=== PATIENT | female | born 1960 | race Caucasian/White ===

== ENCOUNTER 2017-04-14 10:31 | Inpatient (IN) ==
[2017-04-14] MEDS ORDERED: 0.9 % Sodium Chloride 1,000 ML IVC ONE (10:33)
[2017-04-14] MEDS ORDERED: Ipratropium/Albuterol Neb 3 ML IH ONE (10:33)
[2017-04-14] MEDS ORDERED: methylPREDNISolone 125 MG/2 ML VIAL IVP ONE (10:33)
--- NOTE | 2017-04-14 10:41 | Emergency Department Note ---
Disposition Clinical Impression: COPD (chronic obstructive pulmonary disease) Qualifiers: COPD type: unspecified COPD Qualified Code(s): J44.9 - Chronic obstructive pulmonary disease, unspecified Disposition: Home, Self-Care Condition: Fair General Adult HPI - General Chief complaint: ED Upper Respiratory Infection Stated complaint: cough, fever Time Seen by Provider: 04/14/17 10:33 Source: patient, EMS Mode of arrival: EMS Limitations: no limitations Nursing Notes Reviewed: Yes Vital Signs Reviewed: Yes - History of Present Illness HPI Narrative: 57 year old female history of COPD, hypertension presents for evaluation of dyspnea. Patient notes progressive dyspnea over the past month. Patient is a resident at [facility]. Patients also noted a productive white cough. Patient reports fevers. Patients also been using her albuterol nebs at home. Patient's oxygen dependent on for a half liters. Patient also reports chest pain. Denies nausea vomiting or abdominal pain. Pain Scale: 10 - Related Data Home Medications Medication Instructions Recorded Confirmed Buspirone HCl [Buspar] 15 - 30 mg PO BID 01/06/15 01/30/16 Montelukast [Singulair] 10 mg PO DAILY 01/06/15 01/30/16 Omeprazole [PriLOSEC] 40 mg PO DAILY 01/06/15 01/30/16 Alendronate Sodium 70 mg PO WE 01/08/15 01/30/16 Albuterol Sulfate [Proair Hfa] 2 puff IH Q4-6H PRN 09/02/15 01/30/16 Fluticasone/Salmeterol [Advair 1 each IH BID 09/02/15 01/30/16 250-50 Diskus] Polyethylene Glycol 3350 [MiraLAX] 17 gm PO DAILY PRN 10/01/15 01/30/16 predniSONE [PredniSONE] 10 mg PO DAILY 10/01/15 01/30/16 Cholecalciferol (Vitamin D3) 10,000 unit PO 2XW 01/30/16 01/30/16 [Vitamin D3] Guaifenesin [Mucinex] 1,200 mg PO BID PRN 01/30/16 01/30/16 Metoprolol XL (24 HR) Succ [Toprol 25 mg PO DAILY 01/30/16 01/30/16 Xl] Roflumilast [Daliresp] 500 mcg PO DAILY 01/30/16 01/30/16 Tiotropium [Spiriva] 18 mcg IH 0700 01/30/16 01/30/16 ALPRAZolam [Xanax 1 MG Tablet] 1 mg PO TID PRN 04/14/17 04/14/17 Albuterol Sulfate [Ventolin Hfa] 2 puff PO Q6HR PRN 04/14/17 04/14/17 Guaifenesin [Mucinex] 1,200 mg PO BID 04/14/17 04/14/17 Guaifenesin/Pseudoephedrne HCl 1 each PO 04/14/17 04/14/17 [Mucinex D ER 1,200-120 mg Tab] Ipratropium/Albuterol Neb [Duoneb] 3 ml IH Q6HR 04/14/17 04/14/17 Montelukast [Singulair] 10 mg PO DAILY 04/14/17 04/14/17 Oxycodone HCl 15 mg PO Q4HR PRN 04/14/17 04/14/17 Oxycodone HCl [Oxaydo] 5 mg PO Q4HR PRN 04/14/17 04/14/17 Tiotropium [Spiriva] 18 mcg IH 04/14/17 Previous Rx's Medication Instructions Recorded Azithromycin [Zithromax] 500 mg PO DAILY #10 tablet 02/04/16 Docusate [Colace] 100 mg PO BID #30 capsule 02/04/16 Ipratropium/Albuterol Neb [Duoneb] 3 ml IH Q4HR PRN #30 vial.neb 02/04/16 predniSONE [PredniSONE] 60 mg PO DAILY 10 Days tablet 02/04/16 ALPRAZolam [Xanax 0.5 MG Tablet] 0.75 mg PO HS #14 tablet 02/05/16 Ondansetron HCl [Zofran] 4 mg PO 2-3XD PRN #20 tablet 03/17/16 Allergies Allergy/AdvReac Type Severity Reaction Status Date / Time acetaminophen [From Tylenol] Allergy Rash Verified 09/23/15 06:03 chlordiazepoxide Allergy Rash Verified 09/23/15 06:03 [From Librium] All systems ED: reviewed and negative except as stated. Constitutional: Reports: as per HPI, fever Eyes: Reports: as per HPI ENT ED: Reports: as per HPI Cardiovascular: Reports: as per HPI, chest pain Respiratory: Reports: as per HPI, cough, dyspnea, sputum production Gastrointestinal: Reports: as per HPI. Denies: abdominal pain, nausea, vomiting Genitourinary: Reports: as per HPI Musculoskeletal: Reports: as per HPI Integumentary: Reports: as per HPI Neurological: Reports: as per HPI Psychiatric: Reports: as per HPI Endocrine: Reports: as per HPI Hematological/Lymphatic: Reports: as per HPI Past Medical History - Past Medical History Medical history: Reports: COPD, hypertension, RA Surgical history: Reports: non-contributory Psychiatric history: Reports: anxiety DIETIST history: Reports: no DIETIST history - Social History Smoking Status: Former smoker Smokeless Tobacco Status: No Alcohol use: Reports: none Drug use: Reports: none Physical Exam - General Limitations: no limitations General appearance: alert, in no apparent distress - Head Head exam: atraumatic, normocephalic, normal inspection - Eye Eye exam: Present: normal appearance, EOMI - ENT ENT exam: normal exam, mucous membranes moist - Neck Neck exam: Present: normal inspection - Chest Chest inspection: Present: normal inspection, symmetric chest wall rise - Respiratory Respiratory exam: Present: other (Diffusely diminished with scattered rhonchi). Absent: respiratory distress - Cardiovascular Cardiovascular exam: Present: regular rate - Abdominal Exam Abdominal exam: Present: soft, Non-Tender - Extremities Exam Extremities exam: Present: normal inspection. Absent: pedal edema - Back Exam Back exam: Present: normal inspection - Neurological Exam Neurological exam: Present: alert, oriented X3 - Skin Skin exam: Present: warm, dry, intact, normal color Course Course Narrative: She presents via EMS. Patient appeared to have increased work of breathing. Patient will get a chest x-ray, troponin and steroids. Basic labs EKG. Disposition likely admission. - Reevaluation(s) Reevaluation #1: Patient airways appeared to improve with aerosols and steroids. Patient's chest x-ray shows no focal findings. However the patient remains tachycardic requiring oxygen supplementation. Given the patient's chest x-ray findings and her structural kyphosis a CT scan of the chest will be ordered to further identify any potential etiology of the patient's symptoms. Time: 11:50 Vital Signs Temperature 98.4 F 04/14/17 10:33 Pulse Rate 102 04/14/17 10:33 Respiratory Rate 21 12/28/17 10:33 Blood Pressure 116/74 04/14/17 10:33 O2 Sat by Pulse Oximetry 99 04/14/17 10:33 Temperature 98.2 F 04/14/17 18:43 Pulse Rate 105 04/14/17 18:43 Respiratory Rate 18 04/14/17 18:43 Blood Pressure 95/64 04/14/17 18:43 O2 Sat by Pulse Oximetry 94 04/14/17 18:43 Oxygen Delivery Oxygen Delivery Room Air Medical Decision Making - [facility] Narrative Medical decision making narrative: 57-year-old female presents for evaluation of a cough and fever. Had subjective fevers. Presents from a nursing facility. Patient appeared to be in moderate distress with increased work of breathing. Patient was not requiring increased oxygen supplementation. Baseline 4.5 L. Patient was treated with triple nebs as well as steroids. Patient's increased work of breathing has improved. Patient remained tachycardic. Patient's chest x-ray shows no acute findings. Did show remote granulomatous process patient denies history of TB or TB exposure. Given the patient's tachycardia as well as chest x-ray findings a CT of the chest will be pursued. Patient was also started on Levaquin given her productive cough and high risk for COPD. - Lab Data Lab results reviewed: Yes I reviewed the patient's lab results. Result diagrams: 04/14/17 10:43 04/14/17 10:43 Lab Results 04/14/17 04/14/17 04/14/17 Range/Units 10:43 10:43 10:43 WBC 4.8 (4.3-11.1) K/mcL RBC 4.03 (3.82-4.97) M/mcL Hgb 9.5 L (11.5-15.4) g/dL Hct 32.3 L (35.3-44.9) % MCV 80.1 L (83.0-100.0) fL MCH 23.6 L (28.0-33.3) pg MCHC 29.4 L (31.6-35.5) g/dL RDW 15.1 H (11.5-14.5) % Plt Count 231 (140-400) K/mcL MPV 8.9 L (9.4-12.4) fL Immature Gran % 0.6 (0-4) % Seg Neutrophils % 71.9 % Lymphocytes % 13.1 % Monocytes % 12.5 % Eosinophils % 1.7 % Basophils % 0.2 % Neutrophils # 3.5 (1.6-8.9) K/mcL Lymphocytes # 0.6 (0.6-4.6) K/mcL Monocytes # 0.6 (0.0-1.3) K/mcL Eosinophils # 0.1 (0.0-0.6) K/mcL Basophils # 0.0 (0.0-0.2) K/mcL Sodium 132 L (136-145) mEq/L Potassium 4.6 (3.5-5.1) mEq/L Chloride 95 L (98-107) mEq/L Carbon Dioxide 35 H (23-29) mEq/L BUN 8 (6-20) mg/dL Creatinine 0.51 L (0.60-1.20) mg/dL Est GFR ( Amer) > 60 (> 60) Est GFR (Non-Af Amer) > 60 (> 60) BUN/Creatinine Ratio 16 (6-26) Glucose 107 H (70-105) mg/dL Calculated Osmolality 273 L (280-300) Lactic Acid 1.1 (0.5-2.2) mmol/L Calcium 9.2 (8.6-10.3) mg/dL Troponin I (< 0.04) ng/mL B-Natriuretic Peptide (Less than 100) pg/mL 04/14/17 04/14/17 Range/Units 10:43 10:43 WBC (4.3-11.1) K/mcL RBC (3.82-4.97) M/mcL Hgb (11.5-15.4) g/dL Hct (35.3-44.9) % MCV (83.0-100.0) fL MCH (28.0-33.3) pg MCHC (31.6-35.5) g/dL RDW (11.5-14.5) % Plt Count (140-400) K/mcL MPV (9.4-12.4) fL Immature Gran % (0-4) % Seg Neutrophils % % Lymphocytes % % Monocytes % % Eosinophils % % Basophils % % Neutrophils # (1.6-8.9) K/mcL Lymphocytes # (0.6-4.6) K/mcL Monocytes # (0.0-1.3) K/mcL Eosinophils # (0.0-0.6) K/mcL Basophils # (0.0-0.2) K/mcL Sodium (136-145) mEq/L Potassium (3.5-5.1) mEq/L Chloride (98-107) mEq/L Carbon Dioxide (23-29) mEq/L BUN (6-20) mg/dL Creatinine (0.60-1.20) mg/dL Est GFR ( Amer) (> 60) Est GFR (Non-Af Amer) (> 60) BUN/Creatinine Ratio (6-26) Glucose (70-105) mg/dL Calculated Osmolality (280-300) Lactic Acid (0.5-2.2) mmol/L Calcium (8.6-10.3) mg/dL Troponin I < 0.03 (< 0.04) ng/mL B-Natriuretic Peptide 39 (Less than 100) pg/mL - Radiology Data Radiology results reviewed: Yes I reviewed the patient's radiology results. Chest X-Ray 04/14/17 10:33 IMPRESSION: 1. No acute pulmonary process or findings concerning for post primary tuberculosis. 2. Mediastinal calcified lymph nodes consistent with remote healed granulomatous process. D/ /14/2017 11:32:44 Baljeet Fontana MD / mervat Interpreting Provider: Baljeet Fontana MD Chest X-Ray 04/14/17 10:33 IMPRESSION: 1. No acute pulmonary process or findings concerning for post primary tuberculosis. 2. Mediastinal calcified lymph nodes consistent with remote healed granulomatous process. D/ /14/2017 11:32:44 Baljeet Fontana MD / mervat Interpreting Provider: Baljeet Fontana MD Chest CTA 04/14/17 11:49 IMPRESSION: Patient respiratory motion artifact somewhat limits evaluation. Within this limitation no definite evidence for pulmonary embolism identified. No acute findings are seen to the chest. Stable cardiomegaly. Emphysema. D/ / 04/14/2017 13:20:35 Ricco Fisher MD / shaka Interpreting Provider: Ricco Fisher MD - EKG Data EKG #1 EKG attestation: Yes I reviewed and interpreted this EKG. EKG shows normal: sinus rhythm Rate: tachycardia Rhythm: NSR Selden/QRS: left axis deviation Q waves: III, aVF T wave inversions noted in: v1, v2, v3 When compared to previous EKG there are: no significant changes Interpretation: no acute changes, unchanged when compared to prior tracing (date ) (2015) S.BJay Jay - Daniel Situation: Demographics Background: Presenting Complaint Assessment: Vital Signs, Course and respsone to treatment, Patient/Family Expectation Recommendation: Barrier(s) to disposition, Recommendation based on pending studies, treatments, or consults S.BJay Jay Report Given to: Dr. Chapo Sanchez Repor Time: 12:17 Attestation Statement - Attestation Attestation: I examined this patient and my medical decision-making was reviewed with the Resident Physician. I agree with the documented findings, disposition and treatment plan as described except to the extent set forth below. Patiently ED with shortness of breath. Cough. Congested. Sent from the longterm. She states she has been sick for a couple of weeks. On examination she is mildly tachypneic. Lungs diminished. Diffuse wheezing on arrival. Plan. Nebs and steroids. Chest x-ray does not show any obvious acute process. Checking a CTA as the patient is tachycardic. CTA does not show an obvious primary embolism. Patient was admitted to hospitalist.
[2017-04-14 11:02] LABS: Basophils % 0.2 %; Eosinophils # 0.1 K/mcL (0.0-0.6); Eosinophils % 1.7 %; Hematocrit 32.3 % (35.3-44.9); Hemoglobin 9.5 g/dL (11.5-15.4); Immature Granulocytes % 0.6 % (0-4); Lymphocytes # 0.6 K/mcL (0.6-4.6); Lymphocytes % 13.1 %; Mean Corpuscular HGB Conc 29.4 g/dL (31.6-35.5); Mean Corpuscular Hemoglobin 23.6 pg (28.0-33.3); Mean Corpuscular Volume 80.1 fL (83.0-100.0); Mean Platelet Volume 8.9 fL (9.4-12.4); Monocytes # 0.6 K/mcL (0.0-1.3); Monocytes % 12.5 %; Neutrophils # 3.5 K/mcL (1.6-8.9); Platelet Count 231 K/mcL (140-400); Red Blood Count 4.03 M/mcL (3.82-4.97); Red Cell Distribution Width 15.1 % (11.5-14.5); Segmented Neutrophils % 71.9 %
[2017-04-14 11:14] LABS: BUN/Creatinine Ratio 16 (6-26); Blood Urea Nitrogen 8 mg/dL (6-20); Calcium 9.2 mg/dL (8.6-10.3); Carbon Dioxide 35 mEq/L (23-29); Chloride 95 mEq/L (98-107); Glucose 107 mg/dL (70-105); Osmolality,Calculated 273 (280-300); Potassium 4.6 mEq/L (3.5-5.1); Sodium 132 mEq/L (136-145); eGFR For African Americans > 60 (> 60); eGFR For Non-African Americans > 60 (> 60)
[2017-04-14] MEDS ORDERED: Levofloxacin 750 MG/150 ML 750 MG/150 ML BAG IVPB ONE (11:42)
[2017-04-14] MEDS ORDERED: *HR* OxyCODONE Immed Rel 5 MG TABLET PO ONE (11:51)
[2017-04-14] MEDS ORDERED: Lidocaine -MPF 1% 2 ML VIAL INFILT ONE (12:14)
--- NOTE | 2017-04-14 14:51 | Internal Med History&Physical ---
Date of Encounter: 04/15/17 Time of Encounter: 18:00 Assessment and Plan (1) Acute exacerbation of chronic obstructive airways disease Current visit: No Status: Acute - SOB due to *COPD exacerbation caused by URTI vs allergen exposureVs medication nonocompliance - no infiltrate on CXR PLAN: - Aerosols q 4 hr and PRN SOB - Solu-medrol 40 mg IV q 6 hr - O2 to keep SpO2 higher than 92% (SpO higher than 95% if CAD) - CBCD, BMP in AM - Sputum Gram stain, C+S - Tylenol 650 mg PO q 4-6 hr PRN pain/fever - Home meds - check the list and restart - ABS (2) Normocytic anemia Current visit: No Status: Chronic H&H is stable, Cont to monitor. (3) HTN (hypertension) Current visit: No Status: Chronic The home meds list is not including antihypertensive meds, we will monitor Blood pressure and start PRN antihypertensive while inpatient. Qualifiers: Hypertension type: essential hypertension Qualified Code(s): I10 - Essential (primary) hypertension (4) Anxiety Current visit: No Status: Chronic (5) Hyponatremia Current visit: Yes Status: Acute Hypovolumic hyponatremia, starting fluid hydration with NS. (6) DVT prophylaxis Current visit: No Status: Acute - Heparin 5000 U SQ BID Internal Medicine - H&P: HPI Admitted From: Long-term Nursing Facility Plans for Post Hospital Care: Home History of present illness: Ms. Stark is a 57 year old female with past medical history of COPD (oxygen dependent 4.5 L), hypertension presents with progressive SOB associated with productive white cough and fever. Patient was treated with triple nebs as well as steroids. Patient's increased work of breathing has improved. Patient remained so CTA was obtained to R/O PE and was negative. The patient was admitted for further evaluation of COPD. Past Med Surg Social Fam HX - Past Medical History Medical history: COPD, hypertension, RA Psychiatric history: anxiety - Past Surgical History Surgical History: non-contributory - Social History Smoking Status: Former smoker Smokeless Tobacco Status: No Alcohol use: none Drug use: none - Family History Father History Unknown: Yes Living Status: Brother History Unknown: Yes Hx Family Cardiac Disorders: Yes (HTN) Hx Family Respiratory Disorders: Yes (COPD) Hx Family Cancer: No Hx Family GI Disorders: No Hx Family Endocrine Disorder: No Hx Family Neuromuscular Disorders: No Hx Family Neurologic Disorders: No Hx Family HEENT Disorders: No Hx Family Autoimmune Disorders: No Internal Medicine - H&P: Meds Buspirone HCl [Buspar] 15 - 30 mg PO BID 01/06/15 [History] Montelukast [Singulair] 10 mg PO DAILY 01/06/15 [History] Omeprazole [PriLOSEC] 40 mg PO DAILY 01/06/15 [History] Alendronate Sodium 70 mg PO WE 01/08/15 [History] Albuterol Sulfate [Proair Hfa] 2 puff IH Q4-6H PRN 09/02/15 [History] Fluticasone/Salmeterol [Advair 250-50 Diskus] 1 each IH BID 09/02/15 [History] Polyethylene Glycol 3350 [MiraLAX] 17 gm PO DAILY PRN 10/01/15 [History] predniSONE [PredniSONE] 10 mg PO DAILY 10/01/15 [History] Cholecalciferol (Vitamin D3) [Vitamin D3] 10,000 unit PO 2XW 01/30/16 [History] Guaifenesin [Mucinex] 1,200 mg PO BID PRN 01/30/16 [History] Metoprolol XL (24 HR) Succ [Toprol Xl] 25 mg PO DAILY 01/30/16 [History] Roflumilast [Daliresp] 500 mcg PO DAILY 01/30/16 [History] Tiotropium [Spiriva] 18 mcg IH 0700 01/30/16 [History] Azithromycin [Zithromax] 500 mg PO DAILY #10 tablet 02/04/16 [Rx] Docusate [Colace] 100 mg PO BID #30 capsule 02/04/16 [Rx] Ipratropium/Albuterol Neb [Duoneb] 3 ml IH Q4HR PRN #30 vial.neb 02/04/16 [Rx] predniSONE [PredniSONE] 60 mg PO DAILY 10 Days tablet 02/04/16 [Rx] ALPRAZolam [Xanax 0.5 MG Tablet] 0.75 mg PO HS #14 tablet 02/05/16 [Rx] Ondansetron HCl [Zofran] 4 mg PO 2-3XD PRN #20 tablet 03/17/16 [Rx] ALPRAZolam [Xanax 1 MG Tablet] 1 mg PO TID PRN 04/14/17 [History] Albuterol Sulfate [Ventolin Hfa] 2 puff PO Q6HR PRN 04/14/17 [History] Guaifenesin [Mucinex] 1,200 mg PO BID 04/14/17 [History] Guaifenesin/Pseudoephedrne HCl [Mucinex D ER 1,200-120 mg Tab] 1 each PO [History] Ipratropium/Albuterol Neb [Duoneb] 3 ml IH Q6HR 04/14/17 [History] Montelukast [Singulair] 10 mg PO DAILY 04/14/17 [History] Oxycodone HCl 15 mg PO Q4HR PRN 04/14/17 [History] Oxycodone HCl [Oxaydo] 5 mg PO Q4HR PRN 04/14/17 [History] Tiotropium [Spiriva] 18 mcg IH 04/14/17 [History] 3 Allergy/AdvReac Type Severity Reaction Status Date / Time acetaminophen [From Tylenol] Allergy Rash Verified 09/23/15 06:03 chlordiazepoxide Allergy Rash Verified 09/23/15 06:03 [From Librium] All Systems PM: A 10-system review of systems was performed and is negative for pertinent findings except as documented above in the HPI. - Constitutional Constitutional: fatigue, no chills, no fever(s), no night sweats - Cardiovascular Cardiovascular ROS IM: chest pain, dyspnea, no diaphoresis, no lightheadedness, no palpitations, no syncope - Respiratory Respiratory: cough, dyspnea, wheezing, chest congestion, excessive phlegm production - Gastrointestinal Gastrointestinal: no abdominal pain, no diarrhea, no hematemesis, no hematochezia, no melena, no nausea, no vomiting - Genitourinary Genitourinary: no change in urinary stream, no dysuria, no flank pain, no hematuria - Neurological Neurological ROS: no confusion, no convulsions, no focal weakness, no numbness, no tingling, no tremor(s) - Constitutional Vitals: Temp Pulse Resp BP Pulse Ox 98.9 F 117 18 104/68 94 04/14/17 13:55 04/14/17 13:55 04/14/17 13:55 04/14/17 13:55 04/14/17 13:55 General appearance: Present: mild distress, A&O X 3, pleasant - Head Head exam: Present: atraumatic, normocephalic - Neck Neck exam general surgery: Present: supple, trachea midline. Absent: lymphadenopathy - Respiratory Respiratory exam: Present: rhonchi, wheezes. Absent: accessory muscle use, rales - Cardiovascular Cardiovascular exam: Present: RRR, +S1, +S2. Absent: diastolic murmur, gallop, rubs, systolic murmur - Extremities Exam Extremities exam: Present: warm, radial pulses palpable and symmetrical. Absent : calf tenderness, cyanotic, pedal edema - Neurological Exam Neurological exam: Present: CN II-XII intact, oriented X3, no focal deficits. Absent: pronater drift, facial droop, speech deficit Internal Med - H&P Results - Labs CBC & Chem 7: 04/15/17 03:22 04/15/17 03:22 - VTE Documentation of Mechanical Device: Intermittent pneumatic compression device
[2017-04-14] MEDS ORDERED: Acetaminophen 325 MG TABLET PO PRN (15:28)
[2017-04-14] MEDS ORDERED: Naloxone 0.4 MG/ML INJ IVP PRN (15:28)
[2017-04-14] MEDS ORDERED: 0.9 % Sodium Chloride 1,000 ML IVC SCH (15:30)
[2017-04-14] MEDS: Ipratropium/Albuterol Neb 3 ML IH SCH ×2 (16:16→22:03)
[2017-04-14] MEDS: 0.9 % Sodium Chloride 1,000 ML IVC SCH (16:25)
[2017-04-14] MEDS: *HR* Morphine 2 MG/ML SYRINGE IVP PRN ×2 (16:25→20:37)
[2017-04-14] MEDS ORDERED: Ipratropium/Albuterol Neb 3 ML IH SCH (17:00)
[2017-04-14] MEDS: MethylPREDNISolone 40 MG/ML VIAL IVP SCH (17:12)
[2017-04-14] MEDS: *HR* OxyCODONE Immed Rel 15 MG TABLET PO PRN (17:12)
[2017-04-14] MEDS: ALPRAZolam 1 MG TABLET PO PRN ×2 (17:17→20:42)
[2017-04-14] MEDS: *HR* OxyCODONE Immed Rel 5 MG TABLET PO PRN (19:42)
[2017-04-15] MEDS: *HR* OxyCODONE Immed Rel 15 MG TABLET PO PRN ×4 (00:01→18:36)
[2017-04-15] MEDS: MethylPREDNISolone 40 MG/ML VIAL IVP SCH ×5 (00:01→22:13)
[2017-04-15] MEDS: *HR* Morphine 2 MG/ML SYRINGE IVP PRN ×4 (03:11→22:12)
[2017-04-15] MEDS: Ipratropium/Albuterol Neb 3 ML IH SCH ×4 (03:42→21:05)
[2017-04-15 04:09] LABS: Hemoglobin 8.6 g/dL (11.5-15.4); Immature Granulocytes % 0.7 % (0-4); Lymphocytes # 0.3 K/mcL (0.6-4.6); Lymphocytes % 12.2 %; Mean Corpuscular HGB Conc 29.7 g/dL (31.6-35.5); Mean Corpuscular Hemoglobin 23.8 pg (28.0-33.3); Mean Corpuscular Volume 80.1 fL (83.0-100.0); Mean Platelet Volume 9.5 fL (9.4-12.4); Monocytes # 0.1 K/mcL (0.0-1.3); Monocytes % 2.6 %; Neutrophils # 2.3 K/mcL (1.6-8.9); Platelet Count 215 K/mcL (140-400); Red Blood Count 3.62 M/mcL (3.82-4.97); Red Cell Distribution Width 15.2 % (11.5-14.5); Segmented Neutrophils % 84.5 %
[2017-04-15] MEDS: 0.9 % Sodium Chloride 1,000 ML IVC SCH ×3 (04:09→22:11)
[2017-04-15 04:18] LABS: INR 1.1; Prothrombin Time 12.2 Seconds (9.4-12.1)
[2017-04-15 04:21] LABS: Activated Partial Thrombo Time 33.7 Seconds (26.0-36.0)
[2017-04-15 04:23] LABS: Alanine Aminotransferase 12 Units/L (7-52); Albumin 3.5 g/dL (3.5-5.7); Albumin/Globulin Ratio 1.1 (1.1-2.2); Alkaline Phosphatase 62 Units/L (34-104); Aspartate Amino Transferase 12 Units/L (13-39); BUN/Creatinine Ratio 16 (6-26); Bilirubin,Total 0.2 mg/dL (0.3-1.0); Blood Urea Nitrogen 7 mg/dL (6-20); Calcium 8.4 mg/dL (8.6-10.3); Carbon Dioxide 31 mEq/L (23-29); Chloride 103 mEq/L (98-107); Chol/HDL Ratio 2.1 (0-4.9); Cholesterol 177 mg/dL (< 200); Globulin 3.2 g/dL (2.4-3.5); Glucose 162 mg/dL (70-105); HDL Cholesterol 83 mg/dL (40-59); LDL Cholesterol,Calculated 86 mg/dL (0-99); Magnesium 1.9 mg/dL (1.6-2.6); Osmolality,Calculated 288 (280-300); Phosphorous 2.3 mg/dL (2.7-4.5); Potassium 3.8 mEq/L (3.5-5.1); Sodium 138 mEq/L (136-145); Total Protein 6.7 g/dL (6.4-8.9); Triglycerides 38 mg/dL (< 150); eGFR For African Americans > 60 (> 60); eGFR For Non-African Americans > 60 (> 60)
[2017-04-15 05:11] LABS: % Iron Saturation 4 % (15-50); Iron 21 mcg/dL (50-170); Transferrin 336 mg/dL (203-362)
[2017-04-15] MEDS: *HR* OxyCODONE Immed Rel 5 MG TABLET PO PRN ×2 (05:27→18:57)
[2017-04-15] MEDS: Ondansetron ODT 4 MG TAB.RAPDIS SL PRN (05:27)
[2017-04-15] MEDS: *HR* Heparin 5,000 UNIT/ML VIAL SQ SCH ×2 (05:27→16:43)
[2017-04-15] MEDS ORDERED: Levofloxacin 500 MG/100 ML 500 MG/100 ML BAG IVPB SCH (09:00)
[2017-04-15] MEDS: levoFLOXacin 500 MG TABLET PO SCH (09:01)
[2017-04-15] MEDS: ALPRAZolam 1 MG TABLET PO PRN ×2 (09:17→18:57)
--- NOTE | 2017-04-15 09:26 | Electrocardiograph Report ---
[address] [place] [address] Test Date: 2017-04-14 Pat Name: Anju Stark Department: 104 Room: 2A36 Gender: F Operator Receptionist: GERALDINE : 1960 Requested By: Kalpesh Quiros Order Number: [id number] Reading MD: Monse Rowley Measurements Intervals Wall Rate: 103 P: 21 CT: 143 QRS: -11 QRSD: 86 T: 9 QT: 316 QTc: 375 Interpretive Statements SINUS TACHYCARDIA MODERATE T-WAVE ABNORMALITY, CONSIDER ANTERIOR ISCHEMIA Electronically Signed On 04-15-2017 9:24:27 EST by Monse Rowley
[2017-04-15] MEDS ORDERED: Tiotropium 18 MCG inhalation IH SCH (10:00)
--- NOTE | 2017-04-15 10:45 | Internal Med Progress Note ---
<Mirian Murphy - Last Filed: 04/15/17 15:56> Date of Encounter: 04/15/17 Time of Encounter: 10:00 - Assessment and plan (1) Acute and chronic respiratory failure ([id number]) Current Visit: No Status: Acute Assessment and plan: - Progressive dyspnea on admission. - Secondary to COPD exacerbation - CTA chest found emphysema but no acute abnormality. No evidence of PE. - Continue Solu-Medrol, Symbicort, bronchodilators and supplemental oxygen for COPD. - Continue to monitor closely. Qualifiers: Respiratory failure complication: hypoxia and hypercapnia Qualified Code(s) : J96.21 - Acute and chronic respiratory failure with hypoxia; J96.22 - Acute and chronic respiratory failure with hypercapnia; J96.22 - Acute and chronic respiratory failure with hypercapnia; J96.22 - Acute and chronic respiratory failure with hypercapnia (2) Acute exacerbation of chronic obstructive airways disease Current Visit: No Status: Acute Assessment and plan: - CTA chest found emphysema but no acute abnormality. - Continue Solu-Medrol, Symbicort, bronchodilators and supplemental oxygen. (3) Anemia Current Visit: Yes Status: Chronic Assessment and plan: - Hgb 9.5 on admission. - Likely iron deficiency anemia given low iron on iron panel. - Hgb dropped to 8.6 today. - Patient denies hematochezia, melena, hematuria or other sign of active bleeding. - Will check stool occult test. - Start iron supplement. - Continue to monitor Hgb closely Qualifiers: Anemia type: iron deficiency Iron deficiency anemia type: unspecified iron deficiency Qualified Code(s): D50.9 - Iron deficiency anemia, unspecified (4) Anxiety Current Visit: No Status: Chronic Assessment and plan: - Continue patient's home regimen of Xanax. (5) Hyponatremia Current Visit: Yes Status: Acute Assessment and plan: - Na 132 on admission. - Improves as 138 today. - Continue to monitor. (6) HTN (hypertension) Current Visit: No Status: Chronic Assessment and plan: - BP within normal range most of time. - Continue current antihypertensive regimen. Qualifiers: Hypertension type: essential hypertension Qualified Code(s): I10 - Essential (primary) hypertension (7) DVT prophylaxis Current Visit: No Status: Acute Assessment and plan: - Continue SQ heparin - Subjective Interval history: Patient was seen and examined this morning. Patient still has some cough and reports breathing better. Patient complains about her chronic back pain and likes to be on pain medications as the way she got in [facility]. Patient denies fever, chills, chest pain, abdominal pain, nausea, vomiting, diarrhea. Patient reports using 4.5 L oxygen at [facility]. - Constitutional Vitals: Temp Pulse Resp BP Pulse Ox 98.0 F 95 18 137/88 97 04/15/17 07:07 04/15/17 07:07 04/15/17 07:07 04/15/17 07:07 04/15/17 07:07 General appearance: Present: mild distress, A&O X 3, pleasant - Head Head exam: Present: normal inspection - Eye Eye exam: Present: EOMI, conjuntiva pink, sclera anicteric - Neck Neck exam general surgery: Present: normal inspection, supple, trachea midline - Respiratory Respiratory exam: Present: wheezes. Absent: accessory muscle use - Cardiovascular Cardiovascular exam: Present: RRR, +S1, +S2 - GI/Abdominal GI/Abdominal exam: Present: normal bowel sounds, soft, no peritoneal signs. Absent: tenderness - Extremities Exam Extremities exam: Present: pedal edema, warm. Absent: cyanotic - Neurological Exam Neurological exam: Present: alert, oriented X3. Absent: facial droop, speech deficit - Skin Skin exam: Present: dry, warm Internal Medicine: Result - Labs CBC & Chem 7: 04/15/17 03:22 04/15/17 03:22 Labs: Short CBC 04/15/17 Range/Units 03:22 WBC 2.7 L (4.3-11.1) K/mcL Hgb 8.6 L (11.5-15.4) g/dL Hct 29.0 L (35.3-44.9) % Plt Count 215 (140-400) K/mcL Neutrophils # 2.3 (1.6-8.9) K/mcL BMP 04/15/17 03:22 Sodium 138 Potassium 3.8 Chloride 103 Carbon Dioxide 31 H BUN 7 Creatinine 0.45 L Glucose 162 H Calcium 8.4 L Cardiac Enzymes 04/14/17 04/14/17 04/15/17 Range/Units 16:39 22:48 03:22 Troponin I < 0.03 < 0.03 < 0.03 (< 0.04) ng/mL Liver Function 04/15/17 Range/Units 03:22 Total Bilirubin 0.2 L (0.3-1.0) mg/dL AST 12 L (13-39) Units/L ALT 12 (7-52) Units/L Alkaline Phosphatase 62 (34-104) Units/L Albumin 3.5 (3.5-5.7) g/dL - ABG Interpretation ABG results: PT/INR, D-dimer PT 12.2 Seconds (9.4-12.1) H 04/15/17 03:22 - VTE Documentation of Mechanical Device: Intermittent pneumatic compression device Consult Discharge Plan - Plan Referrals: Michael Higginbotham MD [Primary Care Provider] - <Josh Robert - Last Filed: 04/15/17 18:57> Date of Encounter: 04/15/17 - Assessment and plan (1) Acute and chronic respiratory failure ([id number]) Current Visit: No Status: Acute Qualifiers: Respiratory failure complication: hypoxia and hypercapnia Qualified Code(s) : J96.21 - Acute and chronic respiratory failure with hypoxia; J96.22 - Acute and chronic respiratory failure with hypercapnia; J96.22 - Acute and chronic respiratory failure with hypercapnia; J96.22 - Acute and chronic respiratory failure with hypercapnia (2) COPD (chronic obstructive pulmonary disease) Current Visit: Yes Status: Acute Qualifiers: COPD type: COPD with acute exacerbation Qualified Code(s): J44.1 - Chronic obstructive pulmonary disease with (acute) exacerbation (3) Anemia Current Visit: Yes Status: Chronic Qualifiers: Anemia type: iron deficiency Iron deficiency anemia type: unspecified iron deficiency Qualified Code(s): D50.9 - Iron deficiency anemia, unspecified (4) Hyponatremia Current Visit: Yes Status: Acute (5) HTN (hypertension) Current Visit: No Status: Chronic Qualifiers: Hypertension type: essential hypertension Qualified Code(s): I10 - Essential (primary) hypertension (6) Anxiety Current Visit: No Status: Chronic - Constitutional Vitals: Temp Pulse Resp BP Pulse Ox 98.1 F 107 20 143/79 96 04/15/17 15:16 04/15/17 15:16 04/15/17 15:24 04/15/17 15:16 04/15/17 15:24 Internal Medicine: Result - Labs CBC & Chem 7: 04/15/17 03:22 04/15/17 03:22 Labs: Short CBC 04/15/17 Range/Units 03:22 WBC 2.7 L (4.3-11.1) K/mcL Hgb 8.6 L (11.5-15.4) g/dL Hct 29.0 L (35.3-44.9) % Plt Count 215 (140-400) K/mcL Neutrophils # 2.3 (1.6-8.9) K/mcL BMP 04/15/17 03:22 Sodium 138 Potassium 3.8 Chloride 103 Carbon Dioxide 31 H BUN 7 Creatinine 0.45 L Glucose 162 H Calcium 8.4 L Cardiac Enzymes 04/14/17 04/15/17 Range/Units 22:48 03:22 Troponin I < 0.03 < 0.03 (< 0.04) ng/mL Liver Function 04/15/17 Range/Units 03:22 Total Bilirubin 0.2 L (0.3-1.0) mg/dL AST 12 L (13-39) Units/L ALT 12 (7-52) Units/L Alkaline Phosphatase 62 (34-104) Units/L Albumin 3.5 (3.5-5.7) g/dL Urine 04/15/17 Range/Units 18:10 Urine Color Yellow (Yellow) Urine Clarity Clear (Clear) Urine pH 6.5 (5.0-8.0) pH Units Ur Specific Rule 1.010 (1.010-1.025) Urine Protein Negative (Neg-Trace) mg/dL Urine Glucose (UA) Normal (Normal) mg/dL - ABG Interpretation ABG results: PT/INR, D-dimer PT 12.2 Seconds (9.4-12.1) H 04/15/17 03:22 - Attending Attestation I examined this patient and my medical decision-making was reviewed with the Resident Physician on 04/15/17. I agree with the documented findings, disposition and treatment plan as described except to the extent set forth below. Ms Stark is currently admitted for acute exac COPD and resp failure. She remains moderate to high risk due to potential for worsening respiratory status. Ms Stark feels anxious. She denies pain at this time. No fever or chills. Breathing about the same. No GI issues. Exam Alert. Mod resp distress Mucus membranes dry Heart reg and tachy Lungs with scant end exp wheeze Abd soft No edema I/P 1. Resp failure 2. COPD Further diagnoses and plan as above.
[2017-04-15] MEDS: Budesonide/Formoterol 160/4.5 MDI IH SCH ×2 (10:56→21:05)
[2017-04-15 12:44] LABS: Adenovirus Not Detected (Not Detect); Bordetella Pertussis Not Detected (Not Detect); Chlamydophila pneumoniae Not Detected (Not Detect); Coronavirus 229E Not Detected (Not Detect); Coronavirus HKU1 Not Detected (Not Detect); Coronavirus NL63 Not Detected (Not Detect); Coronavirus OC43 Not Detected (Not Detect); Human Metapneumovirus Not Detected (Not Detect); Human Rhinovirus/Enterovirus Not Detected (Not Detect); Influenza A Subtype 2009 H1 Not Detected (Not Detect); Influenza A Untypeable Not Detected (Not Detect); Influenza B Not Detected (Not Detect); Mycoplasma pneumoniae Not Detected (Not Detect); Parainfluenza Virus 1 Not Detected (Not Detect); Parainfluenza Virus 2 Not Detected (Not Detect); Parainfluenza Virus 3 Not Detected (Not Detect); Parainfluenza Virus 4 Not Detected (Not Detect); Respiratory Syncytial Virus ***DETECTED*** (Not Detect)
[2017-04-15 18:40] LABS: Bilirubin,Urine Negative (Negative); Blood,Urine Negative (Negative); Clarity,Urine Clear (Clear); Color,Urine Yellow (Yellow); Glucose,Urine (UA) Normal (Normal); Ketones,Urine Negative (Negative); Leukocyte Esterase,Urine Negative (Negative); Nitrite,Urine Negative (Negative); PH,Urine 6.5 pH Units (5.0-8.0); Protein,Urine Negative (Neg-Trace); Urobilinogen,Urine Normal (Normal)
[2017-04-15] MEDS: Saline Nasal Spray 44 ML BOTTLE NS PRN (22:16)
[2017-04-16] MEDS: *HR* OxyCODONE Immed Rel 15 MG TABLET PO PRN ×5 (00:44→20:41)
[2017-04-16] MEDS: ALPRAZolam 1 MG TABLET PO PRN ×3 (00:44→20:42)
[2017-04-16] MEDS: Ipratropium/Albuterol Neb 3 ML IH SCH ×5 (04:13→20:50)
[2017-04-16] MEDS: *HR* Morphine 2 MG/ML SYRINGE IVP PRN ×3 (04:22→18:29)
[2017-04-16 04:46] LABS: Hematocrit 27.1 % (35.3-44.9); Hemoglobin 8.1 g/dL (11.5-15.4); Immature Granulocytes % 0.6 % (0-4); Lymphocytes # 0.6 K/mcL (0.6-4.6); Lymphocytes % 10.9 %; Mean Corpuscular HGB Conc 29.9 g/dL (31.6-35.5); Mean Corpuscular Hemoglobin 23.8 pg (28.0-33.3); Mean Corpuscular Volume 79.7 fL (83.0-100.0); Mean Platelet Volume 9.2 fL (9.4-12.4); Monocytes # 0.5 K/mcL (0.0-1.3); Monocytes % 10.3 %; Neutrophils # 4.1 K/mcL (1.6-8.9); Platelet Count 213 K/mcL (140-400); Red Cell Distribution Width 15.8 % (11.5-14.5); Segmented Neutrophils % 78.2 %
[2017-04-16 05:12] LABS: BUN/Creatinine Ratio 21 (6-26); Blood Urea Nitrogen 9 mg/dL (6-20); Calcium 8.3 mg/dL (8.6-10.3); Carbon Dioxide 32 mEq/L (23-29); Chloride 107 mEq/L (98-107); Glucose 157 mg/dL (70-105); Osmolality,Calculated 290 (280-300); Potassium 3.9 mEq/L (3.5-5.1); Sodium 139 mEq/L (136-145); eGFR For African Americans > 60 (> 60); eGFR For Non-African Americans > 60 (> 60)
[2017-04-16] MEDS: MethylPREDNISolone 40 MG/ML VIAL IVP SCH ×3 (05:49→16:58)
[2017-04-16] MEDS: *HR* Heparin 5,000 UNIT/ML VIAL SQ SCH ×2 (05:50→16:57)
[2017-04-16] MEDS: Saline Nasal Spray 44 ML BOTTLE NS PRN ×2 (05:50→09:10)
[2017-04-16] MEDS: levoFLOXacin 500 MG TABLET PO SCH (08:51)
[2017-04-16] MEDS: Metoprolol XL (24 HR) Succ 25 MG TAB.ER.24H PO SCH (08:51)
[2017-04-16] MEDS ORDERED: Tiotropium 18 MCG inhalation IH SCH (09:00)
[2017-04-16] MEDS: Ondansetron ODT 4 MG TAB.RAPDIS SL PRN (09:06)
[2017-04-16] MEDS: 0.9 % Sodium Chloride 1,000 ML IVC SCH (10:27)
[2017-04-16] MEDS: Budesonide/Formoterol 160/4.5 MDI IH SCH ×2 (10:45→20:50)
[2017-04-16] MEDS: *HR* OxyCODONE Immed Rel 5 MG TABLET PO PRN ×2 (14:24→23:22)
--- NOTE | 2017-04-16 15:07 | Internal Med Progress Note ---
Date of Encounter: 04/16/17 Time of Encounter: 10:00 - Assessment and plan (1) Acute and chronic respiratory failure ([id number]) Current Visit: No Status: Acute Assessment and plan: -Continues to have significant dyspnea. Continue oxygen supplementation Continue treatment of COPD. Qualifiers: Respiratory failure complication: hypoxia and hypercapnia Qualified Code(s) : J96.21 - Acute and chronic respiratory failure with hypoxia; J96.22 - Acute and chronic respiratory failure with hypercapnia; J96.22 - Acute and chronic respiratory failure with hypercapnia; J96.22 - Acute and chronic respiratory failure with hypercapnia (2) RSV bronchitis Current Visit: Yes Status: Acute Assessment and plan: Supportive care. Treat exacerbation of COPD. (3) COPD (chronic obstructive pulmonary disease) Current Visit: Yes Status: Acute Assessment and plan: Most likely developed due to acute RSV infection. Currently on abx, aerosols, steroids Adjustments per respiratory Wean steroids as able Qualifiers: COPD type: COPD with acute exacerbation Qualified Code(s): J44.1 - Chronic obstructive pulmonary disease with (acute) exacerbation (4) Anemia Current Visit: Yes Status: Chronic Assessment and plan: H/H slightly lower today. No evidence of bleeding Stool guiac pending Most likely due to chronic disease On iron supplement. Qualifiers: Anemia type: iron deficiency Iron deficiency anemia type: other iron deficiency Qualified Code(s): D50.8 - Other iron deficiency anemias (5) Hyponatremia Current Visit: Yes Status: Resolved Assessment and plan: - Resolved. (6) HTN (hypertension) Current Visit: No Status: Chronic Assessment and plan: Essentially controlled Continue meds as ordered.- Qualifiers: Hypertension type: essential hypertension Qualified Code(s): I10 - Essential (primary) hypertension (7) Anxiety Current Visit: No Status: Chronic Assessment and plan: - Continue patient's home regimen of Xanax. (8) Osteoporosis Current Visit: No Status: Chronic Assessment and plan: Chronic issue Qualifiers: Osteoporosis type: age-related Presence of current pathological fracture: without current pathological fracture Qualified Code(s): M81.0 - Age-related osteoporosis without current pathological fracture - Subjective Interval history: Ms Stark is currently admitted for acute exac COPD. She is positive for RSV. She remains moderate to high risk due to potential for worsening respiratory status. Ms. Stark is getting breathing treatment at this time. RSV positive in RIP. Still coughing and dyspneic. Aerosols changed to q4h. No fever or chills. Concerned about her medications and timing. - Constitutional Vitals: Temp Pulse Resp BP Pulse Ox 98.0 F 93 16 120/78 100 04/16/17 10:51 04/16/17 10:51 04/16/17 10:51 04/16/17 10:51 04/16/17 10:51 General appearance: Present: mild distress, A&O X 3, pleasant - Head Head exam: Present: normocephalic - Eye Eye exam: Present: EOMI, conjuntiva pink - ENT ENT exam: Present: mucous membranes dry - Respiratory Respiratory exam: Present: decreased breath sounds, wheezes. Absent: rales, rhonchi - Cardiovascular Cardiovascular exam: Present: distant heart sounds, RRR. Absent: tachycardia - GI/Abdominal GI/Abdominal exam: Present: soft. Absent: tenderness - Extremities Exam Extremities exam: Present: warm. Absent: tenderness - Back Exam Additional comments: Increased thoracic kyphosis. - Neurological Exam Neurological exam: Present: alert, oriented X3, no focal deficits - Skin Skin exam: Present: warm. Absent: rash Internal Medicine: Result - Labs CBC & Chem 7: 04/16/17 04:27 04/16/17 04:27 Labs: Short CBC 04/16/17 Range/Units 04:27 WBC 5.2 D (4.3-11.1) K/mcL Hgb 8.1 L (11.5-15.4) g/dL Hct 27.1 L (35.3-44.9) % Plt Count 213 (140-400) K/mcL Neutrophils # 4.1 (1.6-8.9) K/mcL BMP 04/16/17 04:27 Sodium 139 Potassium 3.9 Chloride 107 Carbon Dioxide 32 H BUN 9 Creatinine 0.42 L Glucose 157 H Calcium 8.3 L Urine 04/15/17 Range/Units 18:10 Urine Color Yellow (Yellow) Urine Clarity Clear (Clear) Urine pH 6.5 (5.0-8.0) pH Units Ur Specific Ethel 1.010 (1.010-1.025) Urine Protein Negative (Neg-Trace) mg/dL Urine Glucose (UA) Normal (Normal) mg/dL - ABG Interpretation ABG results: PT/INR, D-dimer PT 12.2 Seconds (9.4-12.1) H 04/15/17 03:22 - VTE Documentation of Mechanical Device: Intermittent pneumatic compression device Consult Discharge Plan - Plan Referrals: Michael Higginbotham MD [Primary Care Provider] -
[2017-04-16] MEDS ORDERED: MethylPREDNISolone 40 MG/ML VIAL IVP SCH (16:00)
[2017-04-16] MEDS ORDERED: Ipratropium/Albuterol Neb 3 ML IH PRN (16:04)
[2017-04-16] MEDS: Mag Hydrox/Al Hydrox/Simeth 30 ML UDC PO PRN (16:58)
[2017-04-16] MEDS ORDERED: MELATONIN PO SCH (21:00)
[2017-04-16] MEDS ORDERED: PYRIDOXINE HCL PO SCH (21:00)
[2017-04-16] MEDS: Melatonin 3 MG TABLET PO PRN (21:41)
[2017-04-16] MEDS: Pyridoxine (B-6) 50 MG TABLET PO SCH (21:41)
[2017-04-17] MEDS: Ipratropium/Albuterol Neb 3 ML IH SCH ×6 (00:57→20:19)
[2017-04-17] MEDS: MethylPREDNISolone 40 MG/ML VIAL IVP SCH ×3 (01:17→17:48)
[2017-04-17] MEDS: *HR* OxyCODONE Immed Rel 15 MG TABLET PO PRN ×5 (02:41→22:14)
[2017-04-17] MEDS: Ondansetron ODT 4 MG TAB.RAPDIS SL PRN (04:16)
[2017-04-17] MEDS: ALPRAZolam 1 MG TABLET PO PRN ×2 (04:28→12:45)
[2017-04-17] MEDS: *HR* Heparin 5,000 UNIT/ML VIAL SQ SCH ×2 (06:20→17:48)
[2017-04-17] MEDS: *HR* OxyCODONE Immed Rel 5 MG TABLET PO PRN ×3 (06:20→20:15)
[2017-04-17 06:47] LABS: Hematocrit 29.1 % (35.3-44.9); Hemoglobin 8.5 g/dL (11.5-15.4); Mean Corpuscular HGB Conc 29.2 g/dL (31.6-35.5); Mean Corpuscular Hemoglobin 23.4 pg (28.0-33.3); Mean Corpuscular Volume 79.9 fL (83.0-100.0); Mean Platelet Volume 9.2 fL (9.4-12.4); Platelet Count 241 K/mcL (140-400); Red Blood Count 3.64 M/mcL (3.82-4.97); Red Cell Distribution Width 15.9 % (11.5-14.5)
[2017-04-17] MEDS: Budesonide/Formoterol 160/4.5 MDI IH SCH ×2 (07:44→20:18)
[2017-04-17 08:18] LABS: BUN/Creatinine Ratio 22 (6-26); Blood Urea Nitrogen 10 mg/dL (6-20); Calcium 8.7 mg/dL (8.6-10.3); Carbon Dioxide 35 mEq/L (23-29); Chloride 103 mEq/L (98-107); Glucose 128 mg/dL (70-105); Magnesium 2.1 mg/dL (1.6-2.6); Osmolality,Calculated 287 (280-300); Potassium 4.1 mEq/L (3.5-5.1); Sodium 138 mEq/L (136-145); eGFR For African Americans > 60 (> 60); eGFR For Non-African Americans > 60 (> 60)
[2017-04-17] MEDS: levoFLOXacin 500 MG TABLET PO SCH (08:36)
[2017-04-17] MEDS: Metoprolol XL (24 HR) Succ 25 MG TAB.ER.24H PO SCH (08:41)
[2017-04-17] MEDS: (Roflumilast [Daliresp] 500 MCG) PO SCH (08:44)
--- NOTE | 2017-04-17 13:34 | Internal Med Progress Note ---
Date of Encounter: 04/17/17 Time of Encounter: 10:00 - Assessment and plan (1) Acute and chronic respiratory failure ([id number]) Current Visit: No Status: Acute Assessment and plan: -Slow improvement. Continue wean oxygen as able Qualifiers: Respiratory failure complication: hypoxia and hypercapnia Qualified Code(s) : J96.21 - Acute and chronic respiratory failure with hypoxia; J96.22 - Acute and chronic respiratory failure with hypercapnia; J96.22 - Acute and chronic respiratory failure with hypercapnia; J96.22 - Acute and chronic respiratory failure with hypercapnia (2) RSV bronchitis Current Visit: Yes Status: Acute Assessment and plan: Supportive care. Treat exacerbation of COPD. (3) COPD (chronic obstructive pulmonary disease) Current Visit: Yes Status: Acute Assessment and plan: Most likely developed due to acute RSV infection. Currently on abx, aerosols, steroids Adjustments per respiratory Wean steroids Qualifiers: COPD type: COPD with acute exacerbation Qualified Code(s): J44.1 - Chronic obstructive pulmonary disease with (acute) exacerbation (4) Anemia Current Visit: Yes Status: Chronic Assessment and plan: H/H stable today. Continue to follow. Qualifiers: Anemia type: iron deficiency Iron deficiency anemia type: other iron deficiency Qualified Code(s): D50.8 - Other iron deficiency anemias (5) HTN (hypertension) Current Visit: No Status: Chronic Assessment and plan: Essentially controlled Continue meds as ordered.- Qualifiers: Hypertension type: essential hypertension Qualified Code(s): I10 - Essential (primary) hypertension (6) Anxiety Current Visit: No Status: Chronic Assessment and plan: - Continue patient's home regimen of Xanax. (7) Osteoporosis Current Visit: No Status: Chronic Assessment and plan: Chronic issue Qualifiers: Osteoporosis type: age-related Presence of current pathological fracture: without current pathological fracture Qualified Code(s): M81.0 - Age-related osteoporosis without current pathological fracture - Subjective Interval history: Ms Stark is currently admitted for acute exac COPD. She is positive for RSV. She remains moderate to high risk due to potential for worsening respiratory status. Ms. Stark is complaining of a lot of back pain. Says she cannot get comfortable. Wants to take her medicine as she does at home. No fever or chills. Breathing beginning to improve. Less cough today. Still using frequent aerosols. - Constitutional Vitals: Temp Pulse Resp BP Pulse Ox 98.4 F 78 18 144/83 99 04/17/17 11:37 04/17/17 11:37 04/17/17 11:37 04/17/17 11:37 04/17/17 11:37 General appearance: Present: mild distress, A&O X 3, pleasant - Head Head exam: Present: normocephalic - Eye Eye exam: Present: EOMI, conjuntiva pink - ENT ENT exam: Present: mucous membranes moist - Respiratory Respiratory exam: Present: decreased breath sounds, CTAB, prolonged expiratory phase. Absent: rales, rhonchi, wheezes - Cardiovascular Cardiovascular exam: Present: RRR. Absent: tachycardia - GI/Abdominal GI/Abdominal exam: Present: soft. Absent: tenderness - Extremities Exam Extremities exam: Present: warm. Absent: tenderness Additional comments: Significant changes of RA. - Neurological Exam Neurological exam: Present: alert, oriented X3 Internal Medicine: Result - Labs CBC & Chem 7: 04/17/17 06:39 04/17/17 06:39 Labs: Short CBC 04/17/17 Range/Units 06:39 WBC 6.2 (4.3-11.1) K/mcL Hgb 8.5 L (11.5-15.4) g/dL Hct 29.1 L (35.3-44.9) % Plt Count 241 (140-400) K/mcL [facility] 04/17/17 06:39 Sodium 138 Potassium 4.1 Chloride 103 Carbon Dioxide 35 H BUN 10 Creatinine 0.45 L Glucose 128 H Calcium 8.7 - ABG Interpretation ABG results: PT/INR, D-dimer PT 12.2 Seconds (9.4-12.1) H 04/15/17 03:22 - VTE Documentation of Mechanical Device: Intermittent pneumatic compression device Consult Discharge Plan - Plan Referrals: Michael Higginbotham MD [Primary Care Provider] -
[2017-04-17] MEDS: Saline Nasal Spray 44 ML BOTTLE NS PRN (20:06)
[2017-04-17] MEDS: Melatonin 3 MG TABLET PO PRN (22:13)
[2017-04-17] MEDS: Pyridoxine (B-6) 50 MG TABLET PO SCH (22:14)
[2017-04-18] MEDS: Ipratropium/Albuterol Neb 3 ML IH SCH ×6 (00:46→20:59)
[2017-04-18] MEDS: *HR* OxyCODONE Immed Rel 5 MG TABLET PO PRN ×3 (01:06→06:53)
[2017-04-18] MEDS: *HR* OxyCODONE Immed Rel 15 MG TABLET PO PRN ×3 (04:18→20:15)
[2017-04-18] MEDS: ALPRAZolam 1 MG TABLET PO PRN ×3 (04:18→20:14)
[2017-04-18 05:02] LABS: Hematocrit 29.9 % (35.3-44.9); Hemoglobin 8.8 g/dL (11.5-15.4); Mean Corpuscular HGB Conc 29.4 g/dL (31.6-35.5); Mean Corpuscular Hemoglobin 23.5 pg (28.0-33.3); Mean Corpuscular Volume 79.7 fL (83.0-100.0); Platelet Count 259 K/mcL (140-400); Red Blood Count 3.75 M/mcL (3.82-4.97); Red Cell Distribution Width 15.9 % (11.5-14.5)
[2017-04-18 05:23] LABS: BUN/Creatinine Ratio 20 (6-26); Blood Urea Nitrogen 10 mg/dL (6-20); Calcium 8.8 mg/dL (8.6-10.3); Carbon Dioxide 39 mEq/L (23-29); Chloride 99 mEq/L (98-107); Glucose 100 mg/dL (70-105); Osmolality,Calculated 285 (280-300); Potassium 3.8 mEq/L (3.5-5.1); Sodium 138 mEq/L (136-145); eGFR For African Americans > 60 (> 60); eGFR For Non-African Americans > 60 (> 60)
[2017-04-18] MEDS: MethylPREDNISolone 40 MG/ML VIAL IVP SCH ×2 (06:53→18:01)
[2017-04-18] MEDS: *HR* Heparin 5,000 UNIT/ML VIAL SQ SCH ×2 (06:53→18:01)
[2017-04-18] MEDS: Budesonide/Formoterol 160/4.5 MDI IH SCH ×2 (08:00→20:59)
[2017-04-18] MEDS ORDERED: *HR* OxyCODONE Immed Rel 15 MG TABLET PO SCH (09:00)
[2017-04-18] MEDS ORDERED: MOM Conc 10 ML UD.LIQ PO ONE (09:32)
--- NOTE | 2017-04-18 09:36 | Internal Med Progress Note ---
<Mirian Murphy - Last Filed: 04/18/17 13:58> Date of Encounter: 04/18/17 Time of Encounter: 07:45 - Assessment and plan (1) Acute and chronic respiratory failure ([id number]-[id number]) Current Visit: No Status: Acute Assessment and plan: - Progressive dyspnea on admission. - Secondary to COPD exacerbation - CTA chest found emphysema but no acute abnormality. No evidence of PE. - Continue Solu-Medrol, Symbicort, bronchodilators and supplemental oxygen for COPD. - Improves as patient tolerates well with oxygen titrated down from 4.5 L to 3.5 L. - Continue to monitor closely. - Possible discharge home tomorrow with prednisone if patient's respiratory status continues to improve. Qualifiers: Respiratory failure complication: hypoxia and hypercapnia Qualified Code(s) : J96.21 - Acute and chronic respiratory failure with hypoxia; J96.22 - Acute and chronic respiratory failure with hypercapnia; J96.22 - Acute and chronic respiratory failure with hypercapnia; J96.22 - Acute and chronic respiratory failure with hypercapnia (2) Acute exacerbation of chronic obstructive airways disease Current Visit: No Status: Acute Assessment and plan: - Likely precipitated by RSV infection. - CTA chest found emphysema but no acute abnormality. - Continue Solu-Medrol, Symbicort, bronchodilators and supplemental oxygen. (3) Constipation Current Visit: Yes Status: Chronic Assessment and plan: - Reported constipation with no bowel movement for a week. - Likely secondary to narcotic use. - Continue Colace and Miralax. - Give one-time dose of milk of magnesium. Qualifiers: Constipation type: drug induced constipation Qualified Code(s): K59.03 - Drug induced constipation (4) Anemia Current Visit: Yes Status: Chronic Assessment and plan: - Hgb 9.5 on admission but dropped to 8.1 on 04/17/17. - Likely iron deficiency anemia given low iron on iron panel. - Stable as Hgb 8.8 today. - Continue iron supplement. - Continue to monitor. Qualifiers: Anemia type: iron deficiency Iron deficiency anemia type: other iron deficiency Qualified Code(s): D50.8 - Other iron deficiency anemias (5) Anxiety Current Visit: No Status: Chronic Assessment and plan: - Continue patient's home regimen of Xanax. (6) HTN (hypertension) Current Visit: No Status: Chronic Assessment and plan: - BP within normal range most of time. - Continue current antihypertensive regimen. Qualifiers: Hypertension type: essential hypertension Qualified Code(s): I10 - Essential (primary) hypertension (7) DVT prophylaxis Current Visit: No Status: Acute Assessment and plan: - Continue SQ heparin - Subjective Interval history: Patient was seen and examined this morning. Patient reports breathing better compared to yesterday. Patient complains about her chronic back pain and repeatedly insists to be on pain medications as the way she got in [facility] despite of my explanation that it needs to be cautious of pain medication use given her respiratory status. Patient also complains of constipation stating no bowel movement for a week. - Constitutional Vitals: Temp Pulse Resp BP Pulse Ox 98.4 F 91 17 143/97 100 04/18/17 08:13 04/18/17 08:13 04/18/17 08:13 04/18/17 08:13 04/18/17 08:13 General appearance: Present: mild distress, A&O X 3, pleasant - Head Head exam: Present: normal inspection - Eye Eye exam: Present: EOMI, conjuntiva pink, sclera anicteric - Neck Neck exam general surgery: Present: normal inspection, supple, trachea midline - Respiratory Respiratory exam: Present: rhonchi, wheezes. Absent: accessory muscle use - Cardiovascular Cardiovascular exam: Present: RRR, +S1, +S2 - GI/Abdominal GI/Abdominal exam: Present: normal bowel sounds, soft, tenderness (Diffuse) - Extremities Exam Extremities exam: Present: warm. Absent: cyanotic - Neurological Exam Neurological exam: Present: alert. Absent: facial droop, speech deficit - Skin Skin exam: Present: dry, warm Internal Medicine: Result - Labs CBC & Chem 7: 04/18/17 04:00 04/18/17 04:00 Labs: Short CBC 04/18/17 Range/Units 04:00 WBC 5.7 (4.3-11.1) K/mcL Hgb 8.8 L (11.5-15.4) g/dL Hct 29.9 L (35.3-44.9) % Plt Count 259 (140-400) K/mcL BMP 04/18/17 04:00 Sodium 138 Potassium 3.8 Chloride 99 Carbon Dioxide 39 H BUN 10 Creatinine 0.49 L Glucose 100 Calcium 8.8 - ABG Interpretation ABG results: PT/INR, D-dimer PT 12.2 Seconds (9.4-12.1) H 04/15/17 03:22 - VTE Documentation of Mechanical Device: Intermittent pneumatic compression device Consult Discharge Plan - Plan Referrals: Michael Higginbotham MD [Primary Care Provider] - (From [facility]) <Josh Robert - Last Filed: 04/18/17 15:20> Date of Encounter: 04/18/17 - Assessment and plan (1) Acute and chronic respiratory failure (tdyjk-[id number]) Current Visit: No Status: Acute Qualifiers: Respiratory failure complication: hypoxia and hypercapnia Qualified Code(s) : J96.21 - Acute and chronic respiratory failure with hypoxia; J96.22 - Acute and chronic respiratory failure with hypercapnia; J96.22 - Acute and chronic respiratory failure with hypercapnia; J96.22 - Acute and chronic respiratory failure with hypercapnia (2) RSV bronchitis Current Visit: Yes Status: Acute (3) COPD (chronic obstructive pulmonary disease) Current Visit: Yes Status: Acute Qualifiers: COPD type: COPD with acute exacerbation Qualified Code(s): J44.1 - Chronic obstructive pulmonary disease with (acute) exacerbation (4) Anemia Current Visit: Yes Status: Chronic Qualifiers: Anemia type: iron deficiency Iron deficiency anemia type: other iron deficiency Qualified Code(s): D50.8 - Other iron deficiency anemias (5) HTN (hypertension) Current Visit: No Status: Chronic Qualifiers: Hypertension type: essential hypertension Qualified Code(s): I10 - Essential (primary) hypertension (6) Anxiety Current Visit: No Status: Chronic (7) Osteoporosis Current Visit: No Status: Chronic Qualifiers: Osteoporosis type: age-related Presence of current pathological fracture: without current pathological fracture Qualified Code(s): M81.0 - Age-related osteoporosis without current pathological fracture (8) Constipation Current Visit: Yes Status: Chronic Qualifiers: Constipation type: drug induced constipation Qualified Code(s): K59.03 - Drug induced constipation (9) Chronic pain Current Visit: No Status: Chronic Qualifiers: Chronic pain type: chronic pain syndrome Qualified Code(s): G89.4 - Chronic pain syndrome - Constitutional Vitals: Temp Pulse Resp BP Pulse Ox 98.4 F 88 18 148/92 98 04/18/17 10:50 04/18/17 10:50 04/18/17 11:15 04/18/17 10:50 04/18/17 11:15 Internal Medicine: Result - Labs CBC & Chem 7: 04/18/17 04:00 04/18/17 04:00 Labs: Short CBC 04/18/17 Range/Units 04:00 WBC 5.7 (4.3-11.1) K/mcL Hgb 8.8 L (11.5-15.4) g/dL Hct 29.9 L (35.3-44.9) % Plt Count 259 (140-400) K/mcL BMP 04/18/17 04:00 Sodium 138 Potassium 3.8 Chloride 99 Carbon Dioxide 39 H BUN 10 Creatinine 0.49 L Glucose 100 Calcium 8.8 - ABG Interpretation ABG results: PT/INR, D-dimer PT 12.2 Seconds (9.4-12.1) H 04/15/17 03:22 - Attending Attestation I examined this patient and my medical decision-making was reviewed with the Resident Physician on 04/18/17. I agree with the documented findings, disposition and treatment plan as described except to the extent set forth below. Ms Stark is currently admitted for acute exac COPD and RSV infection. She remains moderate to high risk due to potential for worsening respiratory status. Ms Stark is asking for her morning medication. No fever or chills. Less dyspnea today. Still very uncomfortable in bed. Exam Alert. Restless. Mucus membranes dry Heart reg Decreased breath sounds Abd soft I/P 1. COPD 2. Chronic pain Further diagnoses and plan as above.
[2017-04-18] MEDS: levoFLOXacin 500 MG TABLET PO SCH (10:15)
[2017-04-18] MEDS: Metoprolol XL (24 HR) Succ 25 MG TAB.ER.24H PO SCH (10:16)
[2017-04-18] MEDS: *HR* OxyCODONE Immed Rel 15 MG TABLET PO SCH (10:27)
[2017-04-18] MEDS: (Roflumilast [Daliresp] 500 MCG) PO SCH (10:28)
[2017-04-18] MEDS: *HR* OxyCODONE Immed Rel 5 MG TABLET PO SCH (10:28)
[2017-04-18] MEDS: Pyridoxine (B-6) 50 MG TABLET PO SCH (20:14)
[2017-04-19] MEDS: Ipratropium/Albuterol Neb 3 ML IH SCH ×7 (00:09→23:27)
[2017-04-19] MEDS: *HR* OxyCODONE Immed Rel 15 MG TABLET PO PRN ×5 (00:28→22:24)
[2017-04-19] MEDS: *HR* OxyCODONE Immed Rel 5 MG TABLET PO PRN (03:35)
[2017-04-19 03:42] LABS: Hematocrit 31.4 % (35.3-44.9); Hemoglobin 9.1 g/dL (11.5-15.4); Mean Corpuscular Hemoglobin 23.2 pg (28.0-33.3); Mean Corpuscular Volume 80.1 fL (83.0-100.0); Platelet Count 291 K/mcL (140-400); Red Blood Count 3.92 M/mcL (3.82-4.97); Red Cell Distribution Width 15.9 % (11.5-14.5)
[2017-04-19 04:08] LABS: BUN/Creatinine Ratio 20 (6-26); Blood Urea Nitrogen 10 mg/dL (6-20); Carbon Dioxide 40 mEq/L (23-29); Chloride 97 mEq/L (98-107); Glucose 125 mg/dL (70-105); Osmolality,Calculated 285 (280-300); Potassium 4.1 mEq/L (3.5-5.1); Sodium 137 mEq/L (136-145); eGFR For African Americans > 60 (> 60); eGFR For Non-African Americans > 60 (> 60)
[2017-04-19] MEDS: MethylPREDNISolone 40 MG/ML VIAL IVP SCH (05:00)
[2017-04-19] MEDS: *HR* Heparin 5,000 UNIT/ML VIAL SQ SCH ×2 (05:00→17:13)
[2017-04-19] MEDS: ALPRAZolam 1 MG TABLET PO PRN ×2 (06:46→14:58)
[2017-04-19] MEDS: Budesonide/Formoterol 160/4.5 MDI IH SCH ×2 (07:40→20:39)
[2017-04-19] MEDS: levoFLOXacin 500 MG TABLET PO SCH (07:57)
[2017-04-19] MEDS: *HR* OxyCODONE Immed Rel 15 MG TABLET PO SCH (07:57)
[2017-04-19] MEDS: Metoprolol XL (24 HR) Succ 25 MG TAB.ER.24H PO SCH (07:58)
[2017-04-19] MEDS: (Roflumilast [Daliresp] 500 MCG) PO SCH (07:59)
[2017-04-19] MEDS: *HR* OxyCODONE Immed Rel 5 MG TABLET PO SCH (08:08)
--- NOTE | 2017-04-19 08:35 | Discharge Summary ---
<Mirian Murphy - Last Filed: 04/19/17 15:33> Date of Encounter: 04/19/17 Time of Encounter: 07:45 - Discharge Diagnosis (1) Acute and chronic respiratory failure ([id number]) Priority: Primary Status: Acute Qualifiers: Respiratory failure complication: hypoxia and hypercapnia Qualified Code(s) : J96.21 - Acute and chronic respiratory failure with hypoxia; J96.22 - Acute and chronic respiratory failure with hypercapnia; J96.22 - Acute and chronic respiratory failure with hypercapnia; J96.22 - Acute and chronic respiratory failure with hypercapnia (2) Acute exacerbation of chronic obstructive airways disease Priority: Primary Status: Acute (3) Constipation Priority: Secondary Status: Chronic Qualifiers: Constipation type: drug induced constipation Qualified Code(s): K59.03 - Drug induced constipation (4) Anemia Priority: Secondary Status: Chronic Qualifiers: Anemia type: iron deficiency Iron deficiency anemia type: other iron deficiency Qualified Code(s): D50.8 - Other iron deficiency anemias (5) Anxiety Priority: Secondary Status: Chronic (6) HTN (hypertension) Priority: Secondary Status: Chronic Qualifiers: Hypertension type: essential hypertension Qualified Code(s): I10 - Essential (primary) hypertension - Discharge Medications Prescriptions: Oxycodone HCl 15 mg PO Q4HR PRN #12 tablet PRN Reason: Pain Oxycodone HCl [Oxaydo] 5 mg PO Q4HR PRN #12 tablet.orl PRN Reason: Breakthrough Pain ALPRAZolam [Xanax 1 MG Tablet] 1 mg PO TID PRN #9 tablet PRN Reason: Anxiety Esomeprazole Magnesium [Nexium] 40 mg PO DAILY #30 capsule.dr Ferrous Sulfate 325 mg PO BIDWM #60 tablet predniSONE [PredniSONE] See Taper PO DAILY #30 tablet Home Medications: Metoprolol XL (24 HR) Succ [Toprol Xl] 25 mg PO DAILY 01/30/16 [History] Albuterol Sulfate [Ventolin Hfa] 2 puff PO Q6HR PRN 04/14/17 [History] Guaifenesin [Mucinex] 1,200 mg PO BID 04/14/17 [History] Ipratropium/Albuterol Neb [Duoneb] 3 ml IH Q6HR 04/14/17 [History] Montelukast [Singulair] 10 mg PO DAILY 12/28/17 [History] Tiotropium [Spiriva] 18 mcg IH DAILY 04/14/17 [History] Alendronate Sodium [Fosamax] 70 mg PO QWEEK 04/15/17 [History] Budesonide/Formoterol 160/4.5 [Symbicort 160/4.5] 2 puff IH BIDR 04/15/17 [ History] Buspirone HCl [Buspar] 15 mg PO BID 04/15/17 [History] Cholecalciferol (Vitamin D3) [Vitamin D3] 10,000 unit PO 2XW 04/15/17 [History] Denosumab [Prolia (For Outpatient Infusion)] 80 mg SQ Q6M 04/15/17 [History] DiphenhydraMINE [Benadryl] 25 mg PO Q8HR 04/15/17 [History] Lisinopril [Zestril] 5 mg PO DAILY 04/15/17 [History] Melatonin/Pyridoxine HCl (B6) [Melatonin 5 mg Tablet] 5 mg PO HS 04/15/17 [ History] Ondansetron HCl [Zofran] 4 mg PO TID PRN 04/15/17 [History] Polyethylene Glycol 3350 [MiraLAX] 17 gm PO DAILY 04/15/17 [History] Roflumilast [Daliresp] 500 mcg PO DAILY 04/15/17 [History] ALPRAZolam [Xanax 1 MG Tablet] 1 mg PO TID PRN #9 tablet 04/19/17 [Rx] Esomeprazole Magnesium [Nexium] 40 mg PO DAILY #30 capsule. 04/19/17 [Rx] Ferrous Sulfate 325 mg PO BIDWM #60 tablet 04/19/17 [Rx] Oxycodone HCl 15 mg PO Q4HR PRN #12 tablet 04/19/17 [Rx] Oxycodone HCl [Oxaydo] 5 mg PO Q4HR PRN #12 tablet.orl 04/19/17 [Rx] predniSONE [PredniSONE] See Taper PO DAILY #30 tablet 04/19/17 [Rx] Allergies/Adverse Reactions: 3 Allergy/AdvReac Type Severity Reaction Status Date / Time acetaminophen [From Tylenol] Allergy Rash Verified 09/23/15 06:03 chlordiazepoxide Allergy Rash Verified 09/23/15 06:03 [From Librium] Date of admission: 04/14/17 15:28 Primary care physician: Michael Higginbotham MD Consults: 04/14/17 15:34 Consult to Nurse Navigator [CONS] Routine Comment: 04/14/17 15:43 Consult to Law Researcher [CONS] Routine Reason for SW Consult: pt from [facility] for short term rehab. 04/15/17 13:53 Consult to Occupational Therapy [CONS] Routine Comment: Evaluate, develop and implement POC Reason for Consult: Precert to return to ECF Consult to Physical Therapy [CONS] Routine Comment: Evaluate, develop and implement POC Reason for Consult: Precert to return to ECF Discharging clinician: Mirian Murphy Anticipated date of discharge: 04/19/17 - Patient Status Disposition: Transfer SNF Condition: Fair Functional capacity at discharge: bed bound Overall status at discharge: patient is progressing back to baseline - Discharge Instructions Instructions: Respiratory Syncytial Virus (GEN), Chronic Obstructive Pulmonary Disease (DC) Follow Up With: Michael Higginbotham MD [Primary Care Provider] - (From [facility]) Additional Instructions: Please take prescribed prednisone taper: 10 mg tablets - 4 tab daily x 3 days, then 3 tab daily x 3 days, followed by 2 tab daily x 3 days and finally 1 tab daily x 3 days. Please follow up with your primary care physician at [facility] within a week regarding your hospitalization for COPD exacerbation. - Diet and Activity Activity: increase activity as tolerated Diet: diabetic diet, low fat, low cholesterol, low salt diet Hospital course: Ms. Stark is a 57 year old female with PMH of COPD on 4.5L oxygen at home, HTN and RA who presented from [facility] with complaint of worsening shortness of breath associated with productive cough and fever. CTA chest in ED found emphysema but no acute cardiopulmonary abnormality nor evidence of PE. Patient was admitted on 04/14/17 for COPD exacerbation and started on IV Solu-Medrol, Symbicort, levofloxacin and bronchodilators. Patient' s respiratory status gradually improves since admission. On 04/19/16, patient had finished 5-day course of levofloxacin and patient's respiratory status significantly improves as patient maintains good oxygen saturation on 2L NC. Given patient improves clinically and remains hemodynamically stable, patient can be discharged back to SNF once the SNF is ready to take the patient. Patient is instructed to take prescribed prednisone taper: 10 mg tablets - 4 tab daily x 3 days, then 3 tab daily x 3 days, followed by 2 tab daily x 3 days and finally 1 tab daily x 3 days. Patient will need follow-up with her primary care physician at halfway within a week regarding her hospitalization for COPD exacerbation. Patient expressed her understanding and agreement with the discharge plan. All questions were answered. - Time Spent with Patient Total time spent providing and/or coordinating discharge services: Greater than 30 minutes (44 minutes) - Constitutional Vitals: Temp Pulse Resp BP Pulse Ox 97.5 F L 83 16 118/77 99 04/19/17 07:15 04/19/17 07:15 04/19/17 07:39 04/19/17 07:15 04/19/17 07:39 General appearance: Present: A&O X 3, answers questions appropriately - Head Head exam: Present: normal inspection - Eye Eye exam: Present: EOMI, conjuntiva pink, sclera anicteric - Neck Neck exam general surgery: Present: normal inspection, supple, trachea midline - Respiratory Respiratory exam: Present: rhonchi (Diffuse coarse breath sounds, about the same as yesterday). Absent: accessory muscle use, wheezes - Cardiovascular Cardiovascular exam: Present: RRR, +S1, +S2 - GI/Abdominal GI/Abdominal exam: Present: hypoactive bowel sounds, soft, tenderness (Patient complains of diffuse abdominal pain), no peritoneal signs - Extremities Exam Extremities exam: Present: warm. Absent: cyanotic - Neurological Exam Neurological exam: Present: alert. Absent: facial droop, speech deficit - Skin Skin exam: Present: dry, warm - VTE Documentation of Mechanical Device: Intermittent pneumatic compression device <Josh Robert - Last Filed: 04/19/17 17:48> Date of Encounter: 04/19/17 - Discharge Diagnosis (1) Acute and chronic respiratory failure ([id number]) Status: Acute Qualifiers: Respiratory failure complication: hypoxia and hypercapnia Qualified Code(s) : J96.21 - Acute and chronic respiratory failure with hypoxia; J96.22 - Acute and chronic respiratory failure with hypercapnia; J96.22 - Acute and chronic respiratory failure with hypercapnia; J96.22 - Acute and chronic respiratory failure with hypercapnia (2) RSV bronchitis Priority: Primary Status: Acute (3) COPD (chronic obstructive pulmonary disease) Priority: Primary Status: Acute Qualifiers: COPD type: COPD with acute exacerbation Qualified Code(s): J44.1 - Chronic obstructive pulmonary disease with (acute) exacerbation (4) Anemia Status: Chronic Qualifiers: Anemia type: iron deficiency Iron deficiency anemia type: other iron deficiency Qualified Code(s): D50.8 - Other iron deficiency anemias (5) HTN (hypertension) Status: Chronic Qualifiers: Hypertension type: essential hypertension Qualified Code(s): I10 - Essential (primary) hypertension (6) Anxiety Status: Chronic (7) Osteoporosis Priority: Secondary Status: Chronic Qualifiers: Osteoporosis type: age-related Presence of current pathological fracture: without current pathological fracture Qualified Code(s): M81.0 - Age-related osteoporosis without current pathological fracture (8) Constipation Status: Chronic Qualifiers: Constipation type: drug induced constipation Qualified Code(s): K59.03 - Drug induced constipation (9) Chronic pain Status: Chronic Qualifiers: Chronic pain type: chronic pain syndrome Qualified Code(s): G89.4 - Chronic pain syndrome Date of admission: 04/14/17 15:28 Primary care physician: Michael Higginbotham MD Consults: 04/14/17 15:34 Consult to Nurse Navigator [CONS] Routine Comment: 04/14/17 15:43 Consult to Law Researcher [CONS] Routine Reason for SW Consult: pt from [facility] for short term rehab. 04/15/17 13:53 Consult to Occupational Therapy [CONS] Routine Comment: Evaluate, develop and implement POC Reason for Consult: Precert to return to ECF Consult to Physical Therapy [CONS] Routine Comment: Evaluate, develop and implement POC Reason for Consult: Precert to return to ECF Hospital course: Ms. Stark is a 57 year old female - Time Spent with Patient Total time spent providing and/or coordinating discharge services: 38min - Constitutional Vitals: Temp Pulse Resp BP Pulse Ox 97.8 F 99 20 125/80 98 04/19/17 14:47 04/19/17 14:47 04/19/17 14:47 04/19/17 14:47 04/19/17 14:47 - Attending Attestation I examined this patient and my medical decision-making was reviewed with the Resident Physician on 04/19/17. I agree with the documented findings, disposition and treatment plan as described except to the extent set forth below. Ms Stark has been admitted for acute exac COPD and RSV bronchitis. She is now essentially at baseline. She is afebrile with stable vitals and is ready to return to ECF when arranged. Exam Alert. Heart reg Diminished breath sounds Abd soft No edema Changes from RA Plan D/C to ECF when arranged.
[2017-04-19] MEDS ORDERED: acetaZOLAMIDE 250 MG TABLET PO ONE (08:36)
[2017-04-19] MEDS ORDERED: *HR* OxyCODONE Immed Rel 15 MG TABLET PO SCH (09:00)
--- NOTE | 2017-04-19 10:30 | Physician Discharge Referral ---
ExtendedCare Referral Info Transfer To: [facility] (if it's approved) Provider in Charge after Transfer: PCP Institutional Level of Care: Skilled - Diagnosis (1) Acute and chronic respiratory failure ([id number]) Priority: Primary Status: Acute (2) Acute exacerbation of chronic obstructive airways disease Priority: Primary Status: Acute (3) Constipation Priority: Secondary Status: Chronic (4) Anemia Priority: Secondary Status: Chronic (5) Anxiety Priority: Secondary Status: Chronic (6) HTN (hypertension) Priority: Secondary Status: Chronic - Transfer Medications Prescriptions: Oxycodone HCl 15 mg PO Q4HR PRN #12 tablet PRN Reason: Pain Oxycodone HCl [Oxaydo] 5 mg PO Q4HR PRN #12 tablet.orl PRN Reason: Breakthrough Pain ALPRAZolam [Xanax 1 MG Tablet] 1 mg PO TID PRN #9 tablet PRN Reason: Anxiety Esomeprazole Magnesium [Nexium] 40 mg PO DAILY #30 capsule. Ferrous Sulfate 325 mg PO BIDWM #60 tablet predniSONE [PredniSONE] See Taper PO DAILY #30 tablet Home Medications: Metoprolol XL (24 HR) Succ [Toprol Xl] 25 mg PO DAILY 01/30/16 [History] Albuterol Sulfate [Ventolin Hfa] 2 puff PO Q6HR PRN 04/14/17 [History] Guaifenesin [Mucinex] 1,200 mg PO BID 04/14/17 [History] Ipratropium/Albuterol Neb [Duoneb] 3 ml IH Q6HR 04/14/17 [History] Montelukast [Singulair] 10 mg PO DAILY 04/14/17 [History] Tiotropium [Spiriva] 18 mcg IH DAILY 04/14/17 [History] Alendronate Sodium [Fosamax] 70 mg PO QWEEK 04/15/17 [History] Budesonide/Formoterol 160/4.5 [Symbicort 160/4.5] 2 puff IH BIDR 04/15/17 [ History] Buspirone HCl [Buspar] 15 mg PO BID 04/15/17 [History] Cholecalciferol (Vitamin D3) [Vitamin D3] 10,000 unit PO 2XW 04/15/17 [History] Denosumab [Prolia (For Outpatient Infusion)] 80 mg SQ Q6M 12/29/17 [History] DiphenhydraMINE [Benadryl] 25 mg PO Q8HR 04/15/17 [History] Lisinopril [Zestril] 5 mg PO DAILY 04/15/17 [History] Melatonin/Pyridoxine HCl (B6) [Melatonin 5 mg Tablet] 5 mg PO HS 04/15/17 [ History] Ondansetron HCl [Zofran] 4 mg PO TID PRN 04/15/17 [History] Polyethylene Glycol 3350 [MiraLAX] 17 gm PO DAILY 04/15/17 [History] Roflumilast [Daliresp] 500 mcg PO DAILY 04/15/17 [History] ALPRAZolam [Xanax 1 MG Tablet] 1 mg PO TID PRN #9 tablet 04/19/17 [Rx] Esomeprazole Magnesium [Nexium] 40 mg PO DAILY #30 capsule. 04/19/17 [Rx] Ferrous Sulfate 325 mg PO BIDWM #60 tablet 04/19/17 [Rx] Oxycodone HCl 15 mg PO Q4HR PRN #12 tablet 04/19/17 [Rx] Oxycodone HCl [Oxaydo] 5 mg PO Q4HR PRN #12 tablet.orl 04/19/17 [Rx] predniSONE [PredniSONE] See Taper PO DAILY #30 tablet 04/19/17 [Rx] Allergies/Adverse Reactions: 3 Allergy/AdvReac Type Severity Reaction Status Date / Time acetaminophen [From Tylenol] Allergy Rash Verified 09/23/15 06:03 chlordiazepoxide Allergy Rash Verified 09/23/15 06:03 [From Librium] - Respiratory Orders Oxygen / L per min (4L NC) Smoking Cessation: Smoking cessation has been advised. For more information, call the [place] Tobacco Quit Line at 4-133-JGEB-NOW. - Advance Directives Code Status: DNR-Arrest - Mobility Orders Bedrest (Can advance to chair or ambulate based on PT/OT evaluation at [facility]) - Rehabiliation Orders Rehab Potential: Fair Rehab Orders: Evaluation for Physical Therapy, Evaluation for Occupational Therapy - Diet Orders Cardiac CERTIFICATION: I certify that the transfer of the above named patient to an Extended Care Facility is necessary for the continuing treatment of the diagnosis listed. The above information is true and accurate reflection of patient's current condition. Confidential - Redisclosure prohibited without a patient's written consent.
[2017-04-19] MEDS: Mag Hydrox/Al Hydrox/Simeth 30 ML UDC PO PRN (14:57)
[2017-04-19] MEDS: predniSONE 20 MG TABLET PO SCH (17:13)
[2017-04-19] MEDS: Pyridoxine (B-6) 50 MG TABLET PO SCH (19:28)
[2017-04-20] MEDS: *HR* OxyCODONE Immed Rel 15 MG TABLET PO PRN ×3 (02:22→11:16)
[2017-04-20] MEDS: ALPRAZolam 1 MG TABLET PO PRN ×2 (02:22→14:55)
[2017-04-20] MEDS: Ipratropium/Albuterol Neb 3 ML IH SCH ×2 (04:07→07:28)
[2017-04-20] MEDS: *HR* Heparin 5,000 UNIT/ML VIAL SQ SCH (06:31)
[2017-04-20] MEDS: Budesonide/Formoterol 160/4.5 MDI IH SCH (07:28)
[2017-04-20] MEDS: levoFLOXacin 500 MG TABLET PO SCH (08:34)
[2017-04-20] MEDS: *HR* OxyCODONE Immed Rel 15 MG TABLET PO SCH ×2 (08:34→16:06)
[2017-04-20] MEDS: predniSONE 20 MG TABLET PO SCH (08:34)
[2017-04-20] MEDS: Metoprolol XL (24 HR) Succ 25 MG TAB.ER.24H PO SCH (08:35)
[2017-04-20] MEDS: *HR* OxyCODONE Immed Rel 5 MG TABLET PO SCH (08:35)
[2017-04-20 08:45] LABS: Hematocrit 32.9 % (35.3-44.9); Hemoglobin 9.7 g/dL (11.5-15.4); Mean Corpuscular HGB Conc 29.5 g/dL (31.6-35.5); Mean Corpuscular Hemoglobin 23.6 pg (28.0-33.3); Mean Platelet Volume 8.9 fL (9.4-12.4); Platelet Count 347 K/mcL (140-400); Red Blood Count 4.11 M/mcL (3.82-4.97); Red Cell Distribution Width 16.4 % (11.5-14.5)
--- NOTE | 2017-04-20 09:03 | Internal Med Progress Note ---
<Mirian Murphy - Last Filed: 04/20/17 09:47> Date of Encounter: 04/20/17 Time of Encounter: 08:45 - Assessment and plan (1) Acute and chronic respiratory failure ([id number]) Current Visit: No Status: Acute Assessment and plan: - Progressive dyspnea on admission. - Secondary to COPD exacerbation - CTA chest found emphysema but no acute abnormality. No evidence of PE. - Continue steroid, Symbicort, bronchodilators and supplemental oxygen for COPD. - Improves as patient maintains good oxygenation on 4L NC. - Patient will be discharged to SNF with prescribed prednisone taper once the SNF can take the patient. Please see discharge summary from 04/19/17 for further detail regarding the discharge. Qualifiers: Respiratory failure complication: hypoxia and hypercapnia Qualified Code(s) : J96.21 - Acute and chronic respiratory failure with hypoxia; J96.22 - Acute and chronic respiratory failure with hypercapnia; J96.22 - Acute and chronic respiratory failure with hypercapnia; J96.22 - Acute and chronic respiratory failure with hypercapnia (2) Acute exacerbation of chronic obstructive airways disease Current Visit: No Status: Acute Assessment and plan: - Likely precipitated by RSV infection. - CTA chest found emphysema but no acute abnormality. - Continue prednisone, Symbicort, bronchodilators and supplemental oxygen. (3) Constipation Current Visit: Yes Status: Chronic Assessment and plan: - Reported constipation with no bowel movement for more than a week. - Likely secondary to narcotic use. - Continue Colace and Miralax. - Give one-time dose of milk and molasses enema. Qualifiers: Constipation type: drug induced constipation Qualified Code(s): K59.03 - Drug induced constipation (4) Anemia Current Visit: Yes Status: Chronic Assessment and plan: - Hgb 9.5 on admission but dropped to 8.1 on 04/17/17. - Likely iron deficiency anemia given low iron on iron panel. - Improves as Hgb 9.7 today. - Continue iron supplement. - Continue to monitor. Qualifiers: Anemia type: iron deficiency Iron deficiency anemia type: other iron deficiency Qualified Code(s): D50.8 - Other iron deficiency anemias (5) Anxiety Current Visit: No Status: Chronic Assessment and plan: - Continue patient's home regimen of Xanax. (6) HTN (hypertension) Current Visit: No Status: Chronic Assessment and plan: - BP was noted to be borderline low (97/68). Okay to hold lisinopril this morning. Qualifiers: Hypertension type: essential hypertension Qualified Code(s): I10 - Essential (primary) hypertension (7) DVT prophylaxis Current Visit: No Status: Acute Assessment and plan: - Continue SQ heparin - Subjective Interval history: Patient was seen and examined this morning. Patient reports breathing well. Patient still complains of no bowel movement and is willing to try enema for her constipation. Patient is aware of pending placement to SNF and expressed agreement with the discharge plan. - Constitutional Vitals: Temp Pulse Resp BP Pulse Ox 97.9 F 83 16 97/68 99 04/20/17 07:25 04/20/17 07:25 04/20/17 07:28 04/20/17 07:25 04/20/17 07:28 General appearance: Present: A&O X 3, no acute distress, answers questions appropriately - Head Head exam: Present: normal inspection - Eye Eye exam: Present: EOMI, conjuntiva pink, sclera anicteric - Neck Neck exam general surgery: Present: normal inspection, supple, trachea midline - Respiratory Respiratory exam: Present: rhonchi (Course breath sounds), wheezes (few). Absent: accessory muscle use - Cardiovascular Cardiovascular exam: Present: RRR, +S1, +S2 - GI/Abdominal GI/Abdominal exam: Present: normal bowel sounds, soft, no peritoneal signs - Extremities Exam Extremities exam: Present: warm. Absent: cyanotic - Neurological Exam Neurological exam: Present: alert. Absent: facial droop, speech deficit - Skin Skin exam: Present: dry, warm Internal Medicine: Result - Labs CBC & Chem 7: 04/20/17 08:10 04/20/17 08:10 Labs: Short CBC 04/20/17 Range/Units 08:10 WBC 9.3 (4.3-11.1) K/mcL Hgb 9.7 L (11.5-15.4) g/dL Hct 32.9 L (35.3-44.9) % Plt Count 347 (140-400) K/mcL - ABG Interpretation ABG results: PT/INR, D-dimer PT 12.2 Seconds (9.4-12.1) H 04/15/17 03:22 - VTE Documentation of Mechanical Device: Intermittent pneumatic compression device Consult Discharge Plan - Plan Instructions: Respiratory Syncytial Virus (GEN), Chronic Obstructive Pulmonary Disease (DC) Additional Instructions: Please take prescribed prednisone taper: 10 mg tablets - 4 tab daily x 3 days, then 3 tab daily x 3 days, followed by 2 tab daily x 3 days and finally 1 tab daily x 3 days. Please follow up with your primary care physician at [facility] within a week regarding your hospitalization for COPD exacerbation. Referrals: Michael Higginbotham MD [Primary Care Provider] - (From [facility]) Prescriptions: Oxycodone HCl 15 mg PO Q4HR PRN #12 tablet PRN Reason: Pain Oxycodone HCl [Oxaydo] 5 mg PO Q4HR PRN #12 tablet.orl PRN Reason: Breakthrough Pain ALPRAZolam [Xanax 1 MG Tablet] 1 mg PO TID PRN #9 tablet PRN Reason: Anxiety Esomeprazole Magnesium [Nexium] 40 mg PO DAILY #30 capsule. Ferrous Sulfate 325 mg PO BIDWM #60 tablet predniSONE [PredniSONE] See Taper PO DAILY #30 tablet <Josh Robert - Last Filed: 04/20/17 16:49> Date of Encounter: 04/20/17 - Assessment and plan (1) Acute and chronic respiratory failure (ljkrq-[id number]) Current Visit: No Status: Acute Qualifiers: Respiratory failure complication: hypoxia and hypercapnia Qualified Code(s) : J96.21 - Acute and chronic respiratory failure with hypoxia; J96.22 - Acute and chronic respiratory failure with hypercapnia; J96.22 - Acute and chronic respiratory failure with hypercapnia; J96.22 - Acute and chronic respiratory failure with hypercapnia (2) RSV bronchitis Current Visit: Yes Status: Acute (3) COPD (chronic obstructive pulmonary disease) Current Visit: Yes Status: Acute Qualifiers: COPD type: COPD with acute exacerbation Qualified Code(s): J44.1 - Chronic obstructive pulmonary disease with (acute) exacerbation (4) Anemia Current Visit: Yes Status: Chronic Qualifiers: Anemia type: iron deficiency Iron deficiency anemia type: other iron deficiency Qualified Code(s): D50.8 - Other iron deficiency anemias (5) HTN (hypertension) Current Visit: No Status: Chronic Qualifiers: Hypertension type: essential hypertension Qualified Code(s): I10 - Essential (primary) hypertension (6) Anxiety Current Visit: No Status: Chronic (7) Osteoporosis Current Visit: No Status: Chronic Qualifiers: Osteoporosis type: age-related Presence of current pathological fracture: without current pathological fracture Qualified Code(s): M81.0 - Age-related osteoporosis without current pathological fracture (8) Constipation Current Visit: Yes Status: Chronic Qualifiers: Constipation type: drug induced constipation Qualified Code(s): K59.03 - Drug induced constipation (9) Chronic pain Current Visit: No Status: Chronic Qualifiers: Chronic pain type: chronic pain syndrome Qualified Code(s): G89.4 - Chronic pain syndrome - Constitutional Vitals: Temp Pulse Resp BP Pulse Ox 98.5 F 106 16 115/79 96 04/20/17 16:20 04/20/17 16:20 04/20/17 16:20 04/20/17 16:20 04/20/17 16:20 Internal Medicine: Result - Labs CBC & Chem 7: 04/20/17 08:10 04/20/17 08:10 Labs: Short CBC 04/20/17 Range/Units 08:10 WBC 9.3 (4.3-11.1) K/mcL Hgb 9.7 L (11.5-15.4) g/dL Hct 32.9 L (35.3-44.9) % Plt Count 347 (140-400) K/mcL BMP 04/20/17 08:10 Sodium 135 L Potassium 3.5 Chloride 100 Carbon Dioxide 32 H BUN 10 Creatinine 0.53 L Glucose 91 Calcium 8.9 - ABG Interpretation ABG results: PT/INR, D-dimer PT 12.2 Seconds (9.4-12.1) H 04/15/17 03:22 - Attending Attestation I examined this patient and my medical decision-making was reviewed with the Resident Physician on 04/20/17. I agree with the documented findings, disposition and treatment plan as described except to the extent set forth below. Ms Stark is currently admitted for acute exac COPD and is awaiting precert for SNF. She remains moderate risk for potential worsening respiratory status. Ms Stark is doing OK. She is awaiting precet. BP was somewhat low this AM so meds held. Exam Alert. Comfortable Mucus membranes dry Heart reg Diminished breath sounds I/P 1. COPD 2. Hypoxia Further diagnoses and plan as above D/C when precert obtained.
[2017-04-20 09:07] LABS: BUN/Creatinine Ratio 19 (6-26); Blood Urea Nitrogen 10 mg/dL (6-20); Calcium 8.9 mg/dL (8.6-10.3); Carbon Dioxide 32 mEq/L (23-29); Chloride 100 mEq/L (98-107); Glucose 91 mg/dL (70-105); Osmolality,Calculated 279 (280-300); Potassium 3.5 mEq/L (3.5-5.1); Sodium 135 mEq/L (136-145); eGFR For African Americans > 60 (> 60); eGFR For Non-African Americans > 60 (> 60)
[2017-04-20] MEDS ORDERED: Milk and Molasses Enema 200 ML RC ONE (09:50)
[2017-04-20] MEDS: Albuterol 2.5 MG/3 ML NEBULIZER IH SCH ×2 (11:40→15:22)
[2017-04-20 16:21] VITALS: BP 115/79
== END 2017-04-20 17:21 | DRG 140 ==
LOC: EMEROO 10:31 → 2ANU 10:31 → SUATTDRO 15:28
PROVIDERS: ADMIT Internal Medicine Nephrology; ATTEND Internal Medicine

== ENCOUNTER 2017-04-28 17:04 | Inpatient (IN) ==
[2017-04-28] MEDS ORDERED: Ipratropium/Albuterol Neb 3 ML IH ONE (17:08)
[2017-04-28] MEDS ORDERED: methylPREDNISolone 125 MG/2 ML VIAL IVP ONE (17:08)
[2017-04-28] MEDS ORDERED: Aspirin 81 MG TAB.CHEW PO STA (17:08)
[2017-04-28] MEDS ORDERED: 0.9 % Sodium Chloride 1,000 ML IVC ONE ×2 (17:27→20:24)
[2017-04-28] MEDS ORDERED: Naloxone 0.4 MG/ML INJ ONE (17:31)
[2017-04-28 17:45] LABS: ABG Base Excess 8 mEq/L (-2 to 3); ABG HCO3 38 mEq/L (21-27); ABG Oxygen Saturation 86 % (95-98); ABG PCO2 76 mmHg (35-45); ABG PO2 60 mmHg (85-104); ABG TCO2 40 mEq/L (20-26); Blood Gas Modality PRVC/PS
[2017-04-28 17:52] LABS: Mean Corpuscular Volume 84.1 fL (83.0-100.0)
[2017-04-28 17:54] LABS: Hematocrit 39.6 % (35.3-44.9); Hemoglobin 11.5 g/dL (11.5-15.4); Mean Corpuscular Hemoglobin 24.4 pg (28.0-33.3); Mean Platelet Volume 8.7 fL (9.4-12.4); Platelet Count 383 K/mcL (140-400); Red Blood Count 4.71 M/mcL (3.82-4.97); Red Cell Distribution Width 18.8 % (11.5-14.5)
[2017-04-28 18:03] LABS: Prothrombin Time 11.2 Seconds (9.4-12.1)
[2017-04-28 18:06] LABS: Activated Partial Thrombo Time 28.4 Seconds (26.0-36.0)
[2017-04-28 18:08] LABS: BUN/Creatinine Ratio 10 (6-26); Blood Urea Nitrogen 5 mg/dL (6-20); Calcium 8.5 mg/dL (8.6-10.3); Carbon Dioxide 35 mEq/L (23-29); Chloride 93 mEq/L (98-107); Creatine Kinase 13 Units/L (30-223); Glucose 108 mg/dL (70-105); Osmolality,Calculated 274 (280-300); Potassium 3.1 mEq/L (3.5-5.1); Sodium 133 mEq/L (136-145); eGFR For African Americans > 60 (> 60); eGFR For Non-African Americans > 60 (> 60)
[2017-04-28] MEDS ORDERED: Levofloxacin 750 MG/150 ML 750 MG/150 ML BAG IVPB ONE (18:13)
[2017-04-28] MEDS ORDERED: Vancomycin 1,750 MG in D5% in Water 500 ML IVPB STA (18:13)
[2017-04-28] MEDS ORDERED: Piperacillin/Tazobactam 4.5 GM in Water for inj. (sterile) 20 ML IVP ONE (18:13)
[2017-04-28] MEDS ORDERED: Piperacillin/Tazobactam 3.375 GM in Water for inj. (sterile) 20 ML 20 ML IVP ONE (18:24)
[2017-04-28] MEDS ORDERED: Vancomycin 1,250 MG in D5% in Water 250 ML IVPB ONE (18:25)
--- NOTE | 2017-04-28 18:30 | Emergency Department Note ---
Disposition Clinical Impression: Pneumonia Qualifiers: Pneumonia type: due to unspecified organism Laterality: left Lung location: lower lobe of lung Qualified Code(s): J18.1 - Lobar pneumonia, unspecified organism Sepsis Qualifiers: Sepsis type: sepsis due to unspecified organism Qualified Code(s): A41.9 - Sepsis, unspecified organism Hypercapnic respiratory failure Qualifiers: Chronicity: acute on chronic Qualified Code(s): J96.22 - Acute and chronic respiratory failure with hypercapnia COPD (chronic obstructive pulmonary disease) Qualifiers: COPD type: unspecified COPD Qualified Code(s): J44.9 - Chronic obstructive pulmonary disease, unspecified Disposition: Admitted As Inpatient Condition: Fair Time of Disposition: 19:42 General Adult HPI - General Chief complaint: ED Shortness of Breath/Dyspnea Stated complaint: SOB Time Seen by Provider: 04/28/17 17:06 Source: EMS Mode of arrival: EMS Limitations: no limitations Nursing Notes Reviewed: Yes Vital Signs Reviewed: Yes - History of Present Illness HPI Narrative: Patient is a 57-year-old female with a past medical history of COPD oxygen dependent, hypertension, RA, back surgery, and anxiety is presenting from a intermediate facility by squad after being found be hypoxic at 70%. The patient was immediately placed on BiPAP on arrival. The patient's family members at bedside and she had just arrived to the emergency department she states that the patient lives at the intermediate facility in which she receives daily breathing treatments, daily steroid, anxiety medication, and also pain medication around the clock. The family member states that the patient is usually alert and oriented 3, however she states that she has a triple education and that she is bedridden for the most parts and only uses a wheelchair to go to physical therapy appointments otherwise. She states that the patient was recently discharged from the hospital after being admitted for RSV and COPD. She states that she saw the patient this morning and before leaving this morning the patient was doing well on her at home oxygen and she appeared at her baseline and this afternoon she received a call from the nursing facility which they alerted her of the patient's hypoxia and recommended that she go to the emergency department for further evaluation and treatment. Pain Scale: 4 - Related Data Home Medications Medication Instructions Recorded Confirmed Metoprolol XL (24 HR) Succ [Toprol 25 mg PO DAILY 01/30/16 04/29/17 Xl] Albuterol Sulfate [Ventolin Hfa] 2 puff PO Q6HR PRN 04/14/17 04/29/17 Guaifenesin [Mucinex] 1,200 mg PO BID 04/14/17 04/29/17 Ipratropium/Albuterol Neb [Duoneb] 3 ml IH Q6HR 04/14/17 04/29/17 Montelukast [Singulair] 10 mg PO DAILY 04/14/17 04/29/17 Tiotropium [Spiriva] 18 mcg IH DAILY 04/14/17 04/29/17 Alendronate Sodium [Fosamax] 70 mg PO QWEEK 04/15/17 04/29/17 Budesonide/Formoterol 160/4.5 2 puff IH BIDR 04/15/17 04/29/17 [Symbicort 160/4.5] Buspirone HCl [Buspar] 15 mg PO BID 04/15/17 04/29/17 Cholecalciferol (Vitamin D3) 10,000 unit PO 2XW 04/15/17 04/29/17 [Vitamin D3] Denosumab [Prolia (For Outpatient 80 mg SQ Q6M 04/15/17 04/29/17 Infusion)] DiphenhydraMINE [Benadryl] 25 mg PO Q8HR PRN 04/15/17 04/29/17 Lisinopril [Zestril] 5 mg PO DAILY 04/15/17 04/29/17 Melatonin/Pyridoxine HCl (B6) 5 mg PO HS 04/15/17 04/29/17 [Melatonin 5 mg Tablet] Ondansetron HCl [Zofran] 4 mg PO TID PRN 04/15/17 04/29/17 Polyethylene Glycol 3350 [MiraLAX] 17 gm PO DAILY 04/15/17 04/29/17 Roflumilast [Daliresp] 500 mcg PO DAILY 04/15/17 04/29/17 Previous Rx's Medication Instructions Recorded Esomeprazole Magnesium [Nexium] 40 mg PO DAILY #30 capsule. 04/19/17 Ferrous Sulfate 325 mg PO BIDWM #60 tablet 04/19/17 Oxycodone HCl [Oxaydo] 5 mg PO Q4HR PRN #12 tablet.orl 04/19/17 Amoxicillin/Clavulanate [Augmentin] 500 mg PO BIDWM 10 Days #20 tablet 05/02/17 Levofloxacin [Levaquin] 750 mg PO DAILY #4 tablet 05/02/17 Oxycodone HCl [Oxaydo] 5 mg PO Q4HR PRN #10 tab 05/02/17 predniSONE [PredniSONE] See Taper PO DAILY #20 tablet 05/02/17 Allergies Allergy/AdvReac Type Severity Reaction Status Date / Time acetaminophen [From Tylenol] Allergy Rash Verified 09/23/15 06:03 chlordiazepoxide Allergy Rash Verified 09/23/15 06:03 [From Librium] Limitations: ROS unobtainable due to patients medical condition Past Medical History - Past Medical History Medical history: Reports: COPD, hypertension, RA Surgical history: Reports: non-contributory Psychiatric history: Reports: anxiety LOGISTICS VICE PRESIDENT history: Reports: no LOGISTICS VICE PRESIDENT history - Social History Smoking Status: Former smoker Smokeless Tobacco Status: No Alcohol use: Reports: none Drug use: Reports: none Physical Exam - General Limitations: altered mental status General appearance: lethargic - Head Head exam: atraumatic, normocephalic, normal inspection - Eye Eye exam: Present: normal appearance, PERRL, miosis - ENT ENT exam: normal exam, mucous membranes dry - Neck Neck exam: Present: normal inspection, full ROM, trachea midline. Absent: lymphadenopathy - Chest Chest inspection: Present: symmetric chest wall rise - Respiratory Respiratory exam: Present: respiratory distress - Cardiovascular Cardiovascular exam: Present: tachycardia, normal heart sounds, +S1, +S2 - Abdominal Exam Abdominal exam: Present: soft, normal bowel sounds - Extremities Exam Extremities exam: Present: normal inspection, full ROM, normal capillary refill. Absent: pedal edema - Expanded Lower Extremity Exam Neurovascular/Tendon exam: Present: normal capillary refill. Absent: pulse deficit, motor deficit - Neurological Exam Neurological exam: Present: other (altered mental status) - Skin Skin exam: Present: warm, dry, intact, pallor Course Course Narrative: Review of patient's records she was recently discharged from the hospital 8 days ago in which she was admitted for COPD exacerbation which she was prescribed a prednisone taper. They believe the exacerbation was likely precipitated by an RSV infection in her CTA of her chest at that time found emphysema but no acute abnormality otherwise. She is also seen for constipation which she is given enemas and MiraLAX for as well as anemia with a hemoglobin of 9.7 attributed to iron deficiency. When patient was discharge her blood pressure was 97/68. Patient's presentation today is septic in appearance she is currently on BiPAP to help with her hypoxia which he was originally brought to the emergency department for by marisa. Plans to sepsis workup of the patient will also do a CT of the patient's chest and abdomen to rule out any etiology for the sepsis the patient's current state. We will start the patient on empiric antibiotics for age Pneumonia with a recent admission living at a intermediate facility. Patient is tolerating the BiPAP well. The patient initially came in she was given Narcan due to her history of having pain medications around the clock and there was minimal response. The patient is currently altered due to her hyper cardia or could be due to sepsis. - Reevaluation(s) Reevaluation #1: The plan is to admit the patient for sepsis secondary to pneumonia and for acute respiratory failure with known history of COPD. Patient has a leukocytosis of 43,000 with a bandemia and her CT scan shows a consolidation in the left lower lobe concerning for pneumonia. Patients urine was negative. The patient has been on BiPAP and has been tolerating this well. Her initial ABG showed a pH of 7.3 after being on BiPAP patients pH has improved to 7.33 the patients PCO2 is improved from 76-62. She has been tolerating BiPAP well. Patients head CT and abdominal and pelvis CT were both negative. Due to the findings on the chest CT of pneumonia the patient was started empirically on antibiotics which include Levaquin, Zosyn and vancomycin to cover for age. The patients vital signs although hypotensive in the 90s over 60s and heart rate tachycardia have been stable since she has been here and she is received 2 L of fluids. I discussed these details with the hospitalist equipment application specialist, Dr. Wilson, and she agrees to accept the patient. Time: 23:54 Vital Signs Temperature 97.6 F 04/28/17 17:11 Pulse Rate 113 04/28/17 17:11 Respiratory Rate 28 04/28/17 17:11 Blood Pressure 91/69 04/28/17 17:11 O2 Sat by Pulse Oximetry 92 04/28/17 17:11 Temperature 98.2 F 05/02/17 11:56 Pulse Rate 95 05/02/17 11:56 Respiratory Rate 14 05/02/17 11:56 Blood Pressure 135/84 05/02/17 11:56 O2 Sat by Pulse Oximetry 96 05/02/17 11:56 Oxygen Delivery Oxygen Delivery Bipap Medical Decision Making - Medical Records Medical records reviewed: Yes I reviewed the patient's medical records. - Lab Data Lab results reviewed: Yes I reviewed the patient's lab results. Result diagrams: 05/02/17 04:11 05/02/17 04:11 Lab Results 04/28/17 04/28/17 04/28/17 Range/Units 17:37 17:41 17:41 WBC 43.0 H* (4.3-11.1) K/mcL RBC 4.71 (3.82-4.97) M/mcL Hgb 11.5 (11.5-15.4) g/dL Hct 39.6 (35.3-44.9) % MCV 84.1 (83.0-100.0) fL MCH 24.4 L (28.0-33.3) pg MCHC 29.0 L (31.6-35.5) g/dL RDW 18.8 H (11.5-14.5) % Plt Count 383 (140-400) K/mcL MPV 8.7 L (9.4-12.4) fL Seg Neutrophils % 52.0 % Band Neutrophils % 26.0 H (0-4) % Lymphocytes % 8.0 % Monocytes % 14.0 % Neutrophils # 33.5 H (1.6-8.9) K/mcL Lymphocytes # 3.4 (0.6-4.6) K/mcL Monocytes # 6.0 H (0.0-1.3) K/mcL Platelet Estimate Normal (Normal) PT 11.2 (9.4-12.1) Seconds INR 1.0 APTT 28.4 (26.0-36.0) Seconds Sample Site ABG pH 7.30 L (7.32-7.45) pH Units ABG pCO2 76 H* (35-45) mmHg ABG pO2 60 L (85-104) mmHg ABG HCO3 38 H (21-27) mEq/L ABG Total CO2 40 H (20-26) mEq/L ABG O2 Saturation 86 L (95-98) % ABG Base Excess 8 H (-2 to 3) mEq/L O2 Delivery Device NRB Blood Gas Modality PRVC/PS Inspired O2 100.0 (1-15=lpm [id number]=%) Sodium (136-145) mEq/L Potassium (3.5-5.1) mEq/L Chloride (98-107) mEq/L Carbon Dioxide (23-29) mEq/L BUN (6-20) mg/dL Creatinine (0.60-1.20) mg/dL Est GFR ( Amer) (> 60) Est GFR (Non-Af Amer) (> 60) BUN/Creatinine Ratio (6-26) Glucose (70-105) mg/dL Calculated Osmolality (280-300) Lactic Acid (0.5-2.2) mmol/L Calcium (8.6-10.3) mg/dL Creatine Kinase (30-223) Units/L Troponin I (< 0.04) ng/mL B-Natriuretic Peptide (Less than 100) pg/mL Urine Color (Yellow) Urine Clarity (Clear) Urine pH (5.0-8.0) pH Units Ur Specific [place] (1.010-1.025) Urine Protein (Neg-Trace) mg/dL Urine Glucose (UA) (Normal) mg/dL Urine Ketones (Negative) mg/dL Urine Blood (Negative) Urine Nitrite (Negative) Urine Bilirubin (Negative) Urine Urobilinogen (Normal) mg/dL Ur Leukocyte Esterase (Negative) Ur Culture Indicated? (NO) 04/28/17 04/28/17 04/28/17 Range/Units 17:41 17:41 17:41 WBC (4.3-11.1) K/mcL RBC (3.82-4.97) M/mcL Hgb (11.5-15.4) g/dL Hct (35.3-44.9) % MCV (83.0-100.0) fL MCH (28.0-33.3) pg MCHC (31.6-35.5) g/dL RDW (11.5-14.5) % Plt Count (140-400) K/mcL MPV (9.4-12.4) fL Seg Neutrophils % % Band Neutrophils % (0-4) % Lymphocytes % % Monocytes % % Neutrophils # (1.6-8.9) K/mcL Lymphocytes # (0.6-4.6) K/mcL Monocytes # (0.0-1.3) K/mcL Platelet Estimate (Normal) PT (9.4-12.1) Seconds INR APTT (26.0-36.0) Seconds Sample Site ABG pH (7.32-7.45) pH Units ABG pCO2 (35-45) mmHg ABG pO2 (85-104) mmHg ABG HCO3 (21-27) mEq/L ABG Total CO2 (20-26) mEq/L ABG O2 Saturation (95-98) % ABG Base Excess (-2 to 3) mEq/L O2 Delivery Device Blood Gas Modality Inspired O2 (1-15=lpm [id number]=%) Sodium 133 L (136-145) mEq/L Potassium 3.1 L (3.5-5.1) mEq/L Chloride 93 L (98-107) mEq/L Carbon Dioxide 35 H (23-29) mEq/L BUN 5 L (6-20) mg/dL Creatinine 0.48 L (0.60-1.20) mg/dL Est GFR ( Amer) > 60 (> 60) Est GFR (Non-Af Amer) > 60 (> 60) BUN/Creatinine Ratio 10 (6-26) Glucose 108 H (70-105) mg/dL Calculated Osmolality 274 L (280-300) Lactic Acid 2.1 (0.5-2.2) mmol/L Calcium 8.5 L (8.6-10.3) mg/dL Creatine Kinase 13 L (30-223) Units/L Troponin I < 0.03 (< 0.04) ng/mL B-Natriuretic Peptide (Less than 100) pg/mL Urine Color (Yellow) Urine Clarity (Clear) Urine pH (5.0-8.0) pH Units Ur Specific [place] (1.010-1.025) Urine Protein (Neg-Trace) mg/dL Urine Glucose (UA) (Normal) mg/dL Urine Ketones (Negative) mg/dL Urine Blood (Negative) Urine Nitrite (Negative) Urine Bilirubin (Negative) Urine Urobilinogen (Normal) mg/dL Ur Leukocyte Esterase (Negative) Ur Culture Indicated? (NO) 04/28/17 04/28/17 04/28/17 Range/Units 17:41 18:25 19:45 WBC (4.3-11.1) K/mcL RBC (3.82-4.97) M/mcL Hgb (11.5-15.4) g/dL Hct (35.3-44.9) % MCV (83.0-100.0) fL MCH (28.0-33.3) pg MCHC (31.6-35.5) g/dL RDW (11.5-14.5) % Plt Count (140-400) K/mcL MPV (9.4-12.4) fL Seg Neutrophils % % Band Neutrophils % (0-4) % Lymphocytes % % Monocytes % % Neutrophils # (1.6-8.9) K/mcL Lymphocytes # (0.6-4.6) K/mcL Monocytes # (0.0-1.3) K/mcL Platelet Estimate (Normal) PT (9.4-12.1) Seconds INR APTT (26.0-36.0) Seconds Sample Site R Brach ABG pH 7.33 (7.32-7.45) pH Units ABG pCO2 62 H (35-45) mmHg ABG pO2 61 L (85-104) mmHg ABG HCO3 33 H (21-27) mEq/L ABG Total CO2 35 H (20-26) mEq/L ABG O2 Saturation 88 L (95-98) % ABG Base Excess 5 H (-2 to 3) mEq/L O2 Delivery Device BiPAP Blood Gas Modality NIV Inspired O2 50.0 (1-15=lpm [id number]=%) Sodium (136-145) mEq/L Potassium (3.5-5.1) mEq/L Chloride (98-107) mEq/L Carbon Dioxide (23-29) mEq/L BUN (6-20) mg/dL Creatinine (0.60-1.20) mg/dL Est GFR ( Amer) (> 60) Est GFR (Non-Af Amer) (> 60) BUN/Creatinine Ratio (6-26) Glucose (70-105) mg/dL Calculated Osmolality (280-300) Lactic Acid (0.5-2.2) mmol/L Calcium (8.6-10.3) mg/dL Creatine Kinase (30-223) Units/L Troponin I (< 0.04) ng/mL B-Natriuretic Peptide 261 H (Less than 100) pg/mL Urine Color Yellow (Yellow) Urine Clarity Clear (Clear) Urine pH 7.5 (5.0-8.0) pH Units Ur Specific [place] 1.011 (1.010-1.025) Urine Protein Negative (Neg-Trace) mg/dL Urine Glucose (UA) Normal (Normal) mg/dL Urine Ketones Negative (Negative) mg/dL Urine Blood Negative (Negative) Urine Nitrite Negative (Negative) Urine Bilirubin Negative (Negative) Urine Urobilinogen Normal (Normal) mg/dL Ur Leukocyte Esterase Negative (Negative) Ur Culture Indicated? NO (NO) - Radiology Data Radiology results reviewed: Yes I reviewed the patient's radiology results. Chest X-Ray 04/28/17 17:07 IMPRESSION: Limited series. Suspected vascular congestion and interstitial pulmonary edema. Left basilar consolidation, atelectasis/effusion considered. Superimposed pneumonia is a possibility as well. D/ / Jese aKhn MD / Jese Kahn MD Interpreting Provider: Jese Kahn MD Abdomen/Pelvis CT 04/28/17 17:27 IMPRESSION: Striated appearing nephrograms possibly representing pyelonephritis. Clinically correlate. D/ / Norm Kirk MD / Norm Kirk MD Interpreting Provider: Norm Kirk MD Chest CTA 04/28/17 17:27 IMPRESSION: No PE identified. Infiltrates and large consolidation within the left lung. Mild pulmonary emphysema. D/ / Norm Kirk MD / Norm Kirk MD Interpreting Provider: Norm Kirk MD Head CT 04/28/17 17:27 IMPRESSION: No acute intracranial abnormality. D/ / Norm Kirk MD / Norm Kirk MD Interpreting Provider: Norm Kirk MD - EKG Data EKG #1 EKG attestation: Yes I reviewed and interpreted this EKG. EKG results narrative: Patient's EKG was interpreted by me at 17:11 shows junctional tachycardia at 116 bpm I consult with Dr. Moore drum stock clerk on this EKG discussed the findings and he also visualized EKG and states that this is most likely secondary to the patient being in her sepsis state. Rate: tachycardia Rhythm: junctional [place]/QRS: normal P waves: LAE Ectopy: PAC When compared to previous EKG there are: changes noted Critical Care Time Critical Care Time: Yes Total Critical Care Time: 45 Attestation: Critical care performed: Time is exclusive of separately billable procedures. Time includes: direct patient care, patient reassessment, coordination of patient care, interpretation of data (laboratory data, radiology data, and respiratory data), review of patient's medical records, medical consultation and documentation of patient care. Procedures included in critical care time: Procedures excluded from critical care time: Attestation Statement - Attestation Attestation: I, Mp Lopes DO, examined this patient [id number] and my medical decision-making was reviewed with Dr. Coy Branham, Resident Physician. I agree with the documented findings, disposition and treatment plan as described except to the extent set forth below. Please see my progress notes for details. 57-year-old female presents to emergency room for evaluation of altered mentation, hypoxia, increased work of breathing. Currently she is at the extended care nursing facility. They noticed some increased work of breathing and hypoxia at their facility today. Patient typically uses 4 L of oxygen is very poor pulmonary function. On presentation here patient is confused pinpoint pupils are minimally reactive. 0.4 mg of Narcan given once IV access was obtained. Patient was hypotensive hypoxic tachycardic and tachypnea. Patient was immediately placed on BiPAP given steroids and breathing treatments here. Patient also will have cardiac and pulmonary evaluation with CT angiography of the chest and abdomen. Concern is noted for infectious etiology causing altered mentation. Imaging modality show no acute significant findings in the abdomen. Left lung has significant infiltrate with possible aspiration versus pneumonia. Patient has negative CT of the head. EKG shows sinus tachycardia with no acute abnormalities. Initial structural rhythm but otherwise stable. This was reviewed with the drum stock clerk Dr. Joselito Moore at 1700 hrs. He agreed that this is most likely a an ectopic atrial rhythm secondary to the sepsis. Patient has been clinically stabilizing with 1 L of fluid at this time with progressive fluid resuscitation during the treatment course. She does not need a septic criteria this time considering she has a normal lactic acid. She does have a significantly elevated white blood cell count though. Patient will have aggressive fluid resuscitation as needed for blood pressure and heart rate. Patient is responsive to the fluid at this time. Mentation is slightly better after fluid and oxygen were applied by positive pressure ventilation with BiPAP. Patient will need admission to the hospital for definitive management. 45 minutes of critical care participation in the treatment course. Patient is otherwise stable to large peripheral IVs as well as fluid resuscitation process. Antibiotic regimens including Levaquin , vancomycin, Zosyn were ordered at this time. Patient will be admitted for definitive evaluation and treatment course. See detailed documentation of the physical exam, medical intervention, medical decision-making and disposition in the resident physician's note. 1925 Patient is stable at this time. Family is at the bedside. They have reviewed and evaluated the patient themselves and agree that she is acting more appropriate at this time but is still ill in presentation. Patient will be admitted for definitive management at this point. 2134 Patient has received her 30 mg/kg of fluid bolus here. Her lactic acid is 2.1. She does have bandemia and leukocytosis. Patient has not been febrile but has persistent hypotension. Her baseline blood pressure appears to be 90-96 systolic based on records reviewed from previous. Hospitalist, Dr. Wilson, was paged for admission here and she is concerned because we do not have ICU beds available at our facility this time. She recommended transfer to outside facility for definitive management. Patient's mean arterial pressure has been greater than 65 throughout the entire course of care here in the emergency room. Her mentation is getting better and her heart rate is normalizing. 230 Patient was eventually accepted our facility for management. Patient is otherwise stable.
[2017-04-28 18:35] LABS: Lymphocytes # 3.4 K/mcL (0.6-4.6); Neutrophils # 33.5 K/mcL (1.6-8.9); Platelet Estimate Normal (Normal)
[2017-04-28 18:38] LABS: Bilirubin,Urine Negative (Negative); Blood,Urine Negative (Negative); Clarity,Urine Clear (Clear); Color,Urine Yellow (Yellow); Glucose,Urine (UA) Normal (Normal); Ketones,Urine Negative (Negative); Leukocyte Esterase,Urine Negative (Negative); Nitrite,Urine Negative (Negative); PH,Urine 7.5 pH Units (5.0-8.0); Protein,Urine Negative (Neg-Trace); Specific Gravity,Urine 1.011 (1.010-1.025); Urobilinogen,Urine Normal (Normal)
[2017-04-28 19:49] LABS: ABG Base Excess 5 mEq/L (-2 to 3); ABG HCO3 33 mEq/L (21-27); ABG Oxygen Saturation 88 % (95-98); ABG PCO2 62 mmHg (35-45); ABG PH 7.33 pH Units (7.32-7.45); ABG PO2 61 mmHg (85-104); ABG TCO2 35 mEq/L (20-26); Blood Gas Modality NIV
[2017-04-28] MEDS ORDERED: 0.9 % Sodium Chloride 1,000 ML IVC SCH (21:45)
[2017-04-29] MEDS ORDERED: Ipratropium/Albuterol Neb 3 ML IH PRN (02:10)
[2017-04-29] MEDS ORDERED: Naloxone 0.4 MG/ML INJ IVP PRN ×2 (02:15→02:17)
[2017-04-29] MEDS ORDERED: 0.9 % Sodium Chloride 1,000 ML IVC SCH (02:18)
--- NOTE | 2017-04-29 02:25 | Internal Med History&Physical ---
Date of Encounter: 04/29/17 Time of Encounter: 02:22 Assessment and Plan (1) Acute respiratory failure with hypoxia Current visit: Yes Status: Acute acute on chronic failure Now needing bipap overnight IV antibiotics send RVP, pneumoccal ag duonebs consult pulm to assist (2) PNA (pneumonia) Current visit: Yes Status: Acute confirmed on CT chest Qualifiers: Pneumonia type: due to unspecified organism Laterality: left Lung location: lower lobe of lung Qualified Code(s): J18.1 - Lobar pneumonia, unspecified organism (3) COPD (chronic obstructive pulmonary disease) Current visit: Yes Status: Acute treat as above Qualifiers: COPD type: unspecified COPD Qualified Code(s): J44.9 - Chronic obstructive pulmonary disease, unspecified (4) Sepsis Current visit: Yes Status: Acute 2/2 PNA above cx pend, serologies pend IVF for now - watch for vol overload IV antibiotics Qualifiers: Sepsis type: sepsis due to unspecified organism Qualified Code(s): A41.9 - Sepsis, unspecified organism (5) HTN (hypertension) Current visit: No Status: Chronic hold BP med given low normal BP Qualifiers: Hypertension type: other secondary hypertension Internal Medicine - H&P: HPI History of present illness: Ms. Stark is a 57 year old female Past Med Surg Social Fam HX - Past Medical History Medical history: COPD, hypertension, RA Psychiatric history: anxiety - Past Surgical History Surgical History: non-contributory - Social History Smoking Status: Former smoker Smokeless Tobacco Status: No Alcohol use: none Drug use: none - Family History Father Living Status: Brother Hx Family Cardiac Disorders: Yes (HTN) Hx Family Respiratory Disorders: Yes (COPD) Hx Family Cancer: No Hx Family GI Disorders: No Hx Family Endocrine Disorder: No Hx Family Neuromuscular Disorders: No Hx Family Neurologic Disorders: No Hx Family HEENT Disorders: No Hx Family Autoimmune Disorders: No Internal Medicine - H&P: Meds Metoprolol XL (24 HR) Succ [Toprol Xl] 25 mg PO DAILY 01/30/16 [History] Albuterol Sulfate [Ventolin Hfa] 2 puff PO Q6HR PRN 04/14/17 [History] Guaifenesin [Mucinex] 1,200 mg PO BID 04/14/17 [History] Ipratropium/Albuterol Neb [Duoneb] 3 ml IH Q6HR 04/14/17 [History] Montelukast [Singulair] 10 mg PO DAILY 04/14/17 [History] Tiotropium [Spiriva] 18 mcg IH DAILY 04/14/17 [History] Alendronate Sodium [Fosamax] 70 mg PO QWEEK 04/15/17 [History] Budesonide/Formoterol 160/4.5 [Symbicort 160/4.5] 2 puff IH BIDR 04/15/17 [ History] Buspirone HCl [Buspar] 15 mg PO BID 04/15/17 [History] Cholecalciferol (Vitamin D3) [Vitamin D3] 10,000 unit PO 2XW 04/15/17 [History] Denosumab [Prolia (For Outpatient Infusion)] 80 mg SQ Q6M 04/15/17 [History] DiphenhydraMINE [Benadryl] 25 mg PO Q8HR 04/15/17 [History] Lisinopril [Zestril] 5 mg PO DAILY 04/15/17 [History] Melatonin/Pyridoxine HCl (B6) [Melatonin 5 mg Tablet] 5 mg PO HS 04/15/17 [ History] Ondansetron HCl [Zofran] 4 mg PO TID PRN 04/15/17 [History] Polyethylene Glycol 3350 [MiraLAX] 17 gm PO DAILY 04/15/17 [History] Roflumilast [Daliresp] 500 mcg PO DAILY 04/15/17 [History] ALPRAZolam [Xanax 1 MG Tablet] 1 mg PO TID PRN #9 tablet 04/19/17 [Rx] Esomeprazole Magnesium [Nexium] 40 mg PO DAILY #30 capsule. 04/19/17 [Rx] Ferrous Sulfate 325 mg PO BIDWM #60 tablet 04/19/17 [Rx] Oxycodone HCl 15 mg PO Q4HR PRN #12 tablet 04/19/17 [Rx] Oxycodone HCl [Oxaydo] 5 mg PO Q4HR PRN #12 tablet.orl 04/19/17 [Rx] predniSONE [PredniSONE] See Taper PO DAILY #30 tablet 04/19/17 [Rx] 3 Allergy/AdvReac Type Severity Reaction Status Date / Time acetaminophen [From Tylenol] Allergy Rash Verified 09/23/15 06:03 chlordiazepoxide Allergy Rash Verified 09/23/15 06:03 [From Librium] All Systems PM: A 10-system review of systems was performed and is negative for pertinent findings except as documented above in the HPI. Review of systems: ROS 14 point review of systems reviewed as best as possible given presentation. Pertinent positive or negative as per HPI or otherwise reviewed as negative - Constitutional Vitals: Temp Pulse Resp BP Pulse Ox 97.4 F L 104 44 117/68 92 04/29/17 01:29 04/29/17 01:29 04/29/17 01:29 04/29/17 01:29 04/29/17 01:29 Exam: General - AAO x 3 Psych - Appropriate affect/speech. No agitation Eyes - KAYKAY. Eye lids intact. No scleral icterus Neuro - Following commands Heart - Sinus. RRR. S1 and S2 present. No added HS/murmurs appreciated. No elevated JVD appreciated. Lung - Diminished air entry b/l and along bases. Rhonchi , crackles appreciated GI - Soft, non-tender. No hepatosplenomegaly/ascites. BS+ - No CVA/suprapubic tenderness or palpable bladder distension Skin - Intact. No rash/petechiae/ecchymosis. Warm extremities. Tattoos MSK - Joints with normal ROM. No joint swellings. Cachexia Internal Med - H&P Results - Labs CBC & Chem 7: 04/28/17 17:41 04/28/17 17:41
[2017-04-29] MEDS ORDERED: Vancomycin 0 MG in D5% in Water 250 ML IVPB SCH (03:00)
[2017-04-29] MEDS ORDERED: Vancomycin 1,000 MG in D5% in Water 250 ML IVPB SCH (03:00)
[2017-04-29 03:57] LABS: Mean Corpuscular Hemoglobin 24.5 pg (28.0-33.3); Red Cell Distribution Width 18.7 % (11.5-14.5)
[2017-04-29 03:59] LABS: Hemoglobin 10.3 g/dL (11.5-15.4); Mean Corpuscular HGB Conc 29.4 g/dL (31.6-35.5); Mean Corpuscular Volume 83.3 fL (83.0-100.0); Mean Platelet Volume 8.8 fL (9.4-12.4); Platelet Count 350 K/mcL (140-400)
[2017-04-29 04:13] LABS: Alanine Aminotransferase 26 Units/L (7-52); Albumin 3.1 g/dL (3.5-5.7); Albumin/Globulin Ratio 1.3 (1.1-2.2); Alkaline Phosphatase 38 Units/L (34-104); Aspartate Amino Transferase 16 Units/L (13-39); BUN/Creatinine Ratio 13 (6-26); Bilirubin,Direct 0.1 mg/dL (0.0-0.2); Bilirubin,Indirect 0.7 mg/dL (0.0-1.2); Bilirubin,Total 0.8 mg/dL (0.3-1.0); Blood Urea Nitrogen 5 mg/dL (6-20); Calcium 7.5 mg/dL (8.6-10.3); Carbon Dioxide 26 mEq/L (23-29); Chloride 101 mEq/L (98-107); Globulin 2.4 g/dL (2.4-3.5); Glucose 176 mg/dL (70-105); Magnesium 1.5 mg/dL (1.6-2.6); Osmolality,Calculated 278 (280-300); Potassium 3.8 mEq/L (3.5-5.1); Sodium 133 mEq/L (136-145); Total Protein 5.5 g/dL (6.4-8.9); eGFR For African Americans > 60 (> 60); eGFR For Non-African Americans > 60 (> 60)
[2017-04-29] MEDS: *HR* OxyCODONE Immed Rel 5 MG TABLET PO PRN ×5 (04:17→21:53)
[2017-04-29] MEDS: Ipratropium/Albuterol Neb 3 ML IH SCH ×4 (04:23→22:47)
[2017-04-29 04:39] LABS: ABG Base Excess 3 mEq/L (-2 to 3); ABG HCO3 30 mEq/L (21-27); ABG Oxygen Saturation 84 % (95-98); ABG PCO2 59 mmHg (35-45); ABG PH 7.32 pH Units (7.32-7.45); ABG PO2 54 mmHg (85-104); ABG TCO2 32 mEq/L (20-26)
[2017-04-29 04:47] LABS: Lymphocytes # 0.8 K/mcL (0.6-4.6); Monocytes # 2.5 K/mcL (0.0-1.3); Neutrophils # 37.7 K/mcL (1.6-8.9); Platelet Estimate Normal (Normal)
[2017-04-29] MEDS: Cefepime HCl 2,000 MG in Water for inj. (sterile) 20 ML 20 ML IVP SCH ×2 (05:33→18:06)
[2017-04-29] MEDS ORDERED: Cefepime HCl 2,000 MG in D5% in Water (Mini-Bag+) 100 ML IVPB SCH (06:00)
[2017-04-29] MEDS ORDERED: *HR* Enoxaparin 30 MG/0.3 ML SYRINGE SQ SCH (06:00)
--- NOTE | 2017-04-29 08:18 | Internal Med Progress Note ---
<MarcialKishor - Last Filed: 04/29/17 10:04> Date of Encounter: 04/29/17 Time of Encounter: 08:16 - Assessment and plan (1) Acute and chronic respiratory failure ([id number]) Current Visit: No Status: Acute Assessment and plan: Secondary to pneumonia/sepsis and COPD exacerbation Will start on broad spectrum antibiotics and supportive measures with supplemental oxygen Continue home breathing treatments in addition to scheduled and PRN duonebs Await RIP and blood culture results Pulmonology consulted, appreciate recommendations Qualifiers: Respiratory failure complication: hypoxia and hypercapnia Qualified Code(s) : J96.21 - Acute and chronic respiratory failure with hypoxia; J96.22 - Acute and chronic respiratory failure with hypercapnia; J96.22 - Acute and chronic respiratory failure with hypercapnia; J96.22 - Acute and chronic respiratory failure with hypercapnia (2) Sepsis Current Visit: Yes Status: Acute Assessment and plan: Secondary to pneumonia and possibly pyelonephritis; presented with white count of 40's with bandemia, tachycardia, tachypnea Continue on Vanc, Levaquin, Cefepime as she has previous hospitalization and [facility] residence Await blood cultures prior to de-escalation Appears mildly dehydrated, so will continue on maintenance fluids at 100 ml/hr Qualifiers: Sepsis type: sepsis due to unspecified organism Qualified Code(s): A41.9 - Sepsis, unspecified organism (3) Acute exacerbation of chronic obstructive airways disease Current Visit: No Status: Acute Assessment and plan: Patient is clinically improving and is back to her home dose of oxygen Continue with steroids, breathing treatments as scheduled, and supplemental oxygen (4) PNA (pneumonia) Current Visit: Yes Status: Acute Assessment and plan: Given her recent hospitalization and her [facility] residence, will continue broad coverage with Vanc, Levaquin, Cefepime CXR/CT did demonstrate large consolidation on left side Continue supportive measures with supplemental oxygen and breathing treatments Awaiting blood cultures Qualifiers: Pneumonia type: due to unspecified organism Laterality: left Lung location: lower lobe of lung Qualified Code(s): J18.1 - Lobar pneumonia, unspecified organism (5) Leukocytosis Current Visit: Yes Status: Acute Assessment and plan: Likely secondary to acute infection given bandemia She was also on steroid taper from previous hospitalization for COPD exacerbation If leukocytosis persists despite infection control, will consider further workup such as peripheral smear Qualifiers: Leukocytosis type: bandemia Qualified Code(s): D72.825 - Bandemia (6) Pyelonephritis Current Visit: Yes Status: Acute Assessment and plan: Patient does not present with fever but does have flank pain on both sides, which is confounded by chronic back pain CT demonstrated striated nephrograms bilaterally worse on the left, but UA is completely normal Will continue broad spectrum antibiotics until cultures result (7) Anemia Current Visit: No Status: Chronic Assessment and plan: Hb slightly lower at 10.3 from 11.5 but likely due to dilution Continue to monitor, she has no signs of blood loss Qualifiers: Anemia type: iron deficiency Iron deficiency anemia type: other iron deficiency Qualified Code(s): D50.8 - Other iron deficiency anemias (8) HTN (hypertension) Current Visit: No Status: Chronic Assessment and plan: Blood pressures well controlled Holding home Lisinopril in setting of borderline pressures Qualifiers: Hypertension type: other secondary hypertension Qualified Code(s): I15.8 - Other secondary hypertension (9) Rheumatoid arthritis Current Visit: No Status: Chronic Assessment and plan: Currently on steroids Has follow up with Rheum as outpatient Qualifiers: Rheumatoid arthritis location: hand Rheumatoid factor presence: with rheumatoid factor Laterality: bilateral Qualified Code(s): M05.741 - Rheumatoid arthritis with rheumatoid factor of right hand without organ or systems involvement; M05.742 - Rheumatoid arthritis with rheumatoid factor of left hand without organ or systems involvement; M05.742 - Rheumatoid arthritis with rheumatoid factor of left hand without organ or systems involvement; M05.742 - Rheumatoid arthritis with rheumatoid factor of left hand without organ or systems involvement; M05.742 - Rheumatoid arthritis with rheumatoid factor of left hand without organ or systems involvement (10) DVT prophylaxis Current Visit: No Status: Acute Assessment and plan: Lovenox SQ - Subjective Interval history: Pt seen and examined. She states she is breathing much better but is complaining of chronic back pain. She is down to her home dose of 4.5 L oxygen and states she is having a dry cough. Denies any chest pain, nausea, vomiting, diarrhea, or fevers. - Constitutional Vitals: Temp Pulse Resp BP Pulse Ox 98.1 F 115 24 107/83 91 04/29/17 07:12 04/29/17 07:12 04/29/17 07:12 04/29/17 07:12 04/29/17 07:12 General appearance: Present: cooperative, A&O X 3, pleasant, no acute distress, answers questions appropriately - Head Head exam: Present: atraumatic, normocephalic - Eye Eye exam: Present: PERRL, conjuntiva pink, sclera anicteric - Neck Neck exam general surgery: Present: supple, trachea midline. Absent: lymphadenopathy - Respiratory Respiratory exam: Present: decreased breath sounds. Absent: accessory muscle use, rales, rhonchi, wheezes - Cardiovascular Cardiovascular exam: Present: +S1, +S2, tachycardia. Absent: diastolic murmur, gallop, rubs, systolic murmur - GI/Abdominal GI/Abdominal exam: Present: normal bowel sounds, soft, no peritoneal signs. Absent: distended, tenderness - Extremities Exam Extremities exam: Present: warm, radial pulses palpable and symmetrical. Absent : calf tenderness, cyanotic, pedal edema - Neurological Exam Neurological exam: Present: alert, oriented X3, no focal deficits. Absent: facial droop, speech deficit - Skin Skin exam: Present: dry, intact Internal Medicine: Result - Labs CBC & Chem 7: 04/29/17 03:27 04/29/17 03:27 Labs: Short CBC 04/29/17 Range/Units 03:27 WBC 41.0 H* (4.3-11.1) K/mcL Hgb 10.3 L (11.5-15.4) g/dL Hct 35.0 L (35.3-44.9) % Plt Count 350 (140-400) K/mcL Neutrophils # 37.7 H (1.6-8.9) K/mcL BMP 04/29/17 03:27 Sodium 133 L Potassium 3.8 Chloride 101 Carbon Dioxide 26 BUN 5 L Creatinine 0.40 L Glucose 176 H Calcium 7.5 L Liver Function 04/29/17 Range/Units 03:27 Total Bilirubin 0.8 (0.3-1.0) mg/dL Direct Bilirubin 0.1 (0.0-0.2) mg/dL AST 16 (13-39) Units/L ALT 26 (7-52) Units/L Alkaline Phosphatase 38 (34-104) Units/L Albumin 3.1 L (3.5-5.7) g/dL - ABG Interpretation ABG results: ABG ABG pH 7.32 pH Units (7.32-7.45) 04/29/17 04:37 ABG pCO2 59 mmHg (35-45) H 04/29/17 04:37 ABG pO2 54 mmHg (85-104) L 04/29/17 04:37 ABG O2 Saturation 84 % (95-98) L 04/29/17 04:37 PT/INR, D-dimer PT 11.2 Seconds (9.4-12.1) 04/28/17 17:41 Consult Discharge Plan - Plan Referrals: NONE,PCP [Primary Care Provider] - <Luis Cordova - Last Filed: 04/29/17 12:41> Date of Encounter: 04/29/17 - Constitutional Vitals: Temp Pulse Resp BP Pulse Ox 99.0 F 124 20 104/79 89 04/29/17 11:23 04/29/17 11:23 04/29/17 11:23 04/29/17 11:23 04/29/17 11:23 Internal Medicine: Result - Labs CBC & Chem 7: 04/29/17 03:27 04/29/17 03:27 Labs: Short CBC 04/29/17 Range/Units 03:27 WBC 41.0 H* (4.3-11.1) K/mcL Hgb 10.3 L (11.5-15.4) g/dL Hct 35.0 L (35.3-44.9) % Plt Count 350 (140-400) K/mcL Neutrophils # 37.7 H (1.6-8.9) K/mcL BMP 04/29/17 03:27 Sodium 133 L Potassium 3.8 Chloride 101 Carbon Dioxide 26 BUN 5 L Creatinine 0.40 L Glucose 176 H Calcium 7.5 L Liver Function 04/29/17 Range/Units 03:27 Total Bilirubin 0.8 (0.3-1.0) mg/dL Direct Bilirubin 0.1 (0.0-0.2) mg/dL AST 16 (13-39) Units/L ALT 26 (7-52) Units/L Alkaline Phosphatase 38 (34-104) Units/L Albumin 3.1 L (3.5-5.7) g/dL - ABG Interpretation ABG results: ABG ABG pH 7.32 pH Units (7.32-7.45) 04/29/17 04:37 ABG pCO2 59 mmHg (35-45) H 04/29/17 04:37 ABG pO2 54 mmHg (85-104) L 04/29/17 04:37 ABG O2 Saturation 84 % (95-98) L 04/29/17 04:37 PT/INR, D-dimer PT 11.2 Seconds (9.4-12.1) 04/28/17 17:41 - Attending Attestation I examined this patient and my medical decision-making was reviewed with the Resident Physician Dr. Ceja. I agree with the documented findings, disposition and treatment plan as described except to the extent set forth below. Ms. Shea is a 57-year-old female with a past medical history of COPD oxygen dependent, hypertension, RA, back surgery, and anxiety is presenting from a [facility] facility [facility] after being found be hypoxic at 70%. Pt was placed on BiPAP initially. Now she is off the BiPAP, currently on 4 lit NC O2. She states she is feeling little better now. Denied any CP. Gen: A, A, O x 3 Chest: Ronchi + Rales+ coarse BS + junky secretions+ Heart: S1SS2+ Tachycardia a/p 1. Acute on chronic hypoxic resp failure 2. Acute on chronic hypercapneic resp failure 3. MLL Pneumonia - mostly bacterial 4. Severe Sepsis - elevated WBC + tachycardia + Source of Inf as PNA cont empirical abx Cefepime + Vanco + Levaquin IV steroids Duoneb BiPAP PRN IV hydration Reviewd ABG showed improving PCo2. she might have chronic Co2 retaining. May get benefit with Home BiPAP Eval 5. Pyelonephritis - on CTA of Abd UA - benign cont empirical abx 6. Pleursl effusion / Pulm edema due to PNA will get an 2 D Echo holding on diuretics now since pt is septic and intra vascular volume depleted
[2017-04-29] MEDS: ALPRAZolam 1 MG TABLET PO PRN ×2 (08:20→14:26)
[2017-04-29] MEDS: MethylPREDNISolone 40 MG/ML VIAL IVP SCH ×2 (08:20→21:54)
--- NOTE | 2017-04-29 08:53 | Electrocardiograph Report ---
[address] [address] Test Date: 2017-04-28 Pat Name: Anju Stark Department: 103 Room: 2N05 Gender: F Alcoholic Counselor: AALIYAH : 1960 Requested By: Mp Lopes Order Number: [id number] Reading MD: Daniel Siddiqi MD Measurements Intervals [place] Rate: 116 P: 260 DC: 127 QRS: 13 QRSD: 80 T: 5 QT: 341 QTc: 410 Interpretive Statements SINUS TACHYCARDIA LEFT ATRIAL ENLARGEMENT BASELINE ARTIFACT COMPLICATES ACCURATE INTERPRETATION Electronically Signed On 04-29-2017 8:51:53 EST by Daniel Siddiqi MD
[2017-04-29] MEDS ORDERED: Tiotropium 18 MCG inhalation IH SCH (09:00)
[2017-04-29] MEDS ORDERED: Roflumilast [Daliresp] 500 MCG) PO SCH (09:00)
[2017-04-29] MEDS ORDERED: Levofloxacin 500 MG/100 ML 500 MG/100 ML BAG IVPB SCH ×2 (09:00→20:00)
[2017-04-29] MEDS: Budesonide/Formoterol 160/4.5 MDI IH SCH ×2 (10:31→22:47)
[2017-04-29] MEDS ORDERED: Acetaminophen 325 MG TABLET PO PRN (10:32)
[2017-04-29 10:38] LABS: Adenovirus Not Detected (Not Detect); Bordetella Pertussis Not Detected (Not Detect); Chlamydophila pneumoniae Not Detected (Not Detect); Coronavirus 229E Not Detected (Not Detect); Coronavirus HKU1 Not Detected (Not Detect); Coronavirus NL63 Not Detected (Not Detect); Coronavirus OC43 Not Detected (Not Detect); Human Metapneumovirus Not Detected (Not Detect); Human Rhinovirus/Enterovirus Not Detected (Not Detect); Influenza A Subtype 2009 H1 Not Detected (Not Detect); Influenza A Untypeable Not Detected (Not Detect); Influenza B Not Detected (Not Detect); Mycoplasma pneumoniae Not Detected (Not Detect); Parainfluenza Virus 1 Not Detected (Not Detect); Parainfluenza Virus 2 Not Detected (Not Detect); Parainfluenza Virus 3 Not Detected (Not Detect); Parainfluenza Virus 4 Not Detected (Not Detect); Respiratory Syncytial Virus Not Detected (Not Detect)
[2017-04-29] MEDS: Ibuprofen 600 MG TABLET PO PRN (12:13)
[2017-04-29] MEDS ORDERED: Albuterol 2.5 MG/3 ML NEBULIZER IH PRN (14:22)
[2017-04-29] MEDS: Levofloxacin 750 MG/150 ML 750 MG/150 ML BAG IVPB SCH (16:29)
[2017-04-30 02:23] LABS: Basophils % 0.1 %; Hematocrit 31.2 % (35.3-44.9); Hemoglobin 9.3 g/dL (11.5-15.4); Immature Granulocytes % 3.2 % (0-4); Immature Platelets 1.1 % (1.1-6.1); Lymphocytes # 0.2 K/mcL (0.6-4.6); Lymphocytes % 0.7 %; Mean Corpuscular HGB Conc 29.8 g/dL (31.6-35.5); Mean Corpuscular Hemoglobin 24.9 pg (28.0-33.3); Mean Corpuscular Volume 83.4 fL (83.0-100.0); Mean Platelet Volume 8.7 fL (9.4-12.4); Monocytes # 0.8 K/mcL (0.0-1.3); Monocytes % 3.3 %; Platelet Count 318 K/mcL (140-400); Red Blood Count 3.74 M/mcL (3.82-4.97); Red Cell Distribution Width 19.1 % (11.5-14.5); Segmented Neutrophils % 92.7 %
[2017-04-30] MEDS: Ibuprofen 600 MG TABLET PO PRN (02:23)
[2017-04-30 02:41] LABS: Alanine Aminotransferase 21 Units/L (7-52); Albumin 2.9 g/dL (3.5-5.7); Alkaline Phosphatase 40 Units/L (34-104); Aspartate Amino Transferase 10 Units/L (13-39); BUN/Creatinine Ratio 20 (6-26); Bilirubin,Direct 0.1 mg/dL (0.0-0.2); Bilirubin,Indirect 0.3 mg/dL (0.0-1.2); Bilirubin,Total 0.4 mg/dL (0.3-1.0); Blood Urea Nitrogen 8 mg/dL (6-20); Calcium 7.7 mg/dL (8.6-10.3); Carbon Dioxide 30 mEq/L (23-29); Chloride 107 mEq/L (98-107); Globulin 2.8 g/dL (2.4-3.5); Glucose 167 mg/dL (70-105); Osmolality,Calculated 290 (280-300); Potassium 3.3 mEq/L (3.5-5.1); Sodium 139 mEq/L (136-145); Total Protein 5.7 g/dL (6.4-8.9); eGFR For African Americans > 60 (> 60); eGFR For Non-African Americans > 60 (> 60)
[2017-04-30] MEDS ORDERED: Vancomycin 1,000 MG in D5% in Water 250 ML IVPB SCH (03:00)
[2017-04-30 03:05] LABS: Anisocytosis 1+ (Not Present); Large Platelets Present (Not Present); Microcytosis Present (Not Present); Platelet Estimate Normal (Normal)
[2017-04-30 03:06] LABS: Polychromasia 1+ (Not Present); Reactive Lymphocytes Present (Not Present)
[2017-04-30] MEDS: Ipratropium/Albuterol Neb 3 ML IH SCH ×4 (04:06→22:43)
[2017-04-30] MEDS: Cefepime HCl 2,000 MG in Water for inj. (sterile) 20 ML 20 ML IVP SCH ×2 (06:01→21:25)
[2017-04-30] MEDS: *HR* Enoxaparin 40 MG/0.4 ML SYRINGE SQ SCH (06:02)
[2017-04-30] MEDS: ALPRAZolam 1 MG TABLET PO PRN ×3 (07:45→23:03)
[2017-04-30] MEDS: MethylPREDNISolone 40 MG/ML VIAL IVP SCH (07:46)
[2017-04-30] MEDS: *HR* OxyCODONE Immed Rel 5 MG TABLET PO PRN ×4 (07:46→20:47)
[2017-04-30] MEDS ORDERED: Aminoglycoside Consult 1 EACH MC ONE (08:00)
--- NOTE | 2017-04-30 09:09 | Internal Med Progress Note ---
Date of Encounter: 04/30/17 Time of Encounter: 09:07 - Assessment and plan (1) Streptococcal pneumonia Current Visit: Yes Status: Acute Assessment and plan: Improving Urine strep pneumonia came back as positive d/c Vanc cont Levaquin + Cefepime for now (2) Acute and chronic respiratory failure with hypoxia Current Visit: Yes Status: Acute Assessment and plan: Improving seems to be almost close baseline cont duoneb + tapering steroids (3) Acute exacerbation of chronic obstructive airways disease Current Visit: No Status: Acute Assessment and plan: Patient is clinically improving and is back to her home dose of oxygen Continue tapering steroids, breathing treatments as scheduled, and supplemental oxygen (4) Rheumatoid arthritis Current Visit: No Status: Chronic Assessment and plan: Currently on steroids Has follow up with Rheum as outpatient Qualifiers: Rheumatoid arthritis location: hand Rheumatoid factor presence: with rheumatoid factor Laterality: bilateral Qualified Code(s): M05.741 - Rheumatoid arthritis with rheumatoid factor of right hand without organ or systems involvement; M05.742 - Rheumatoid arthritis with rheumatoid factor of left hand without organ or systems involvement; M05.742 - Rheumatoid arthritis with rheumatoid factor of left hand without organ or systems involvement; M05.742 - Rheumatoid arthritis with rheumatoid factor of left hand without organ or systems involvement; M05.742 - Rheumatoid arthritis with rheumatoid factor of left hand without organ or systems involvement (5) Sepsis Current Visit: Yes Status: Acute Assessment and plan: Secondary to pneumonia and possibly pyelonephritis; presented with white count of 40's with bandemia, tachycardia, tachypnea Improving WBC down to 24 Continue Levaquin, and Cefepime as she has previous hospitalization and [facility] residence d/c IV fluids Blood cx no growth so far Qualifiers: Sepsis type: sepsis due to unspecified organism Qualified Code(s): A41.9 - Sepsis, unspecified organism (6) Hypercapnic respiratory failure Current Visit: Yes Status: Acute Assessment and plan: she does have acute on chronic hypercapneic resp failure may get benefit with BiPAP therapy will order over night BiPAP study before she goes back to [facility] Qualifiers: Chronicity: acute on chronic Qualified Code(s): J96.22 - Acute and chronic respiratory failure with hypercapnia (7) Pyelonephritis Current Visit: Yes Status: Acute Assessment and plan: Patient does not present with fever but does have flank pain on both sides, which is confounded by chronic back pain CT demonstrated striated nephrograms bilaterally worse on the left, but UA is completely normal Will continue broad spectrum antibiotics until cultures result - Subjective Interval history: Ms. Shea is a 57-year-old female with a past medical history of COPD oxygen dependent, hypertension, RA, back surgery, and anxiety is presenting from a nursing home facility by [facility] after being found be hypoxic at 70%. Pt was placed on BiPAP initially. Now she is off the BiPAP, currently on 4 lit NC O2. She states she is feeling little better today. Denied any CP.Still has moderate ALFRED and SOB. Cough + - Constitutional Vitals: Temp Pulse Resp BP Pulse Ox 98.4 F 97 24 107/67 97 04/30/17 06:48 04/30/17 06:48 04/30/17 06:48 04/30/17 06:48 04/30/17 06:48 General appearance: Present: cooperative, A&O X 3, pleasant, no acute distress, answers questions appropriately - Head Head exam: Present: atraumatic, normal inspection - Neck Neck exam general surgery: Present: supple - Respiratory Respiratory exam: Present: decreased breath sounds, wheezes (mild). Absent: rales, respiratory distress, rhonchi - Cardiovascular Cardiovascular exam: Present: RRR, +S1, +S2. Absent: tachycardia - GI/Abdominal GI/Abdominal exam: Present: normal bowel sounds, soft. Absent: rebound, rigid, tenderness - Extremities Exam Extremities exam: Absent: calf tenderness, pedal edema, tenderness - Back Exam Back exam: Absent: CVA tenderness (L), CVA tenderness (R) Internal Medicine: Result - Labs CBC & Chem 7: 04/30/17 02:16 04/30/17 02:16 Labs: Short CBC 04/30/17 Range/Units 02:16 WBC 24.8 H (4.3-11.1) K/mcL Hgb 9.3 L (11.5-15.4) g/dL Hct 31.2 L (35.3-44.9) % Plt Count 318 (140-400) K/mcL Neutrophils # 23.0 H (1.6-8.9) K/mcL BMP 04/30/17 02:16 Sodium 139 Potassium 3.3 L Chloride 107 Carbon Dioxide 30 H BUN 8 Creatinine 0.41 L Glucose 167 H Calcium 7.7 L Liver Function 04/30/17 Range/Units 02:16 Total Bilirubin 0.4 (0.3-1.0) mg/dL Direct Bilirubin 0.1 (0.0-0.2) mg/dL AST 10 L (13-39) Units/L ALT 21 (7-52) Units/L Alkaline Phosphatase 40 (34-104) Units/L Albumin 2.9 L (3.5-5.7) g/dL - ABG Interpretation ABG results: ABG ABG pH 7.32 pH Units (7.32-7.45) 04/29/17 04:37 ABG pCO2 59 mmHg (35-45) H 04/29/17 04:37 ABG pO2 54 mmHg (85-104) L 04/29/17 04:37 ABG O2 Saturation 84 % (95-98) L 04/29/17 04:37 PT/INR, D-dimer PT 11.2 Seconds (9.4-12.1) 04/28/17 17:41 Consult Discharge Plan - Plan Referrals: NONE,PCP [Primary Care Provider] -
[2017-04-30] MEDS: Budesonide/Formoterol 160/4.5 MDI IH SCH ×2 (09:44→22:43)
[2017-04-30] MEDS: Levofloxacin 750 MG/150 ML 750 MG/150 ML BAG IVPB SCH (15:16)
[2017-04-30] MEDS: Nitroglycerin 0.4 MG TAB.SUBL SL PRN (21:56)
[2017-05-01] MEDS ORDERED: GuaiFENesin Liq 200 MG/10 ML UDC PO PRN (00:06)
[2017-05-01] MEDS: *HR* OxyCODONE Immed Rel 5 MG TABLET PO PRN ×5 (02:24→22:38)
[2017-05-01] MEDS: ALPRAZolam 1 MG TABLET PO PRN ×2 (04:05→20:55)
[2017-05-01] MEDS: Ipratropium/Albuterol Neb 3 ML IH SCH ×3 (04:32→22:22)
[2017-05-01 05:43] LABS: Basophils % 0.1 %; Hematocrit 29.6 % (35.3-44.9); Immature Granulocytes % 0.7 % (0-4); Lymphocytes # 0.3 K/mcL (0.6-4.6); Lymphocytes % 2.3 %; Mean Corpuscular HGB Conc 28.7 g/dL (31.6-35.5); Mean Corpuscular Hemoglobin 24.4 pg (28.0-33.3); Mean Corpuscular Volume 84.8 fL (83.0-100.0); Monocytes # 0.6 K/mcL (0.0-1.3); Monocytes % 4.3 %; Neutrophils # 12.8 K/mcL (1.6-8.9); Platelet Count 243 K/mcL (140-400); Red Blood Count 3.49 M/mcL (3.82-4.97); Red Cell Distribution Width 19.6 % (11.5-14.5); Segmented Neutrophils % 92.6 %
[2017-05-01 05:45] LABS: Hemoglobin 8.5 g/dL (11.5-15.4)
[2017-05-01 05:55] LABS: Alanine Aminotransferase 17 Units/L (7-52); Albumin/Globulin Ratio 1.1 (1.1-2.2); Alkaline Phosphatase 39 Units/L (34-104); Aspartate Amino Transferase 8 Units/L (13-39); BUN/Creatinine Ratio 38 (6-26); Bilirubin,Direct 0.1 mg/dL (0.0-0.2); Bilirubin,Indirect 0.3 mg/dL (0.0-1.2); Bilirubin,Total 0.4 mg/dL (0.3-1.0); Blood Urea Nitrogen 15 mg/dL (6-20); Calcium 8.6 mg/dL (8.6-10.3); Carbon Dioxide 28 mEq/L (23-29); Chloride 107 mEq/L (98-107); Globulin 2.7 g/dL (2.4-3.5); Glucose 158 mg/dL (70-105); Osmolality,Calculated 294 (280-300); Potassium 4.3 mEq/L (3.5-5.1); Sodium 140 mEq/L (136-145); Total Protein 5.7 g/dL (6.4-8.9); eGFR For African Americans > 60 (> 60); eGFR For Non-African Americans > 60 (> 60)
[2017-05-01 06:04] LABS: Anisocytosis 1+ (Not Present); Hypochromasia Present (Not Present); Platelet Estimate Normal (Normal)
[2017-05-01 06:05] LABS: Microcytosis Present (Not Present)
[2017-05-01] MEDS: Cefepime HCl 2,000 MG in Water for inj. (sterile) 20 ML 20 ML IVP SCH ×2 (06:37→18:05)
[2017-05-01] MEDS: *HR* Enoxaparin 40 MG/0.4 ML SYRINGE SQ SCH (06:42)
[2017-05-01] MEDS: MethylPREDNISolone 40 MG/ML VIAL IVP SCH (09:56)
[2017-05-01] MEDS: Budesonide/Formoterol 160/4.5 MDI IH SCH ×2 (11:40→22:23)
[2017-05-01] MEDS ORDERED: Albuterol 2.5 MG/3 ML NEBULIZER IH SCH (16:00)
--- NOTE | 2017-05-01 16:00 | Internal Med Progress Note ---
Date of Encounter: 05/01/17 Time of Encounter: 13:00 - Assessment and plan (1) Streptococcal pneumonia Current Visit: Yes Status: Acute Assessment and plan: Improving Urine strep pneumonia came back as positive cont Levaquin + Cefepime for now (2) Acute and chronic respiratory failure with hypoxia Current Visit: Yes Status: Acute Assessment and plan: Improving seems to be almost close to baseline cont duoneb + tapering steroids (3) Acute exacerbation of chronic obstructive airways disease Current Visit: No Status: Acute Assessment and plan: Patient is clinically improving and is back to her home dose of oxygen Continue tapering steroids, breathing treatments as scheduled, and supplemental oxygen (4) Rheumatoid arthritis Current Visit: No Status: Chronic Assessment and plan: Currently on steroids Has follow up with Rheum as outpatient Qualifiers: Rheumatoid arthritis location: hand Rheumatoid factor presence: with rheumatoid factor Laterality: bilateral Qualified Code(s): M05.741 - Rheumatoid arthritis with rheumatoid factor of right hand without organ or systems involvement; M05.742 - Rheumatoid arthritis with rheumatoid factor of left hand without organ or systems involvement; M05.742 - Rheumatoid arthritis with rheumatoid factor of left hand without organ or systems involvement; M05.742 - Rheumatoid arthritis with rheumatoid factor of left hand without organ or systems involvement; M05.742 - Rheumatoid arthritis with rheumatoid factor of left hand without organ or systems involvement (5) Sepsis Current Visit: Yes Status: Acute Assessment and plan: Secondary to pneumonia and possibly pyelonephritis; presented with white count of 40's with bandemia, tachycardia, tachypnea Improving WBC down to 13.8 today Continue Levaquin, and Cefepime as she has previous hospitalization and alf residence Blood cx no growth so far Qualifiers: Sepsis type: sepsis due to unspecified organism Qualified Code(s): A41.9 - Sepsis, unspecified organism (6) Hypercapnic respiratory failure Current Visit: Yes Status: Acute Assessment and plan: she does have acute on chronic hypercapneic resp failure may get benefit with BiPAP therapy will order over night BiPAP study tonight Qualifiers: Chronicity: acute on chronic Qualified Code(s): J96.22 - Acute and chronic respiratory failure with hypercapnia (7) Pyelonephritis Current Visit: Yes Status: Acute Assessment and plan: Patient does not present with fever but does have flank pain on both sides, which is confounded by chronic back pain CT demonstrated striated nephrograms bilaterally worse on the left, but UA is completely normal Will continue broad spectrum antibiotics until cultures result - Subjective Interval history: Ms. Shea is a 57-year-old female with a past medical history of COPD oxygen dependent, hypertension, RA, back surgery, and anxiety is presenting from a shelter facility by squad after being found be hypoxic at 70%. Pt was placed on BiPAP initially. Now she is off the BiPAP, currently on 4 lit NC O2. She states she is feeling little better today. Denied any CP.Still has mild ALFRED and SOB. Cough + . Over all feels better. - Constitutional Vitals: Temp Pulse Resp BP Pulse Ox 98.1 F 92 16 113/63 95 05/01/17 12:08 05/01/17 12:08 05/01/17 12:08 05/01/17 12:08 05/01/17 12:08 General appearance: Present: cooperative, A&O X 3, pleasant, no acute distress, answers questions appropriately - Head Head exam: Present: atraumatic, normal inspection - Neck Neck exam general surgery: Present: supple - Respiratory Respiratory exam: Present: decreased breath sounds, wheezes (modertae). Absent : rales, respiratory distress, rhonchi - Cardiovascular Cardiovascular exam: Present: +S1, +S2. Absent: tachycardia - GI/Abdominal GI/Abdominal exam: Present: normal bowel sounds, soft. Absent: rebound, rigid, tenderness - Extremities Exam Extremities exam: Absent: calf tenderness, pedal edema, tenderness - Back Exam Back exam: Absent: CVA tenderness (L), CVA tenderness (R) - Psychiatric Psychiatric exam: Present: anxious Internal Medicine: Result - Labs CBC & Chem 7: 05/01/17 05:26 05/01/17 05:26 Labs: Short CBC 05/01/17 Range/Units 05:26 WBC 13.8 H (4.3-11.1) K/mcL Hgb 8.5 L (11.5-15.4) g/dL Hct 29.6 L (35.3-44.9) % Plt Count 243 (140-400) K/mcL Neutrophils # 12.8 H (1.6-8.9) K/mcL BMP 05/01/17 05:26 Sodium 140 Potassium 4.3 Chloride 107 Carbon Dioxide 28 BUN 15 Creatinine 0.39 L Glucose 158 H Calcium 8.6 Cardiac Enzymes 04/30/17 Range/Units 22:31 Troponin I < 0.03 (< 0.04) ng/mL Liver Function 05/01/17 Range/Units 05:26 Total Bilirubin 0.4 (0.3-1.0) mg/dL Direct Bilirubin 0.1 (0.0-0.2) mg/dL AST 8 L (13-39) Units/L ALT 17 (7-52) Units/L Alkaline Phosphatase 39 (34-104) Units/L Albumin 3.0 L (3.5-5.7) g/dL - ABG Interpretation ABG results: ABG ABG pH 7.32 pH Units (7.32-7.45) 04/29/17 04:37 ABG pCO2 59 mmHg (35-45) H 04/29/17 04:37 ABG pO2 54 mmHg (85-104) L 04/29/17 04:37 ABG O2 Saturation 84 % (95-98) L 04/29/17 04:37 PT/INR, D-dimer PT 11.2 Seconds (9.4-12.1) 04/28/17 17:41 - Impressions Impressions Echocardiogram 04/29/17 12:41 Impressions: LVEF 55%. Normal left ventricular diastolic function. Normal right ventricular structure and function. Estimated RVSP was 33 mmHg. Mild pulmonary hypertension. Left Ventricular Wall Motion: Rest Echo Findings All wall segments showed normal motion. Findings: Study Quality * Technically adequate exam. ECG Findings * Normal sinus rhythm. Left Ventricle * LVEF 55%. * Mild concentric left ventricular hypertrophy. * Normal left ventricular diastolic function. Right Ventricle * Normal right ventricular structure and function. Left Atrium * Mildly dilated left atrium. Right Atrium * Normal right atrial size. Interatrial Septum * No evidence of PFO by color Doppler. Aortic Valve * Aortic valve not well visualized. Mitral Valve * Trace mitral regurgitation. Tricuspid Valve * Mild-moderate tricuspid regurgitation. Pulmonic Valve * Pulmonic valve not well visualized. Aorta * Normally sized aortic root. Pericardium * The pericardium appears normal. IVC * Normal IVC dimensions and inspiratory collapse. Consult Discharge Plan - Plan Referrals: NONE,PCP [Primary Care Provider] -
[2017-05-01] MEDS: Nitroglycerin 0.4 MG TAB.SUBL SL PRN ×4 (16:25→20:22)
[2017-05-01] MEDS: Levofloxacin 750 MG/150 ML 750 MG/150 ML BAG IVPB SCH (16:28)
[2017-05-01] MEDS: Ibuprofen 600 MG TABLET PO PRN (16:28)
[2017-05-01] MEDS: Albuterol 2.5 MG/3 ML NEBULIZER IH SCH ×2 (16:42→22:23)
[2017-05-02] MEDS: Ibuprofen 600 MG TABLET PO PRN (01:15)
[2017-05-02] MEDS ORDERED: traMADol 50 MG TABLET PO ONE (01:37)
[2017-05-02] MEDS: ALPRAZolam 1 MG TABLET PO PRN (03:00)
[2017-05-02] MEDS: Albuterol 2.5 MG/3 ML NEBULIZER IH SCH ×2 (04:03→10:36)
[2017-05-02 04:55] LABS: Hematocrit 28.4 % (35.3-44.9); Hemoglobin 8.3 g/dL (11.5-15.4); Immature Granulocytes % 0.6 % (0-4); Lymphocytes # 0.5 K/mcL (0.6-4.6); Lymphocytes % 6.5 %; Mean Corpuscular HGB Conc 29.2 g/dL (31.6-35.5); Mean Corpuscular Hemoglobin 24.4 pg (28.0-33.3); Mean Corpuscular Volume 83.5 fL (83.0-100.0); Monocytes # 0.5 K/mcL (0.0-1.3); Monocytes % 5.5 %; Neutrophils # 7.1 K/mcL (1.6-8.9); Platelet Count 247 K/mcL (140-400); Segmented Neutrophils % 87.4 %
[2017-05-02] MEDS: Cefepime HCl 2,000 MG in Water for inj. (sterile) 20 ML 20 ML IVP SCH (04:59)
[2017-05-02] MEDS: *HR* OxyCODONE Immed Rel 5 MG TABLET PO PRN ×3 (05:02→13:22)
[2017-05-02] MEDS: *HR* Enoxaparin 40 MG/0.4 ML SYRINGE SQ SCH (05:03)
[2017-05-02 05:11] LABS: BUN/Creatinine Ratio 43 (6-26); Blood Urea Nitrogen 15 mg/dL (6-20); Calcium 8.7 mg/dL (8.6-10.3); Carbon Dioxide 36 mEq/L (23-29); Chloride 102 mEq/L (98-107); Glucose 113 mg/dL (70-105); Osmolality,Calculated 294 (280-300); Potassium 4.4 mEq/L (3.5-5.1); Sodium 141 mEq/L (136-145); eGFR For African Americans > 60 (> 60); eGFR For Non-African Americans > 60 (> 60)
--- NOTE | 2017-05-02 08:45 | Discharge Summary ---
<FernandoDionisio bob - Last Filed: 05/02/17 12:58> Date of Encounter: 05/02/17 Time of Encounter: 08:40 - Discharge Diagnosis (1) Acute and chronic respiratory failure with hypoxia Priority: Primary Status: Acute (2) Acute exacerbation of chronic obstructive airways disease Priority: Secondary Status: Acute (3) Tobacco abuse Priority: Secondary Status: Chronic (4) HTN (hypertension) Priority: Secondary Status: Chronic Qualifiers: Hypertension type: other secondary hypertension Qualified Code(s): I15.8 - Other secondary hypertension (5) Sepsis Priority: Secondary Status: Resolved Qualifiers: Sepsis type: Streptococcus, unspecified Qualified Code(s): A40.9 - Streptococcal sepsis, unspecified; A40 - Streptococcal sepsis (6) Streptococcal pneumonia Priority: Secondary Status: Acute (7) Rheumatoid arthritis Priority: Secondary Status: Chronic Qualifiers: Rheumatoid arthritis location: hand Rheumatoid factor presence: with rheumatoid factor Laterality: bilateral Qualified Code(s): M05.741 - Rheumatoid arthritis with rheumatoid factor of right hand without organ or systems involvement; M05.742 - Rheumatoid arthritis with rheumatoid factor of left hand without organ or systems involvement; M05.742 - Rheumatoid arthritis with rheumatoid factor of left hand without organ or systems involvement; M05.742 - Rheumatoid arthritis with rheumatoid factor of left hand without organ or systems involvement; M05.742 - Rheumatoid arthritis with rheumatoid factor of left hand without organ or systems involvement (8) Pyelonephritis Priority: Secondary Status: Acute - Discharge Medications Prescriptions: Oxycodone HCl [Oxaydo] 5 mg PO Q4HR PRN #10 tab PRN Reason: Pain Amoxicillin/Clavulanate [Augmentin] 500 mg PO BIDWM 10 Days #20 tablet Levofloxacin [Levaquin] 750 mg PO DAILY #4 tablet predniSONE [PredniSONE] See Taper PO DAILY #20 tablet Home Medications: Metoprolol XL (24 HR) Succ [Toprol Xl] 25 mg PO DAILY 01/30/16 [History] Albuterol Sulfate [Ventolin Hfa] 2 puff PO Q6HR PRN 04/14/17 [History] Guaifenesin [Mucinex] 1,200 mg PO BID 04/14/17 [History] Ipratropium/Albuterol Neb [Duoneb] 3 ml IH Q6HR 04/14/17 [History] Montelukast [Singulair] 10 mg PO DAILY 04/14/17 [History] Tiotropium [Spiriva] 18 mcg IH DAILY 04/14/17 [History] Alendronate Sodium [Fosamax] 70 mg PO QWEEK 04/15/17 [History] Budesonide/Formoterol 160/4.5 [Symbicort 160/4.5] 2 puff IH BIDR 04/15/17 [ History] Buspirone HCl [Buspar] 15 mg PO BID 04/15/17 [History] Cholecalciferol (Vitamin D3) [Vitamin D3] 10,000 unit PO 2XW 04/15/17 [History] Denosumab [Prolia (For Outpatient Infusion)] 80 mg SQ Q6M 04/15/17 [History] DiphenhydraMINE [Benadryl] 25 mg PO Q8HR PRN 04/15/17 [History] Lisinopril [Zestril] 5 mg PO DAILY 04/15/17 [History] Melatonin/Pyridoxine HCl (B6) [Melatonin 5 mg Tablet] 5 mg PO HS 04/15/17 [ History] Ondansetron HCl [Zofran] 4 mg PO TID PRN 04/15/17 [History] Polyethylene Glycol 3350 [MiraLAX] 17 gm PO DAILY 04/15/17 [History] Roflumilast [Daliresp] 500 mcg PO DAILY 04/15/17 [History] Esomeprazole Magnesium [Nexium] 40 mg PO DAILY #30 capsule. 04/19/17 [Rx] Ferrous Sulfate 325 mg PO BIDWM #60 tablet 04/19/17 [Rx] Oxycodone HCl [Oxaydo] 5 mg PO Q4HR PRN #12 tablet.orl 04/19/17 [Rx] Amoxicillin/Clavulanate [Augmentin] 500 mg PO BIDWM 10 Days #20 tablet 05/02/17 [Rx] Levofloxacin [Levaquin] 750 mg PO DAILY #4 tablet 05/02/17 [Rx] Oxycodone HCl [Oxaydo] 5 mg PO Q4HR PRN #10 tab 05/02/17 [Rx] predniSONE [PredniSONE] See Taper PO DAILY #20 tablet 05/02/17 [Rx] Allergies/Adverse Reactions: 3 Allergy/AdvReac Type Severity Reaction Status Date / Time acetaminophen [From Tylenol] Allergy Rash Verified 09/23/15 06:03 chlordiazepoxide Allergy Rash Verified 09/23/15 06:03 [From Librium] Procedures/tests Complete & Pending: Procedures Performed prior 72 hours Category Date Time Status EKG [ECG 12 lead ECG] [ECG] Stat Y 05/01/17 20:34 Ordered EV echocardiogram Routine Y 04/29/17 12:41 Completed Date of admission: 04/29/17 02:15 Primary care physician: PCP NONE Consults: 04/29/17 02:26 Consult to Spray Stainer [CONS] Routine Reason for SW Consult: lives at [facility] 04/29/17 11:03 Consult to Physical Therapy [CONS] Routine Comment: Evaluate, develop and implement POC Reason for Consult: ECF placement 04/29/17 11:06 Consult to Occupational Therapy [CONS] Routine Comment: Evaluate, develop and implement POC Reason for Consult: ECF Placement Discharging clinician: Dionisio Corea Anticipated date of discharge: 05/02/17 - Patient Status Disposition: Transfer SNF Condition: Fair Functional capacity at discharge: wheelchair bound Overall status at discharge: patient is progressing back to baseline - Discharge Instructions Follow Up With: NONE,PCP [Primary Care Provider] - Additional Instructions: Please complete your course of antibiotics until completion and follow up with her primary care physician after discharge. We highly encourage you to ambulate as you are able to with a walker. - Diet and Activity Activity: ambulate only with your walker, as per physical therapy, increase activity as tolerated, resume usual activities as tolerated, wear oxygen at all times Diet: advance to your usual diet Hospital course: Ms. Stark is a 57 year old female with past medical history of oxygen dependent COPD, hypertension, RA, anxiety presented from a SNF after being found hypoxic at 70% oxygen saturation. She was notably discharged from this facility for RSV and COPD exacerbation from April 14 to April 20. She is reportedly experiencing altered mental status during this time and history was unable to be obtained. She was placed on BiPAP which immediately improved her oxygen saturation. Upon presentation to the emergency department, she was done with tachycardic at 113, respiratory rate of 28, blood pressure of 91/69 and oxygen saturation up to 90% on nonrebreather. Labs were significant for a WBC of 43.0, which is possibly elevated due to steroid use on discharge, sodium of 133, potassium 3.1, lactic acid 2.1, BNP of 261. Arterial blood gas showed hypercapnic hypoxic respiratory acidosis which was compensated. Urinalysis was negative for infection, respiratory panel negative. Chest x-ray emergency department showing suspected vascular congestion with left basilar consolidation with possible superimposed pneumonia. She was admitted to medicine service for further evaluation and management of COPD exacerbation secondary to pneumonia. During course of hospital stay, patient gradually improved. She was initially started on vancomycin, Levaquin, cefepime for healthcare associated pneumonia. Urine culture for strep pneumonia came back positive and she was De escalated to Levaquin and cefepime. She received breathing treatments as well as steroids for her COPD and is now back at her baseline oxygen requirements of 4.5 L.Vital signs have improved back to within normal limits. White blood cell count returned wnl. Lactic acid was trended and normalized. On day of discharge, patient was medically stable and all her questions were answered. Her breathing requirements were back to baseline and she states that she was ready to discharge back to [facility]. Physical therapy and occupational therapy consulted and agree with placement to SNF. She will discharged with prednisone taper, Augmentin, Levaquin for her pneumonia.she was instructed to follow up with her primary care physician and ambulate as best she can her walker. She was instructed to return to emergency department if her symptoms should worsen. Discharged to SNF in stable medical condition. - Time Spent with Patient Total time spent providing and/or coordinating discharge services: 40 minutes - Constitutional Vitals: Temp Pulse Resp BP Pulse Ox 98.9 F 87 17 114/75 96 05/02/17 07:38 05/02/17 07:38 05/02/17 07:38 05/02/17 07:38 05/02/17 07:38 General appearance: Present: cooperative, A&O X 3, pleasant, no acute distress, answers questions appropriately Exam: Gen.: Vitals noted. No acute distress. AAOx3. Sitting up in bed and speaking in full sentences on 4.5 L of oxygen HEENT: PERRL/EOMI, oropharynx clear, Normocephalic, atraumatic Cardiac: RRR, no murmur, +S1/S2 Pulmonary: CTA bilaterally, no wheezes, rales or rhonchi, equal chest expansion. Diminished breath sounds bilaterally Abdomen: soft, nontender, BS noted, no guarding Back: Nontender throughout. Kyphotic. MSK: ROM intact, no joint swelling noted Extremities: no BLE edema, nontender calf, no cyanosis or clubbing Neuro: A&Ox3, moves all extremities, no focal deficits Psych: Appropriate mood and behavior <Luis Cordova - Last Filed: 05/02/17 18:05> Date of Encounter: 05/02/17 - Discharge Diagnosis (1) Streptococcal pneumonia Status: Acute (2) Acute and chronic respiratory failure with hypoxia Status: Acute (3) Acute exacerbation of chronic obstructive airways disease Status: Acute (4) Rheumatoid arthritis Status: Chronic Qualifiers: Rheumatoid arthritis location: hand Rheumatoid factor presence: with rheumatoid factor Laterality: bilateral Qualified Code(s): M05.741 - Rheumatoid arthritis with rheumatoid factor of right hand without organ or systems involvement; M05.742 - Rheumatoid arthritis with rheumatoid factor of left hand without organ or systems involvement; M05.742 - Rheumatoid arthritis with rheumatoid factor of left hand without organ or systems involvement; M05.742 - Rheumatoid arthritis with rheumatoid factor of left hand without organ or systems involvement; M05.742 - Rheumatoid arthritis with rheumatoid factor of left hand without organ or systems involvement (5) Sepsis Status: Resolved Qualifiers: Sepsis type: Streptococcus, unspecified Qualified Code(s): A40.9 - Streptococcal sepsis, unspecified; A40 - Streptococcal sepsis (6) Hypercapnic respiratory failure Status: Acute Qualifiers: Chronicity: acute on chronic Qualified Code(s): J96.22 - Acute and chronic respiratory failure with hypercapnia (7) Pyelonephritis Status: Acute Procedures/tests Complete & Pending: Procedures Performed prior 72 hours Category Date Time Status EKG [ECG 12 lead ECG] [ECG] Stat Y 05/01/17 20:34 Ordered Date of admission: 04/29/17 02:15 Primary care physician: PCP NONE Consults: 04/29/17 02:26 Consult to Spray Stainer [CONS] Routine Reason for SW Consult: lives at [facility] 04/29/17 11:03 Consult to Physical Therapy [CONS] Routine Comment: Evaluate, develop and implement POC Reason for Consult: ECF placement 04/29/17 11:06 Consult to Occupational Therapy [CONS] Routine Comment: Evaluate, develop and implement POC Reason for Consult: ECF Placement Hospital course: Ms. Stark is a 57 year old female - Time Spent with Patient Total time spent providing and/or coordinating discharge services: - Constitutional Vitals: Temp Pulse Resp BP Pulse Ox 98.2 F 95 14 135/84 96 05/02/17 11:56 05/02/17 11:56 05/02/17 11:56 05/02/17 11:56 05/02/17 11:56 - Attending Attestation I examined this patient and my medical decision-making was reviewed with the Resident Physician Dr. Corea. I agree with the documented findings, disposition and treatment plan as described except to the extent set forth below. Ms. Shea is a 57-year-old female with a past medical history of COPD oxygen dependent, hypertension, RA, back surgery, and anxiety is presenting from a half-way facility by squad after being found be hypoxic at 70%. currently she is on 4 lit NC O2 which is her baseline. She states she is feeling better now. Denied any CP. Gen: A, A, O x 3 Chest: Ronchi + Rales+ coarse BS + junky secretions+ Heart: S1SS2+ Tachycardia a/p 1. Acute on chronic hypoxic resp failure 2. Acute on chronic hypercapneic resp failure 3. MLL Pneumonia - Strep pneumonia 4. Severe Sepsis - elevated WBC + tachycardia + Source of Inf as PNA Improved switched to PO Abx . Levaquin total 7 days, Augmentin - 10 days 5. Pyelonephritis - on CTA of Abd UA - benign cont empirical abx 6. Pleursl effusion / Pulm edema due to PNA resumed home diuretics Medically stable to d/c to ECF today
[2017-05-02] MEDS: MethylPREDNISolone 40 MG/ML VIAL IVP SCH (09:13)
[2017-05-02] MEDS: Budesonide/Formoterol 160/4.5 MDI IH SCH (10:36)
--- NOTE | 2017-05-02 11:17 | Physician Discharge Referral ---
ExtendedCare Referral Info Transfer To: [facility] Provider in Charge after Transfer: PCP Institutional Level of Care: Skilled - Diagnosis (1) Acute and chronic respiratory failure with hypoxia Priority: Primary Status: Acute (2) Acute exacerbation of chronic obstructive airways disease Priority: Secondary Status: Acute (3) Tobacco abuse Priority: Secondary Status: Chronic (4) HTN (hypertension) Priority: Secondary Status: Chronic (5) Sepsis Priority: Secondary Status: Resolved (6) Streptococcal pneumonia Priority: Secondary Status: Acute (7) Rheumatoid arthritis Priority: Secondary Status: Chronic (8) Pyelonephritis Priority: Secondary Status: Acute Prognosis: Fair Aware of Diagnosis: Patient Aware of Prognosis: Patient - Transfer Medications Prescriptions: Amoxicillin/Clavulanate [Augmentin] 500 mg PO BIDWM 10 Days #20 tablet Levofloxacin [Levaquin] 750 mg PO DAILY #4 tablet predniSONE [PredniSONE] See Taper PO DAILY #20 tablet Home Medications: Metoprolol XL (24 HR) Succ [Toprol Xl] 25 mg PO DAILY 01/30/16 [History] Albuterol Sulfate [Ventolin Hfa] 2 puff PO Q6HR PRN 04/14/17 [History] Guaifenesin [Mucinex] 1,200 mg PO BID 04/14/17 [History] Ipratropium/Albuterol Neb [Duoneb] 3 ml IH Q6HR 04/14/17 [History] Montelukast [Singulair] 10 mg PO DAILY 04/14/17 [History] Tiotropium [Spiriva] 18 mcg IH DAILY 04/14/17 [History] Alendronate Sodium [Fosamax] 70 mg PO QWEEK 04/15/17 [History] Budesonide/Formoterol 160/4.5 [Symbicort 160/4.5] 2 puff IH BIDR 04/15/17 [ History] Buspirone HCl [Buspar] 15 mg PO BID 04/15/17 [History] Cholecalciferol (Vitamin D3) [Vitamin D3] 10,000 unit PO 2XW 04/15/17 [History] Denosumab [Prolia (For Outpatient Infusion)] 80 mg SQ Q6M 04/15/17 [History] DiphenhydraMINE [Benadryl] 25 mg PO Q8HR PRN 04/15/17 [History] Lisinopril [Zestril] 5 mg PO DAILY 04/15/17 [History] Melatonin/Pyridoxine HCl (B6) [Melatonin 5 mg Tablet] 5 mg PO HS 04/15/17 [ History] Ondansetron HCl [Zofran] 4 mg PO TID PRN 04/15/17 [History] Polyethylene Glycol 3350 [MiraLAX] 17 gm PO DAILY 04/15/17 [History] Roflumilast [Daliresp] 500 mcg PO DAILY 04/15/17 [History] Esomeprazole Magnesium [Nexium] 40 mg PO DAILY #30 capsule. 04/19/17 [Rx] Ferrous Sulfate 325 mg PO BIDWM #60 tablet 04/19/17 [Rx] Oxycodone HCl [Oxaydo] 5 mg PO Q4HR PRN #12 tablet.orl 04/19/17 [Rx] Amoxicillin/Clavulanate [Augmentin] 500 mg PO BIDWM 10 Days #20 tablet 05/02/17 [Rx] Levofloxacin [Levaquin] 750 mg PO DAILY #4 tablet 05/02/17 [Rx] predniSONE [PredniSONE] See Taper PO DAILY #20 tablet 05/02/17 [Rx] Allergies/Adverse Reactions: 3 Allergy/AdvReac Type Severity Reaction Status Date / Time acetaminophen [From Tylenol] Allergy Rash Verified 09/23/15 06:03 chlordiazepoxide Allergy Rash Verified 09/23/15 06:03 [From Librium] - Respiratory Orders Oxygen / L per min (4.5) Smoking Cessation: Smoking cessation has been advised. For more information, call the [place] Tobacco Quit Line at 8-423-IPHG-NOW. - Mobility Orders Ambulate - Rehabiliation Orders Rehab Potential: Fair Rehab Orders: Evaluation for Physical Therapy, Evaluation for Occupational Therapy CERTIFICATION: I certify that the transfer of the above named patient to an Extended Care Facility is necessary for the continuing treatment of the diagnosis listed. The above information is true and accurate reflection of patient's current condition. Confidential - Redisclosure prohibited without a patient's written consent.
[2017-05-02 11:58] VITALS: BP 135/84
== END 2017-05-02 14:45 | DRG 720 ==
LOC: 2NNU 17:04 → EMEROO 17:04 → 2NNU 04-29 00:59 → 3ANU 04-30 18:59
PROVIDERS: ADMIT Internal Medicine; ATTEND Family Medicine

== ENCOUNTER 2017-05-13 12:13 | Inpatient (IN) ==
[2017-05-13] MEDS ORDERED: Levofloxacin 750 MG/150 ML 750 MG/150 ML BAG IVPB ONE (12:20)
[2017-05-13] MEDS ORDERED: Piperacillin/Tazobactam 3.375 GM in Water for inj. (sterile) 20 ML IVP ONE (12:21)
[2017-05-13] MEDS ORDERED: 0.9 % Sodium Chloride 1,000 ML ONE (12:22)
[2017-05-13] MEDS ORDERED: Vancomycin 1,000 MG in D5% in Water 250 ML IVPB ONE (12:22)
[2017-05-13] MEDS ORDERED: methylPREDNISolone 125 MG/2 ML VIAL IVP ONE (12:26)
[2017-05-13] MEDS ORDERED: Ipratropium/Albuterol Neb 3 ML IH ONE (12:26)
--- NOTE | 2017-05-13 12:26 | Emergency Department Note ---
START Narrative - START START: I examined this patient and my medical decision-making was reviewed with the Resident Physician. I agree with the documented findings, disposition and treatment plan as described except to the extent set forth below. 57 year old female presnt to the ED via EMS from the custodial who is DNR but not DNI. Efrain was hypotensive with pressures of 50/90s in addition to tachycardiac at 120s, and hypoxic to 84%. Efrain does not wear oxygen at custodial but was most recently admitted to the hospital for DORIS on 04/29. Efrain appears to be altered and likley septic. There is report that her temperature was 103, rectal temp here is 98. She is tachycardic to 102 and hypoxic to 88% on RA. We have placed her on bipap and will start sepsis protocol with 30ml/kg IVF resusitation, my thought are that she will be fluid repsonsive. With her recent admission to the hospital I am concerned for HCP vs. PE. We will do a CTA chest to rule out both. Also obtain a influenza swab. IF efrain is not responsive to fluid that we will placed a central line and stat norepi. she will likely be admitted to step down or ICU. Prophlyatica ABX have been started for HCAP
[2017-05-13] MEDS ORDERED: Ipratropium/Albuterol Neb 3 ML ONE (12:28)
[2017-05-13] MEDS: 0.9 % Sodium Chloride 1,000 ML IVC SCH ×2 (12:30→13:30)
[2017-05-13 12:39] LABS: Bilirubin,Urine Negative (Negative); Blood,Urine Trace (Negative); Clarity,Urine Clear (Clear); Color,Urine Yellow (Yellow); Glucose,Urine (UA) Normal (Normal); Ketones,Urine Trace mg/dL (Negative); Leukocyte Esterase,Urine Negative (Negative); Nitrite,Urine Negative (Negative); Protein,Urine Trace mg/dL (Neg-Trace); Specific Gravity,Urine 1.018 (1.010-1.025); Urobilinogen,Urine Normal (Normal)
[2017-05-13 12:40] LABS: ABG Base Excess 8 mEq/L (-2 to 3); ABG HCO3 38 mEq/L (21-27); ABG Oxygen Saturation 92 % (95-98); ABG PCO2 84 mmHg (35-45); ABG PH 7.26 pH Units (7.32-7.45); ABG PO2 78 mmHg (85-104); ABG TCO2 40 mEq/L (20-26)
[2017-05-13 12:42] LABS: Bacteria,Urine None Seen per hpf (None-Few); Hyaline Casts,Urine None Seen per lpf (None-Few); Squamous Epithelial Cell,Urine Many per lpf (None-Few); WBC,Urine 0-3 per hpf (0-3)
[2017-05-13 13:01] LABS: INR 1.2
[2017-05-13 13:03] LABS: Hematocrit 35.9 % (35.3-44.9); Mean Corpuscular HGB Conc 27.9 g/dL (31.6-35.5); Mean Corpuscular Hemoglobin 24.1 pg (28.0-33.3); Mean Corpuscular Volume 86.5 fL (83.0-100.0); Mean Platelet Volume 8.9 fL (9.4-12.4); Nucleated Red Blood Cells 0.1 /100 WBC (0); Platelet Count 354 K/mcL (140-400); Red Blood Count 4.15 M/mcL (3.82-4.97); Red Cell Distribution Width 17.7 % (11.5-14.5)
[2017-05-13 13:04] LABS: Activated Partial Thrombo Time 29.7 Seconds (26.0-36.0)
[2017-05-13 13:22] LABS: Alanine Aminotransferase 13 Units/L (7-52); Albumin 3.2 g/dL (3.5-5.7); Albumin/Globulin Ratio 1.1 (1.1-2.2); Alkaline Phosphatase 51 Units/L (34-104); Aspartate Amino Transferase 10 Units/L (13-39); BUN/Creatinine Ratio 20 (6-26); Bilirubin,Direct 0.1 mg/dL (0.0-0.2); Bilirubin,Indirect 0.2 mg/dL (0.0-1.2); Bilirubin,Total 0.3 mg/dL (0.3-1.0); Blood Urea Nitrogen 8 mg/dL (6-20); Calcium 8.4 mg/dL (8.6-10.3); Carbon Dioxide 37 mEq/L (23-29); Chloride 95 mEq/L (98-107); Globulin 2.9 g/dL (2.4-3.5); Glucose 120 mg/dL (70-105); Lipase 4 Units/L (11-82); Magnesium 2.1 mg/dL (1.6-2.6); Osmolality,Calculated 278 (280-300); Phosphorous 2.9 mg/dL (2.7-4.5); Potassium 4.6 mEq/L (3.5-5.1); Sodium 134 mEq/L (136-145); Total Protein 6.1 g/dL (6.4-8.9); eGFR For African Americans > 60 (> 60); eGFR For Non-African Americans > 60 (> 60)
--- NOTE | 2017-05-13 13:22 | Emergency Department Note ---
Disposition Clinical Impression: Hypercarbia, Respiratory acidosis Acute respiratory failure Qualifiers: Respiratory failure complication: hypoxia and hypercapnia Qualified Code(s): J96.01 - Acute respiratory failure with hypoxia; J96.02 - Acute respiratory failure with hypercapnia; J96.02 - Acute respiratory failure with hypercapnia; J96.02 - Acute respiratory failure with hypercapnia Hypotension Qualifiers: Hypotension type: unspecified hypotension type Qualified Code(s): I95.9 - Hypotension, unspecified Disposition: Admitted As Inpatient Condition: Critical Time of Disposition: 18:39 SOB HPI - General Chief Complaint: ED Shortness of Breath/Dyspnea Stated Complaint: hypotension Time Seen by Provider: 05/13/17 12:17 Source: patient, EMS Limitations: no limitations Nursing Notes Reviewed: Yes Vital Signs Reviewed: Yes - History of Present Illness Mrs. Stark, 57-year-old female, presents from [facility] via EMS for evaluation of low blood pressure and hypoxia. [facility] reported systolic blood pressure to 50s and hypoxia to 81% SPO2 on 4 L nasal cannula. She reportedly had temp of 104 yesterday. Per EMS, patient is been in the 90s on a oxygen mask. On arrival, patient is awake but somnolent. PMH: Hypertension, rheumatoid arthritis, COPD - Related Data Home Medications Medication Instructions Recorded Confirmed Metoprolol XL (24 HR) Succ [Toprol 25 mg PO DAILY 01/30/16 05/13/17 Xl] Guaifenesin [Mucinex] 1,200 mg PO BID 04/14/17 05/13/17 Montelukast [Singulair] 10 mg PO DAILY 04/14/17 05/13/17 Tiotropium [Spiriva] 18 mcg IH DAILY 04/14/17 05/13/17 Alendronate Sodium [Fosamax] 70 mg PO QWEEK 04/15/17 05/13/17 Budesonide/Formoterol 160/4.5 2 puff IH BIDR 04/15/17 05/13/17 [Symbicort 160/4.5] Buspirone HCl [Buspar] 15 mg PO BID 04/15/17 05/13/17 Cholecalciferol (Vitamin D3) 10,000 unit PO 2XW 04/15/17 05/13/17 [Vitamin D3] Denosumab [Prolia (For Outpatient 80 mg SQ Q6M 04/15/17 05/13/17 Infusion)] Lisinopril [Zestril] 5 mg PO DAILY 04/15/17 05/13/17 Melatonin/Pyridoxine HCl (B6) 5 mg PO HS 04/15/17 05/13/17 [Melatonin 5 mg Tablet] Polyethylene Glycol 3350 [MiraLAX] 17 gm PO DAILY 04/15/17 05/13/17 Roflumilast [Daliresp] 500 mcg PO DAILY 04/15/17 05/13/17 ALPRAZolam [Xanax 1 MG Tablet] 1 mg PO TID PRN 05/13/17 05/13/17 Albuterol Neb [AccuNeb] 0.63 mg IH ONCE PRN 05/13/17 05/13/17 Oseltamivir [Tamiflu] 75 mg PO DAILY 05/13/17 05/13/17 Previous Rx's Medication Instructions Recorded Esomeprazole Magnesium [Nexium] 40 mg PO DAILY #30 capsule. 04/19/17 Ferrous Sulfate 325 mg PO BIDWM #60 tablet 04/19/17 Oxycodone HCl [Oxaydo] 5 mg PO Q4HR PRN #12 tablet.orl 04/19/17 Allergies Allergy/AdvReac Type Severity Reaction Status Date / Time acetaminophen [From Tylenol] Allergy Rash Verified 09/23/15 06:03 chlordiazepoxide Allergy Rash Verified 09/23/15 06:03 [From Librium] Limitations: ROS unobtainable due to patients medical condition Past Medical History - Past Medical History Medical history: Reports: non-contributory, COPD, hypertension, RA Surgical history: Reports: non-contributory Psychiatric history: Reports: anxiety [employer] INSPECTOR history: Reports: no WATCH [employer]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 Appears older than stated age. HEENT: No facial asymmetry. Head is normocephalic and atraumatic. PERRLA, EOMI. mucosa dry. Trachea midline. Cardiovascular: Heart regular tachycardic rate and regular rhythm without clicks , rubs, gallops, or murmurs. No JVD. PMI nondisplaced. Respiratory: Symmetric chest rise with poor respiratory effort. Bilateral breath sounds are globally diminished with left lower lobe wheeze scant crackles. Abdomen: Bowel sounds present normoactive x-4 quadrants. Abdomen is soft, nondistended, and nontender. Musculoskeletal: Spontaneously moving all extremities with contractures at all joints most notably at fingers and toes. Neuro: Awake but not alert. GCS 15. Psych: Patient's affect is appropriate for situation. - General Limitations: no limitations General appearance: alert Course Course Narrative: Patient presents concerning for sepsis from currently unknown source. Suspect pulmonary or urinary. Will fluid rehydrate, placed on BiPAP, and workup accordingly. Patient has leukocytosis at 13.9. She has anemia, this is chronic consistent with her baseline hemoglobin. No renal dysfunction. ABGs concerning for hypercarbia in the context of respiratory acidosis with partial metabolic compensation After blood cultures, patient placed on empiric Vanco and Zosyn. CT head is unremarkable. Chest x-ray shows left sided opacities concerning for atelectasis versus pneumonia versus aspiration versus pleural effusion. Also shows age indeterminate left-sided rib fractures. No recent history of trauma. CTA chest negative for acute PE. Does show worsening bilateral airspace disease with new apical and right lower lobe atelectasis consistent with aspiration pneumonitis in the context of increased tracheobronchial secretions and distal bronchial mucous plug. Patient's blood pressures have improved with 3 L bolus as well as a single 10 mcg push dose bolus of epinephrine with systolic in the low 120s. They remain soft in the mid 90s systolic. Patient requires BiPAP. She desats into the 70s rather quickly when not on BiPAP. While on BiPAP,her mentation has improved and she is now alert and oriented and able to answer questions appropriately and understands the situation. I discussed the patient with the barge pilot, Dr. Camarena, who agrees to accept the patient to the ICU with a repeat ABG and central line placement. Under Perry, he is concerned that the patient's blood pressure is only in the 90s after 3 L fluid resuscitation and we are moving toward the need for pressors hence the need for central line. Right IJ central line placed without issue. Nor epi drip started. Repeat ABG concerning in that she is slightly more acidotic with pH 7.20. She does not have lactic acidemia. We will provide one amp of bicarbonate. Head CT 05/13/17 12:18 IMPRESSION: No acute intracranial abnormality. Mild diffuse atrophic changes with findings suggesting chronic microvascular ischemia D/ / Jonathan Muse MD / Jonathan Muse MD Interpreting Provider: Jonathan Muse MD Chest X-Ray 05/13/17 12:19 IMPRESSION: Left mid and left lower lung opacities may represent combination of atelectasis, pneumonia, aspiration, and/or pleural effusion. Recommend radiographic follow-up to complete resolution. Age indeterminate left-sided rib fractures. These appears more conspicuous than previous examination. Correlate with a history of recent injury. D/ / Edgardo Sims MD / Edgardo Sism MD Interpreting Provider: Edgardo Sims MD Chest CTA 05/13/17 12:24 IMPRESSION: Negative for acute pulmonary embolism to the segmental level. Worsening airspace disease bilaterally with new multifocal airspace opacities involving the bilateral upper lobes and right lower lobe and progressive left lung volume loss/atelectasis. These features are highly concerning for aspiration pneumonitis, especially considering tracheobronchial secretions and distal bronchial mucoid impaction. Mild increase in size of small left and trace right pleural effusions. There may be a component of mild pulmonary edema. Emphysema. D/ / Alen Norton / Alen Norton Interpreting Provider: Alen Norton Vital Signs Temperature 98.0 F 05/13/17 12:15 Pulse Rate 103 05/13/17 12:15 Respiratory Rate 24 05/13/17 12:15 Blood Pressure 83/53 05/13/17 12:15 O2 Sat by Pulse Oximetry 88 05/13/17 12:15 Temperature 98.0 F 05/13/17 18:24 Pulse Rate 89 01/26/18 18:24 Respiratory Rate 26 05/13/17 18:24 Blood Pressure 126/84 05/13/17 18:24 O2 Sat by Pulse Oximetry 98 05/13/17 18:24 Oxygen Delivery Oxygen Delivery Bipap Procedures - Central Line Placement Right IJ Central Line Inserted*: Yes Central Line Insertion: emergent Consent Obtained: written consent Procedural Pause: verify patient name and date of , timeout performed per policy, artis and assess the site, assemble equipment and verify supplies, perform hand hygiene Patient Placed on Monitor/Pulse Ox: Yes During the Procedure: clinician is wearing sterile gloves, cap, mask,& gown during insertion, sterile field and sterile technique are maintained, patient's face is covered with drape or mask and wearing a cap, everyone in room is wearing a mask Central Line Prep: Povidone-Iodine 1% Prep the Procedure Site: apply chloraprep to the skin using a back and forth scrubbing motion, apply chloraprep for 30 seconds (upper body), 1-2 min ( femoral sites), drape the patient with a full body drape Local Anesthetic: lidocaine 1% Amount of anesthesia used (mL): 5 Ultrasound Used for Placement: Yes Central Line Lumen Inserted: triple Post Procedure: sutured in place, good blood return, all ports aspirated, flushed, capped, sterile dressing applied, guide wire removed and visualized, dressing is dated Post Procedure X-Ray: tip of catheter in good position, no pneumothorax seen Patient Tolerated Procedure: well, no complications Complications: none Name of Clinician Inserting Central Line: Kirk Ramos Clinician Assisting/Completing Checklist: Dr. Chata Enriquez, Dr. Lanza Date: 05/13/17 Time: 16:45 Shortness of Breath/Dyspnea - Medical Records Medical records reviewed: Yes I reviewed the patient's medical records. - Lab Data Lab results reviewed: Yes I reviewed the patient's lab results. Result diagrams: 05/13/17 12:40 05/13/17 12:40 Lab Results 05/13/17 05/13/17 05/13/17 Range/Units 12:20 12:35 12:40 WBC 13.9 H D (4.3-11.1) K/mcL RBC 4.15 (3.82-4.97) M/mcL Hgb 10.0 L (11.5-15.4) g/dL Hct 35.9 (35.3-44.9) % MCV 86.5 (83.0-100.0) fL MCH 24.1 L (28.0-33.3) pg MCHC 27.9 L (31.6-35.5) g/dL RDW 17.7 H (11.5-14.5) % Plt Count 354 (140-400) K/mcL MPV 8.9 L (9.4-12.4) fL Seg Neutrophils % 64.0 % Band Neutrophils % 24.0 H (0-4) % Lymphocytes % 2.0 % Monocytes % 10.0 % Neutrophils # 12.2 H (1.6-8.9) K/mcL Lymphocytes # 0.3 L (0.6-4.6) K/mcL Monocytes # 1.4 H (0.0-1.3) K/mcL Nucleated RBCs/100 WBC 0.1 H (0) /100 WBC Platelet Estimate Normal (Normal) PT (9.4-12.1) Seconds INR APTT (26.0-36.0) Seconds ABG pH 7.26 L (7.32-7.45) pH Units ABG pCO2 84 H* (35-45) mmHg ABG pO2 78 L (85-104) mmHg ABG HCO3 38 H (21-27) mEq/L ABG Total CO2 40 H (20-26) mEq/L ABG O2 Saturation 92 L (95-98) % ABG Base Excess 8 H (-2 to 3) mEq/L Sodium (136-145) mEq/L Potassium (3.5-5.1) mEq/L Chloride (98-107) mEq/L Carbon Dioxide (23-29) mEq/L BUN (6-20) mg/dL Creatinine (0.60-1.20) mg/dL Est GFR ( Amer) (> 60) Est GFR (Non-Af Amer) (> 60) BUN/Creatinine Ratio (6-26) Glucose (70-105) mg/dL Calculated Osmolality (280-300) Lactic Acid (0.5-2.2) mmol/L Calcium (8.6-10.3) mg/dL Phosphorus (2.7-4.5) mg/dL Magnesium (1.6-2.6) mg/dL Total Bilirubin (0.3-1.0) mg/dL Direct Bilirubin (0.0-0.2) mg/dL Indirect Bilirubin (0.0-1.2) mg/dL AST (13-39) Units/L ALT (7-52) Units/L Alkaline Phosphatase (34-104) Units/L Troponin I (< 0.04) ng/mL B-Natriuretic Peptide (Less than 100) pg/mL Serum Total Protein (6.4-8.9) g/dL Albumin (3.5-5.7) g/dL Globulin (2.4-3.5) g/dL Albumin/Globulin Ratio (1.1-2.2) Lipase (11-82) Units/L Random Cortisol mcg/dl Urine Color Yellow (Yellow) Urine Clarity Clear (Clear) Urine pH 6.0 (5.0-8.0) pH Units Ur Specific Ava 1.018 (1.010-1.025) Urine Protein Trace (Neg-Trace) mg/dL Urine Glucose (UA) Normal (Normal) mg/dL Urine Ketones Trace H (Negative) mg/dL Urine Blood Trace H (Negative) Urine Nitrite Negative (Negative) Urine Bilirubin Negative (Negative) Urine Urobilinogen Normal (Normal) mg/dL Ur Leukocyte Esterase Negative (Negative) Urine Microscopic RBC 3-5 H (0-3) per hpf Urine Microscopic WBC 0-3 (0-3) per hpf Ur Squamous Epith Cells Many H (None-Few) per lpf Urine Bacteria None Seen (None-Few) per hpf Hyaline Casts None Seen (None-Few) per lpf Ur Culture Indicated? NO (NO) Person Notif of Mindy RAMOS Blood Type Antibody Screen 05/13/17 05/13/17 05/13/17 Range/Units 12:40 12:40 12:40 WBC (4.3-11.1) K/mcL RBC (3.82-4.97) M/mcL Hgb (11.5-15.4) g/dL Hct (35.3-44.9) % MCV (83.0-100.0) fL MCH (28.0-33.3) pg MCHC (31.6-35.5) g/dL RDW (11.5-14.5) % Plt Count (140-400) K/mcL MPV (9.4-12.4) fL Seg Neutrophils % % Band Neutrophils % (0-4) % Lymphocytes % % Monocytes % % Neutrophils # (1.6-8.9) K/mcL Lymphocytes # (0.6-4.6) K/mcL Monocytes # (0.0-1.3) K/mcL Nucleated RBCs/100 WBC (0) /100 WBC Platelet Estimate (Normal) PT 13.0 H (9.4-12.1) Seconds INR 1.2 APTT 29.7 (26.0-36.0) Seconds ABG pH (7.32-7.45) pH Units ABG pCO2 (35-45) mmHg ABG pO2 (85-104) mmHg ABG HCO3 (21-27) mEq/L ABG Total CO2 (20-26) mEq/L ABG O2 Saturation (95-98) % ABG Base Excess (-2 to 3) mEq/L Sodium 134 L (136-145) mEq/L Potassium 4.6 (3.5-5.1) mEq/L Chloride 95 L (98-107) mEq/L Carbon Dioxide 37 H (23-29) mEq/L BUN 8 (6-20) mg/dL Creatinine 0.40 L (0.60-1.20) mg/dL Est GFR ( Amer) > 60 (> 60) Est GFR (Non-Af Amer) > 60 (> 60) BUN/Creatinine Ratio 20 (6-26) Glucose 120 H (70-105) mg/dL Calculated Osmolality 278 L (280-300) Lactic Acid 0.4 L (0.5-2.2) mmol/L Calcium 8.4 L (8.6-10.3) mg/dL Phosphorus 2.9 (2.7-4.5) mg/dL Magnesium 2.1 (1.6-2.6) mg/dL Total Bilirubin 0.3 (0.3-1.0) mg/dL Direct Bilirubin 0.1 (0.0-0.2) mg/dL Indirect Bilirubin 0.2 (0.0-1.2) mg/dL AST 10 L (13-39) Units/L ALT 13 (7-52) Units/L Alkaline Phosphatase 51 (34-104) Units/L Troponin I (< 0.04) ng/mL B-Natriuretic Peptide (Less than 100) pg/mL Serum Total Protein 6.1 L (6.4-8.9) g/dL Albumin 3.2 L (3.5-5.7) g/dL Globulin 2.9 (2.4-3.5) g/dL Albumin/Globulin Ratio 1.1 (1.1-2.2) Lipase 4 L (11-82) Units/L Random Cortisol 21.5 mcg/dl Urine Color (Yellow) Urine Clarity (Clear) Urine pH (5.0-8.0) pH Units Ur Specific Ava (1.010-1.025) Urine Protein (Neg-Trace) mg/dL Urine Glucose (UA) (Normal) mg/dL Urine Ketones (Negative) mg/dL Urine Blood (Negative) Urine Nitrite (Negative) Urine Bilirubin (Negative) Urine Urobilinogen (Normal) mg/dL Ur Leukocyte Esterase (Negative) Urine Microscopic RBC (0-3) per hpf Urine Microscopic WBC (0-3) per hpf Ur Squamous Epith Cells (None-Few) per lpf Urine Bacteria (None-Few) per hpf Hyaline Casts (None-Few) per lpf Ur Culture Indicated? (NO) Person Notif of Crit Blood Type Antibody Screen 05/13/17 05/13/17 05/13/17 Range/Units 12:40 12:40 12:40 WBC (4.3-11.1) K/mcL RBC (3.82-4.97) M/mcL Hgb (11.5-15.4) g/dL Hct (35.3-44.9) % MCV (83.0-100.0) fL MCH (28.0-33.3) pg MCHC (31.6-35.5) g/dL RDW (11.5-14.5) % Plt Count (140-400) K/mcL MPV (9.4-12.4) fL Seg Neutrophils % % Band Neutrophils % (0-4) % Lymphocytes % % Monocytes % % Neutrophils # (1.6-8.9) K/mcL Lymphocytes # (0.6-4.6) K/mcL Monocytes # (0.0-1.3) K/mcL Nucleated RBCs/100 WBC (0) /100 WBC Platelet Estimate (Normal) PT (9.4-12.1) Seconds INR APTT (26.0-36.0) Seconds ABG pH (7.32-7.45) pH Units ABG pCO2 (35-45) mmHg ABG pO2 (85-104) mmHg ABG HCO3 (21-27) mEq/L ABG Total CO2 (20-26) mEq/L ABG O2 Saturation (95-98) % ABG Base Excess (-2 to 3) mEq/L Sodium (136-145) mEq/L Potassium (3.5-5.1) mEq/L Chloride (98-107) mEq/L Carbon Dioxide (23-29) mEq/L BUN (6-20) mg/dL Creatinine (0.60-1.20) mg/dL Est GFR ( Amer) (> 60) Est GFR (Non-Af Amer) (> 60) BUN/Creatinine Ratio (6-26) Glucose (70-105) mg/dL Calculated Osmolality (280-300) Lactic Acid (0.5-2.2) mmol/L Calcium (8.6-10.3) mg/dL Phosphorus (2.7-4.5) mg/dL Magnesium (1.6-2.6) mg/dL Total Bilirubin (0.3-1.0) mg/dL Direct Bilirubin (0.0-0.2) mg/dL Indirect Bilirubin (0.0-1.2) mg/dL AST (13-39) Units/L ALT (7-52) Units/L Alkaline Phosphatase (34-104) Units/L Troponin I < 0.03 (< 0.04) ng/mL B-Natriuretic Peptide 177 H (Less than 100) pg/mL Serum Total Protein (6.4-8.9) g/dL Albumin (3.5-5.7) g/dL Globulin (2.4-3.5) g/dL Albumin/Globulin Ratio (1.1-2.2) Lipase (11-82) Units/L Random Cortisol mcg/dl Urine Color (Yellow) Urine Clarity (Clear) Urine pH (5.0-8.0) pH Units Ur Specific Ava (1.010-1.025) Urine Protein (Neg-Trace) mg/dL Urine Glucose (UA) (Normal) mg/dL Urine Ketones (Negative) mg/dL Urine Blood (Negative) Urine Nitrite (Negative) Urine Bilirubin (Negative) Urine Urobilinogen (Normal) mg/dL Ur Leukocyte Esterase (Negative) Urine Microscopic RBC (0-3) per hpf Urine Microscopic WBC (0-3) per hpf Ur Squamous Epith Cells (None-Few) per lpf Urine Bacteria (None-Few) per hpf Hyaline Casts (None-Few) per lpf Ur Culture Indicated? (NO) Person Notif of Crit Blood Type B POSITIVE Antibody Screen NEGATIVE 05/13/17 Range/Units 16:47 WBC (4.3-11.1) K/mcL RBC (3.82-4.97) M/mcL Hgb (11.5-15.4) g/dL Hct (35.3-44.9) % MCV (83.0-100.0) fL MCH (28.0-33.3) pg MCHC (31.6-35.5) g/dL RDW (11.5-14.5) % Plt Count (140-400) K/mcL MPV (9.4-12.4) fL Seg Neutrophils % % Band Neutrophils % (0-4) % Lymphocytes % % Monocytes % % Neutrophils # (1.6-8.9) K/mcL Lymphocytes # (0.6-4.6) K/mcL Monocytes # (0.0-1.3) K/mcL Nucleated RBCs/100 WBC (0) /100 WBC Platelet Estimate (Normal) PT (9.4-12.1) Seconds INR APTT (26.0-36.0) Seconds ABG pH 7.20 L* (7.32-7.45) pH Units ABG pCO2 80 H* (35-45) mmHg ABG pO2 61 L (85-104) mmHg ABG HCO3 31 H (21-27) mEq/L ABG Total CO2 34 H (20-26) mEq/L ABG O2 Saturation 84 L (95-98) % ABG Base Excess 2 (-2 to 3) mEq/L Sodium (136-145) mEq/L Potassium (3.5-5.1) mEq/L Chloride (98-107) mEq/L Carbon Dioxide (23-29) mEq/L BUN (6-20) mg/dL Creatinine (0.60-1.20) mg/dL Est GFR ( Amer) (> 60) Est GFR (Non-Af Amer) (> 60) BUN/Creatinine Ratio (6-26) Glucose (70-105) mg/dL Calculated Osmolality (280-300) Lactic Acid (0.5-2.2) mmol/L Calcium (8.6-10.3) mg/dL Phosphorus (2.7-4.5) mg/dL Magnesium (1.6-2.6) mg/dL Total Bilirubin (0.3-1.0) mg/dL Direct Bilirubin (0.0-0.2) mg/dL Indirect Bilirubin (0.0-1.2) mg/dL AST (13-39) Units/L ALT (7-52) Units/L Alkaline Phosphatase (34-104) Units/L Troponin I (< 0.04) ng/mL B-Natriuretic Peptide (Less than 100) pg/mL Serum Total Protein (6.4-8.9) g/dL Albumin (3.5-5.7) g/dL Globulin (2.4-3.5) g/dL Albumin/Globulin Ratio (1.1-2.2) Lipase (11-82) Units/L Random Cortisol mcg/dl Urine Color (Yellow) Urine Clarity (Clear) Urine pH (5.0-8.0) pH Units Ur Specific Ava (1.010-1.025) Urine Protein (Neg-Trace) mg/dL Urine Glucose (UA) (Normal) mg/dL Urine Ketones (Negative) mg/dL Urine Blood (Negative) Urine Nitrite (Negative) Urine Bilirubin (Negative) Urine Urobilinogen (Normal) mg/dL Ur Leukocyte Esterase (Negative) Urine Microscopic RBC (0-3) per hpf Urine Microscopic WBC (0-3) per hpf Ur Squamous Epith Cells (None-Few) per lpf Urine Bacteria (None-Few) per hpf Hyaline Casts (None-Few) per lpf Ur Culture Indicated? (NO) Person Notif of Crit Blood Type Antibody Screen - Radiology Data Radiology results reviewed: Yes I reviewed the patient's radiology results. - EKG Data EKG attestation: Yes I reviewed and interpreted this EKG. EKG results narrative: EKG dated 2015 rate 22 at 12:30 and interpreted as sinus rhythm with a rate of 98. Normal axis. Nonspecific ST T changes. Compared to previous dated 2017 showing no acute ischemic changes comparison.
[2017-05-13 13:57] LABS: Lymphocytes # 0.3 K/mcL (0.6-4.6); Monocytes # 1.4 K/mcL (0.0-1.3); Neutrophils # 12.2 K/mcL (1.6-8.9); Platelet Estimate Normal (Normal)
[2017-05-13] MEDS ORDERED: 0.9 % Sodium Chloride 1,000 ML IVC ONE (14:14)
[2017-05-13] MEDS ORDERED: *HR* EPINEPHrine 1 MG/10 ML SYRINGE IVP ONE (14:59)
[2017-05-13 16:54] LABS: ABG Base Excess 2 mEq/L (-2 to 3); ABG HCO3 31 mEq/L (21-27); ABG Oxygen Saturation 84 % (95-98); ABG PCO2 80 mmHg (35-45); ABG PO2 61 mmHg (85-104); ABG TCO2 34 mEq/L (20-26)
[2017-05-13] MEDS: Norepinephrine 4 MG in D5% in Water 250 ML IVC SCH (17:22)
--- NOTE | 2017-05-13 18:20 | Pulmonology History & Physical ---
<Levon Brambila - Last Filed: 05/13/17 19:02> Date of Encounter: 05/13/17 Time of Encounter: 16:23 Assessment and Plan (1) Acute and chronic respiratory failure ([id number]) Current visit: No Status: Acute Chronic respiratory failure with acute decompensation with hypoxia and hypercapnia ABG: pH 7.26, pCO2 84, HCO3 38 Repeat ABG after BiPAP: pH 7.20, pCO2 80, HCO3 31 Repeat ABG again after further BiPAP support CXR and CTA shows worsening bilateral airspace disease with apical and right lower lobe atelectasis suspicious for aspiration pneumonitis Blood cultures drawn Start antimicrobials and steroids Qualifiers: Respiratory failure complication: hypoxia and hypercapnia Qualified Code(s) : J96.21 - Acute and chronic respiratory failure with hypoxia; J96.22 - Acute and chronic respiratory failure with hypercapnia; J96.22 - Acute and chronic respiratory failure with hypercapnia; J96.22 - Acute and chronic respiratory failure with hypercapnia (2) Aspiration pneumonia Current visit: Yes Status: Acute Concern for aspiration pneumonia with patient's functional status Start antimicrobials and respiratory support Qualifiers: Aspiration pneumonia type: unspecified Laterality: bilateral Lung location: lower lobe of lung Qualified Code(s): J69.0 - Pneumonitis due to inhalation of food and vomit (3) COPD (chronic obstructive pulmonary disease) Current visit: No Status: Acute Qualifiers: COPD type: unspecified COPD Qualified Code(s): J44.9 - Chronic obstructive pulmonary disease, unspecified (4) Chronic anemia Current visit: Yes Status: Acute (5) Hypocalcemia Current visit: Yes Status: Acute Likely related to some degree of malnutrition Continue to monitor (6) Rheumatoid arthritis Current visit: No Status: Chronic Qualifiers: Rheumatoid arthritis location: hand Rheumatoid factor presence: with rheumatoid factor Laterality: bilateral Qualified Code(s): M05.741 - Rheumatoid arthritis with rheumatoid factor of right hand without organ or systems involvement; M05.742 - Rheumatoid arthritis with rheumatoid factor of left hand without organ or systems involvement; M05.742 - Rheumatoid arthritis with rheumatoid factor of left hand without organ or systems involvement; M05.742 - Rheumatoid arthritis with rheumatoid factor of left hand without organ or systems involvement; M05.742 - Rheumatoid arthritis with rheumatoid factor of left hand without organ or systems involvement History of Present Illness Chief complaint: Dyspnea HPI: Ms. Stark is a 57 year old female with PMH of end-stage COPD, HTN, and RA presented to the ED from [facility] for hypotension and hypoxia. Per [facility] SBP in 50's and O2 sat at 81 on 4L O2 nasal cannula, and also had a temp of 104 yesterday. Pt was somnolent but awake in ED and O2 sat was 88 on presentation. BP was 80-90's/50-70's. The patient was placed on BiPAP and given 3L of fluid and epinephrine and vitals improved. CVC was placed in the right IJ and placement confirmed on CXR. The patient is currently on norepinephrine. The patient has had several hospitalizations and was just discharged on 04/29/17 for respiratory failure and COPD exacerbation. CXR and CTA shows worsening bilateral airspace disease with apical and right lower lobe atelectasis suspicious for aspiration pneumonitis. She reports that her breathing has been getting worse. We had a discussion with the patient about her wishes with care. She states that she does not want CPR, but would want intubated if needed and would like all other treatment. Past Med Surg Social Fam HX - Past Medical History Medical history: non-contributory, COPD, hypertension, RA Psychiatric history: anxiety - Past Surgical History Surgical History: non-contributory - Social History Smoking Status: Former smoker Smokeless Tobacco Status: No Alcohol use: none Drug use: none - Family History Father Living Status: Brother Hx Family Cardiac Disorders: Yes (HTN) Hx Family Respiratory Disorders: Yes (COPD) Hx Family Cancer: No Hx Family GI Disorders: No Hx Family Endocrine Disorder: No Hx Family Neuromuscular Disorders: No Hx Family Neurologic Disorders: No Hx Family HEENT Disorders: No Hx Family Autoimmune Disorders: No Medications and Allergies Metoprolol XL (24 HR) Succ [Toprol Xl] 25 mg PO DAILY 01/30/16 [History] Guaifenesin [Mucinex] 1,200 mg PO BID 04/14/17 [History] Montelukast [Singulair] 10 mg PO DAILY 04/14/17 [History] Tiotropium [Spiriva] 18 mcg IH DAILY 04/14/17 [History] Alendronate Sodium [Fosamax] 70 mg PO QWEEK 04/15/17 [History] Budesonide/Formoterol 160/4.5 [Symbicort 160/4.5] 2 puff IH BIDR 04/15/17 [ History] Buspirone HCl [Buspar] 15 mg PO BID 04/15/17 [History] Cholecalciferol (Vitamin D3) [Vitamin D3] 10,000 unit PO 2XW 04/15/17 [History] Denosumab [Prolia (For Outpatient Infusion)] 80 mg SQ Q6M 04/15/17 [History] Lisinopril [Zestril] 5 mg PO DAILY 04/15/17 [History] Melatonin/Pyridoxine HCl (B6) [Melatonin 5 mg Tablet] 5 mg PO HS 04/15/17 [ History] Polyethylene Glycol 3350 [MiraLAX] 17 gm PO DAILY 04/15/17 [History] Roflumilast [Daliresp] 500 mcg PO DAILY 04/15/17 [History] Esomeprazole Magnesium [Nexium] 40 mg PO DAILY #30 capsule. 04/19/17 [Rx] Ferrous Sulfate 325 mg PO BIDWM #60 tablet 04/19/17 [Rx] Oxycodone HCl [Oxaydo] 5 mg PO Q4HR PRN #12 tablet.orl 04/19/17 [Rx] ALPRAZolam [Xanax 1 MG Tablet] 1 mg PO TID PRN 05/13/17 [History] Albuterol Neb [AccuNeb] 0.63 mg IH ONCE PRN 05/13/17 [History] Oseltamivir [Tamiflu] 75 mg PO DAILY 05/13/17 [History] 3 Allergy/AdvReac Type Severity Reaction Status Date / Time acetaminophen [From Tylenol] Allergy Rash Verified 09/23/15 06:03 chlordiazepoxide Allergy Rash Verified 09/23/15 06:03 [From Librium] All Systems: A 10-system review of systems was performed and is negative for pertinent findings except as documented above in the HPI. Physical Examination Vital Signs: Vital Signs, Last 4 Hours Pulse Resp BP Pulse Ox 05/13/17 17:55 20 123/83 05/13/17 17:23 94 24 94/72 98 05/13/17 17:00 90 20 95/71 99 General appearance: appears uncomfortable Eyes: nonicteric ENT: oropharynx dry Effort: mildly labored Auscultation: bilateral: diminished breath sounds, rales Cardiovascular: regular rate and rhythm Gastrointestinal: normoactive bowel sounds, non-distended Extremities: no cyanosis, no edema, pulses normal Musculoskeletal: other (medial deviation of MCP joints bilaterally) non-focal exam Results - Laboratory Findings CBC and BMP: 05/13/17 12:40 05/13/17 12:40 ABG ABG pH 7.20 pH Units (7.32-7.45) L* 05/13/17 16:47 ABG pCO2 80 mmHg (35-45) H* 05/13/17 16:47 ABG pO2 61 mmHg (85-104) L 05/13/17 16:47 ABG O2 Saturation 84 % (95-98) L 05/13/17 16:47 PT/INR, D-dimer PT 13.0 Seconds (9.4-12.1) H 05/13/17 12:40 Abnormal lab findings: Abnormal lab results WBC 13.9 K/mcL (4.3-11.1) H D 05/13/17 12:40 Hgb 10.0 g/dL (11.5-15.4) L 05/13/17 12:40 MCH 24.1 pg (28.0-33.3) L 05/13/17 12:40 MCHC 27.9 g/dL (31.6-35.5) L 05/13/17 12:40 RDW 17.7 % (11.5-14.5) H 05/13/17 12:40 MPV 8.9 fL (9.4-12.4) L 05/13/17 12:40 Band Neutrophils % 24.0 % (0-4) H 05/13/17 12:40 Neutrophils # 12.2 K/mcL (1.6-8.9) H 05/13/17 12:40 Lymphocytes # 0.3 K/mcL (0.6-4.6) L 05/13/17 12:40 Monocytes # 1.4 K/mcL (0.0-1.3) H 05/13/17 12:40 Nucleated RBCs/100 WBC 0.1 /100 WBC (0) H 05/13/17 12:40 PT 13.0 Seconds (9.4-12.1) H 05/13/17 12:40 ABG pH 7.20 pH Units (7.32-7.45) L* 05/13/17 16:47 ABG pCO2 80 mmHg (35-45) H* 05/13/17 16:47 ABG pO2 61 mmHg (85-104) L 05/13/17 16:47 ABG HCO3 31 mEq/L (21-27) H 05/13/17 16:47 ABG Total CO2 34 mEq/L (20-26) H 05/13/17 16:47 ABG O2 Saturation 84 % (95-98) L 05/13/17 16:47 Sodium 134 mEq/L (136-145) L 05/13/17 12:40 Chloride 95 mEq/L (98-107) L 05/13/17 12:40 Carbon Dioxide 37 mEq/L (23-29) H 05/13/17 12:40 Creatinine 0.40 mg/dL (0.60-1.20) L 05/13/17 12:40 Glucose 120 mg/dL (70-105) H 05/13/17 12:40 Calculated Osmolality 278 (280-300) L 05/13/17 12:40 Lactic Acid 0.4 mmol/L (0.5-2.2) L 05/13/17 12:40 Calcium 8.4 mg/dL (8.6-10.3) L 05/13/17 12:40 AST 10 Units/L (13-39) L 05/13/17 12:40 B-Natriuretic Peptide 177 pg/mL (Less than 100) H 05/13/17 12:40 Serum Total Protein 6.1 g/dL (6.4-8.9) L 05/13/17 12:40 Albumin 3.2 g/dL (3.5-5.7) L 05/13/17 12:40 Lipase 4 Units/L (11-82) L 05/13/17 12:40 Urine Ketones Trace mg/dL (Negative) H 05/13/17 12:20 Urine Blood Trace (Negative) H 05/13/17 12:20 Urine Microscopic RBC 3-5 per hpf (0-3) H 05/13/17 12:20 Ur Squamous Epith Cells Many per lpf (None-Few) H 05/13/17 12:20 <Jose Bacon W - Last Filed: 05/13/17 19:31> Date of Encounter: 05/13/17 History of Present Illness HPI: Ms. Stark is a 57 year old female All Systems: A 10-system review of systems was performed and is negative for pertinent findings except as documented above in the HPI. Physical Examination Vital Signs: Vital Signs, Last 4 Hours Temp Pulse Resp BP Pulse Ox 05/13/17 18:24 98.0 F 89 26 126/84 98 05/13/17 17:55 20 123/83 05/13/17 17:23 94 24 94/72 98 05/13/17 17:00 90 20 95/71 99 Results - Laboratory Findings CBC and BMP: 05/13/17 12:40 05/13/17 12:40 ABG ABG pH 7.30 pH Units (7.32-7.45) L 05/13/17 19:24 ABG pCO2 65 mmHg (35-45) H 05/13/17 19:24 ABG pO2 61 mmHg (85-104) L 05/13/17 19:24 ABG O2 Saturation 87 % (95-98) L 05/13/17 19:24 PT/INR, D-dimer PT 13.0 Seconds (9.4-12.1) H 05/13/17 12:40 Abnormal lab findings: Abnormal lab results WBC 13.9 K/mcL (4.3-11.1) H D 05/13/17 12:40 Hgb 10.0 g/dL (11.5-15.4) L 05/13/17 12:40 MCH 24.1 pg (28.0-33.3) L 05/13/17 12:40 MCHC 27.9 g/dL (31.6-35.5) L 05/13/17 12:40 RDW 17.7 % (11.5-14.5) H 05/13/17 12:40 MPV 8.9 fL (9.4-12.4) L 05/13/17 12:40 Band Neutrophils % 24.0 % (0-4) H 05/13/17 12:40 Neutrophils # 12.2 K/mcL (1.6-8.9) H 05/13/17 12:40 Lymphocytes # 0.3 K/mcL (0.6-4.6) L 05/13/17 12:40 Monocytes # 1.4 K/mcL (0.0-1.3) H 05/13/17 12:40 Nucleated RBCs/100 WBC 0.1 /100 WBC (0) H 05/13/17 12:40 PT 13.0 Seconds (9.4-12.1) H 05/13/17 12:40 ABG pH 7.30 pH Units (7.32-7.45) L 05/13/17 19:24 ABG pCO2 65 mmHg (35-45) H 05/13/17 19:24 ABG pO2 61 mmHg (85-104) L 05/13/17 19:24 ABG HCO3 32 mEq/L (21-27) H 05/13/17 19:24 ABG Total CO2 34 mEq/L (20-26) H 05/13/17 19:24 ABG O2 Saturation 87 % (95-98) L 05/13/17 19:24 ABG Base Excess 4 mEq/L (-2 to 3) H 05/13/17 19:24 Sodium 134 mEq/L (136-145) L 05/13/17 12:40 Chloride 95 mEq/L (98-107) L 05/13/17 12:40 Carbon Dioxide 37 mEq/L (23-29) H 05/13/17 12:40 Creatinine 0.40 mg/dL (0.60-1.20) L 05/13/17 12:40 Glucose 120 mg/dL (70-105) H 05/13/17 12:40 POC Glucose 144 (58-89) H 05/13/17 18:27 Calculated Osmolality 278 (280-300) L 05/13/17 12:40 Lactic Acid 0.4 mmol/L (0.5-2.2) L 05/13/17 12:40 Calcium 8.4 mg/dL (8.6-10.3) L 05/13/17 12:40 AST 10 Units/L (13-39) L 05/13/17 12:40 B-Natriuretic Peptide 177 pg/mL (Less than 100) H 05/13/17 12:40 Serum Total Protein 6.1 g/dL (6.4-8.9) L 05/13/17 12:40 Albumin 3.2 g/dL (3.5-5.7) L 01/26/18 12:40 Lipase 4 Units/L (11-82) L 05/13/17 12:40 Urine Ketones Trace mg/dL (Negative) H 05/13/17 12:20 Urine Blood Trace (Negative) H 05/13/17 12:20 Urine Microscopic RBC 3-5 per hpf (0-3) H 05/13/17 12:20 Ur Squamous Epith Cells Many per lpf (None-Few) H 05/13/17 12:20 - Attending Attestation I examined this patient and my medical decision-making was reviewed with the Resident Physician. I agree with the documented findings, disposition and treatment plan as described except to the extent set forth below. We independently had [id number] contact with the patient Refer to event note from same day for full overview of my medical decision- making
[2017-05-13] MEDS ORDERED: Albuterol 2.5 MG/3 ML NEBULIZER IH PRN (19:10)
[2017-05-13 19:28] LABS: ABG Base Excess 4 mEq/L (-2 to 3); ABG HCO3 32 mEq/L (21-27); ABG Oxygen Saturation 87 % (95-98); ABG PCO2 65 mmHg (35-45); ABG PO2 61 mmHg (85-104); ABG TCO2 34 mEq/L (20-26)
--- NOTE | 2017-05-13 19:30 | Event Note ---
Date of Encounter: 05/13/17 Time of Encounter: 19:25 Official H&P could not be accessed because of EMR error so Event note entered and I will sign the note when I am able I examined this patient and my medical decision-making was reviewed with the Resident Physician. I agree with the documented findings, disposition and treatment plan as described except to the extent set forth below. We independently had [id number] contact with the patient I spent 35 of Critical Care time with this patient. It involved decision making of high complexity to assess, manipulate, and support vital organ system failure and/or to prevent further life threatening deterioration of the patient' s condition. The time involved in the performance of separately reportable procedures was not counted toward critical care time. Patient seen and examined at bedside Labs, radiology, chart personally reviewed. [employer]: Was mildly encephalopathic on admission that has improved fully awake and alert without focal deficit Pulm: Acute on chronic hypoxic hypercarbic respiratory failure from COPD exacerbation secondary to pneumonia complicated by chest wall deformities. Remains on noninvasive positive pressure ventilation for support high-risk of deterioration to requiring endotracheal intubation repeat ABG pending. Continue bronchodilators and IV steroids Cards: Vasodilatory shock secondary to sepsis patient has received volume resuscitation we will continue to monitor this for Goal MAP 60-65. Lactate is within normal limits FEN-GI: Nothing by mouth for now Renal: No evidence of a CY, urine output monitored as are electrolytes ID: Patient is receiving antimicrobials for hospital associated organisms related to pneumonia broad-spectrum cultures of been obtained planned to de- escalate based upon sensitivities Heme/Onc: DVT prophylaxis given Endo: Glucose Monitored Integ/MSK: Skin Care per routine ICU Nursing Protocol to prevent ulcers. Lines: All lines examined without evidence of infection : Dispo: Remain in ICU for critical illness CODE: HUMBERTO I had a long discussion with the patient regarding endotracheal intubation and she is agreeable to proceed if her life depends on it. My personal impression is that intubation would not necessarily had any quality to her life expectancy given that it is very short at moment to begin with with the severity of her underlying lung illness including FEV1 20% predicted. Nevertheless she wants to proceed with endotracheal intubation if needed. If she survives this hospitalization she will need palliative care consultation for end-of-life decision-making given chronic medical comorbidities and severity of obstructive lung disease.
[2017-05-13] MEDS: Azithromycin 500 MG in D5% in Water 250 ML IVPB SCH (20:03)
[2017-05-13] MEDS: Piperacillin/Tazobactam 3.375 GM/200 ML BAG IVPB SCH (20:17)
[2017-05-13] MEDS: Ipratropium/Albuterol Neb 3 ML IH SCH ×2 (21:11→23:07)
[2017-05-14] MEDS: MethylPREDNISolone 40 MG/ML VIAL IVP SCH ×3 (00:07→16:27)
[2017-05-14] MEDS: Vancomycin 750 MG in D5% in Water 250 ML IVPB SCH ×2 (00:08→13:16)
[2017-05-14] MEDS: Ipratropium/Albuterol Neb 3 ML IH SCH ×6 (03:10→23:07)
[2017-05-14] MEDS: Piperacillin/Tazobactam 3.375 GM/200 ML BAG IVPB SCH ×3 (03:31→19:53)
[2017-05-14 03:48] LABS: Hematocrit 29.7 % (35.3-44.9); Hemoglobin 8.8 g/dL (11.5-15.4); Immature Granulocytes % 0.4 % (0-4); Lymphocytes # 0.3 K/mcL (0.6-4.6); Lymphocytes % 6.4 %; Mean Corpuscular HGB Conc 29.6 g/dL (31.6-35.5); Mean Corpuscular Hemoglobin 24.7 pg (28.0-33.3); Mean Corpuscular Volume 83.4 fL (83.0-100.0); Monocytes # 0.2 K/mcL (0.0-1.3); Monocytes % 2.9 %; Neutrophils # 4.7 K/mcL (1.6-8.9); Platelet Count 262 K/mcL (140-400); Red Blood Count 3.56 M/mcL (3.82-4.97); Red Cell Distribution Width 16.9 % (11.5-14.5); Segmented Neutrophils % 90.3 %
[2017-05-14 04:10] LABS: BUN/Creatinine Ratio 19 (6-26); Blood Urea Nitrogen 6 mg/dL (6-20); Calcium 7.2 mg/dL (8.6-10.3); Carbon Dioxide 31 mEq/L (23-29); Chloride 100 mEq/L (98-107); Glucose 161 mg/dL (70-105); Osmolality,Calculated 281 (280-300); Potassium 3.5 mEq/L (3.5-5.1); Sodium 135 mEq/L (136-145); eGFR For African Americans > 60 (> 60); eGFR For Non-African Americans > 60 (> 60)
[2017-05-14 06:36] LABS: ABG Base Excess 9 mEq/L (-2 to 3); ABG HCO3 34 mEq/L (21-27); ABG Oxygen Saturation 84 % (95-98); ABG PCO2 49 mmHg (35-45); ABG PH 7.45 pH Units (7.32-7.45); ABG PO2 48 mmHg (85-104); ABG TCO2 36 mEq/L (20-26)
--- NOTE | 2017-05-14 07:00 | Pulmonology Progress Note ---
Date of Encounter: 05/14/17 Time of Encounter: 07:00 Objective PUL Vital signs: Last Vital Signs Temp 98.2 F 05/14/17 03:38 Pulse 93 05/14/17 06:00 Resp 17 05/14/17 06:00 BP 104/79 05/14/17 06:00 Pulse Ox 95 05/14/17 06:00 Results - Laboratory Findings CBC and BMP: 05/14/17 03:35 05/14/17 03:35 ABG ABG pH 7.45 pH Units (7.32-7.45) 05/14/17 06:33 ABG pCO2 49 mmHg (35-45) H 05/14/17 06:33 ABG pO2 48 mmHg (85-104) L* 05/14/17 06:33 ABG O2 Saturation 84 % (95-98) L 05/14/17 06:33 PT/INR, D-dimer PT 13.0 Seconds (9.4-12.1) H 05/13/17 12:40 Abnormal lab findings: Abnormal lab results RBC 3.56 M/mcL (3.82-4.97) L 05/14/17 03:35 Hgb 8.8 g/dL (11.5-15.4) L 05/14/17 03:35 Hct 29.7 % (35.3-44.9) L 05/14/17 03:35 MCH 24.7 pg (28.0-33.3) L 05/14/17 03:35 MCHC 29.6 g/dL (31.6-35.5) L 05/14/17 03:35 RDW 16.9 % (11.5-14.5) H 05/14/17 03:35 MPV 9.0 fL (9.4-12.4) L 05/14/17 03:35 Band Neutrophils % 24.0 % (0-4) H 05/13/17 12:40 Lymphocytes # 0.3 K/mcL (0.6-4.6) L 05/14/17 03:35 Nucleated RBCs/100 WBC 0.1 /100 WBC (0) H 05/13/17 12:40 PT 13.0 Seconds (9.4-12.1) H 05/13/17 12:40 ABG pCO2 49 mmHg (35-45) H 05/14/17 06:33 ABG pO2 48 mmHg (85-104) L* 05/14/17 06:33 ABG HCO3 34 mEq/L (21-27) H 05/14/17 06:33 ABG Total CO2 36 mEq/L (20-26) H 05/14/17 06:33 ABG O2 Saturation 84 % (95-98) L 05/14/17 06:33 ABG Base Excess 9 mEq/L (-2 to 3) H 05/14/17 06:33 Sodium 135 mEq/L (136-145) L 05/14/17 03:35 Carbon Dioxide 31 mEq/L (23-29) H 05/14/17 03:35 Creatinine 0.32 mg/dL (0.60-1.20) L 05/14/17 03:35 Glucose 161 mg/dL (70-105) H 05/14/17 03:35 POC Glucose 134 (58-89) H 05/14/17 00:19 Lactic Acid 0.4 mmol/L (0.5-2.2) L 05/13/17 12:40 Calcium 7.2 mg/dL (8.6-10.3) L 05/14/17 03:35 AST 10 Units/L (13-39) L 05/13/17 12:40 B-Natriuretic Peptide 177 pg/mL (Less than 100) H 05/13/17 12:40 Serum Total Protein 6.1 g/dL (6.4-8.9) L 05/13/17 12:40 Albumin 3.2 g/dL (3.5-5.7) L 05/13/17 12:40 Lipase 4 Units/L (11-82) L 05/13/17 12:40 Urine Ketones Trace mg/dL (Negative) H 05/13/17 12:20 Urine Blood Trace (Negative) H 05/13/17 12:20 Urine Microscopic RBC 3-5 per hpf (0-3) H 05/13/17 12:20 Ur Squamous Epith Cells Many per lpf (None-Few) H 05/13/17 12:20 - Clinical Findings Intake & Output: Intake & Output 05/13/17 05/13/17 05/14/17 15:59 23:59 07:59 Intake Total 327.5 / 327.5 450 / 450 Output Total 800 / 800 575 / 575 Balance -472.5 / -472.5 -125 / -125 Weight 53.6 kg 53.6 kg Consult Discharge Plan - Plan Referrals: NONE,PCP [Primary Care Provider] -
--- NOTE | 2017-05-14 07:22 | Pulmonology Progress Note ---
<ArleenJose W - Last Filed: 05/14/17 11:20> Date of Encounter: 05/14/17 Objective PUL Vital signs: Last Vital Signs Temp 98.7 F 05/14/17 07:15 Pulse 105 05/14/17 09:00 Resp 21 05/14/17 09:00 BP 119/77 05/14/17 09:00 Pulse Ox 91 05/14/17 09:00 Results - Laboratory Findings CBC and BMP: 05/14/17 03:35 05/14/17 03:35 ABG ABG pH 7.45 pH Units (7.32-7.45) 05/14/17 06:33 ABG pCO2 49 mmHg (35-45) H 05/14/17 06:33 ABG pO2 48 mmHg (85-104) L* 05/14/17 06:33 ABG O2 Saturation 84 % (95-98) L 05/14/17 06:33 PT/INR, D-dimer PT 13.0 Seconds (9.4-12.1) H 05/13/17 12:40 Abnormal lab findings: Abnormal lab results RBC 3.56 M/mcL (3.82-4.97) L 05/14/17 03:35 Hgb 8.8 g/dL (11.5-15.4) L 05/14/17 03:35 Hct 29.7 % (35.3-44.9) L 05/14/17 03:35 MCH 24.7 pg (28.0-33.3) L 05/14/17 03:35 MCHC 29.6 g/dL (31.6-35.5) L 05/14/17 03:35 RDW 16.9 % (11.5-14.5) H 05/14/17 03:35 MPV 9.0 fL (9.4-12.4) L 05/14/17 03:35 Band Neutrophils % 24.0 % (0-4) H 05/13/17 12:40 Lymphocytes # 0.3 K/mcL (0.6-4.6) L 05/14/17 03:35 Nucleated RBCs/100 WBC 0.1 /100 WBC (0) H 05/13/17 12:40 PT 13.0 Seconds (9.4-12.1) H 05/13/17 12:40 ABG pCO2 49 mmHg (35-45) H 05/14/17 06:33 ABG pO2 48 mmHg (85-104) L* 05/14/17 06:33 ABG HCO3 34 mEq/L (21-27) H 05/14/17 06:33 ABG Total CO2 36 mEq/L (20-26) H 05/14/17 06:33 ABG O2 Saturation 84 % (95-98) L 05/14/17 06:33 ABG Base Excess 9 mEq/L (-2 to 3) H 05/14/17 06:33 Sodium 135 mEq/L (136-145) L 05/14/17 03:35 Carbon Dioxide 31 mEq/L (23-29) H 05/14/17 03:35 Creatinine 0.32 mg/dL (0.60-1.20) L 05/14/17 03:35 Glucose 161 mg/dL (70-105) H 05/14/17 03:35 POC Glucose 134 (58-89) H 05/14/17 00:19 Lactic Acid 0.4 mmol/L (0.5-2.2) L 05/13/17 12:40 Calcium 7.2 mg/dL (8.6-10.3) L 05/14/17 03:35 AST 10 Units/L (13-39) L 05/13/17 12:40 B-Natriuretic Peptide 177 pg/mL (Less than 100) H 05/13/17 12:40 Serum Total Protein 6.1 g/dL (6.4-8.9) L 05/13/17 12:40 Albumin 3.2 g/dL (3.5-5.7) L 05/13/17 12:40 Lipase 4 Units/L (11-82) L 05/13/17 12:40 Urine Ketones Trace mg/dL (Negative) H 05/13/17 12:20 Urine Blood Trace (Negative) H 05/13/17 12:20 Urine Microscopic RBC 3-5 per hpf (0-3) H 05/13/17 12:20 Ur Squamous Epith Cells Many per lpf (None-Few) H 05/13/17 12:20 - Clinical Findings Intake & Output: Intake & Output 05/13/17 05/14/17 05/14/17 23:59 07:59 15:59 Intake Total 327.5 / 327.5 650 / 650 Output Total 800 / 800 775 / 775 Balance -472.5 / -472.5 -125 / -125 Weight 53.6 kg 53.6 kg Consult Discharge Plan - Plan Referrals: NONE,PCP [Primary Care Provider] - - Attending Attestation I examined this patient and my medical decision-making was reviewed with the Resident Physician. I agree with the documented findings, disposition and treatment plan as described except to the extent set forth below. We independently had vyvb-[id number] contact with the patient Patient seen and examined at bedside Labs, radiology, chart personally reviewed. Management was reviewed during multidisciplinary critical care rounds. COMPLIANCE TESTER: Awake and alert today no focal deficit she has chronic pain related to musculoskeletal disease and we will restart her home analgesia regimen Pulm: Acute on chronic hypoxic hypercarbic respiratory failure secondary to COPD exacerbation likely from pneumonia she has been weaned off BiPAP today but remains tenuous we will continue to monitor her and she may need intermittent BiPAP for support continue bronchodilators and steroids in addition to antimicrobials Cards: Blood pressure stable. Monitor on telemetry FEN-GI: Okay to supplement [place] liquids today with advancement to full diet once not requiring NIPPV Renal: Urine output monitored no evidence of acute kidney injury ID: Patient presenting with pneumonia at risk for infection with hospital acquired organisms such as Pseudomonas and MRSA she is being covered broadly with planned for de-escalation that she is also at risk for atypical infection she is also receiving azithromycin Heme/Onc: DVT prophylaxis given Endo: Glucose Monitored Integ/MSK: Skin Care per routine ICU Nursing Protocol to prevent ulcers. Patient has a history of rheumatoid arthritis but is not receiving immunosuppressants or steroids for this. Lines: All lines examined without evidence of infection : Dispo: Okay for transfer to stepdown unit when bed available if clinically stable over the course of the afternoon CODE: DNAR I recommend palliative care consultation non-urgent basis for establishment of goals of care in the future as she and my opinion would not benefit from intubation mechanical ventilation with the degree of pulmonary function impairment secondary to end-stage COPD <Felipe Yung - Last Filed: 05/14/17 12:12> Date of Encounter: 05/14/17 Time of Encounter: 07:38 Assessment and Plan (1) Acute and chronic respiratory failure with hypercapnia Current Visit: Yes Status: Acute Acute on chronic respiratory failure with acute decompensation with hypoxia and hypercapnia CXR and CTA shows worsening bilateral airspace disease with apical and right lower lobe atelectasis suspicious for aspiration pneumonitis ABG: pH 7.26, pCO2 84, HCO3 38 on arrival Repeat this morning showing pH 7.45, PCO2 49, PO2 48 and HCO3 34 Weaned off BiPAP and tolerated oxygen mask at 5 L Blood cultures pending Respiratory panel negative Continue IV antibiotics, bronchodilators and steroids (2) Aspiration pneumonia Current Visit: Yes Status: Acute There is a concern for aspiration pneumonia with patient's functional status Continue day two of Vanc, Zosyn and Levaquin; de-escalate pending improvement and cultures Bronchodilators Steroids Oxygen See above Qualifiers: Aspiration pneumonia type: unspecified Laterality: bilateral Lung location: lower lobe of lung Qualified Code(s): J69.0 - Pneumonitis due to inhalation of food and vomit (3) COPD exacerbation Current Visit: No Status: Acute Continue with bronchodilators and steroids for now. Supplemental oxygen. Appears to be improving. Re-evaluate tomorrow (4) Chronic anemia Current Visit: Yes Status: Acute Stable at this time (5) Hypocalcemia Current Visit: Yes Status: Acute Down to 7.2 today. Replacing. Will recheck tomorrow. (6) Rheumatoid arthritis Current Visit: No Status: Chronic Qualifiers: Rheumatoid arthritis location: hand Rheumatoid factor presence: with rheumatoid factor Laterality: bilateral Qualified Code(s): M05.741 - Rheumatoid arthritis with rheumatoid factor of right hand without organ or systems involvement; M05.742 - Rheumatoid arthritis with rheumatoid factor of left hand without organ or systems involvement; M05.742 - Rheumatoid arthritis with rheumatoid factor of left hand without organ or systems involvement; M05.742 - Rheumatoid arthritis with rheumatoid factor of left hand without organ or systems involvement; M05.742 - Rheumatoid arthritis with rheumatoid factor of left hand without organ or systems involvement (7) DVT prophylaxis Current Visit: No Status: Acute 5000 Units Subcutaneous Every 12 Subjective Interval history: Patient is admitted for acute on chronic respiratory failure secondary to likely aspiration pneumonia Patient is resting comfortably this morning Patient reports patient has repeatedly asked for specific opioids and benzos She is now off BiPAP and tolerating oxy mask No new complaints this morning Denies any chest pain, shortness breath, palpitations, abdominal pain or GI issues. Objective PUL Vital signs: Last Vital Signs Temp 98.2 F 05/14/17 03:38 Pulse 93 05/14/17 06:00 Resp 17 05/14/17 06:00 BP 104/79 05/14/17 06:00 Pulse Ox 95 05/14/17 06:00 General appearance: no acute distress Eyes: nonicteric ENT: oropharynx moist Neck: supple Effort: normal Auscultation: right: diminished breath sounds (crackles) Cardiovascular: regular rate and rhythm Gastrointestinal: normoactive bowel sounds, non-distended Integumentary: normal Extremities: no cyanosis, no edema, no clubbing Musculoskeletal: no deformities normal mental status, non-focal exam Results - Laboratory Findings CBC and BMP: 05/14/17 03:35 05/14/17 03:35 ABG ABG pH 7.45 pH Units (7.32-7.45) 05/14/17 06:33 ABG pCO2 49 mmHg (35-45) H 05/14/17 06:33 ABG pO2 48 mmHg (85-104) L* 05/14/17 06:33 ABG O2 Saturation 84 % (95-98) L 05/14/17 06:33 PT/INR, D-dimer PT 13.0 Seconds (9.4-12.1) H 05/13/17 12:40 Abnormal lab findings: Abnormal lab results RBC 3.56 M/mcL (3.82-4.97) L 05/14/17 03:35 Hgb 8.8 g/dL (11.5-15.4) L 05/14/17 03:35 Hct 29.7 % (35.3-44.9) L 05/14/17 03:35 MCH 24.7 pg (28.0-33.3) L 05/14/17 03:35 MCHC 29.6 g/dL (31.6-35.5) L 05/14/17 03:35 RDW 16.9 % (11.5-14.5) H 05/14/17 03:35 MPV 9.0 fL (9.4-12.4) L 05/14/17 03:35 Band Neutrophils % 24.0 % (0-4) H 05/13/17 12:40 Lymphocytes # 0.3 K/mcL (0.6-4.6) L 05/14/17 03:35 Nucleated RBCs/100 WBC 0.1 /100 WBC (0) H 05/13/17 12:40 PT 13.0 Seconds (9.4-12.1) H 05/13/17 12:40 ABG pCO2 49 mmHg (35-45) H 05/14/17 06:33 ABG pO2 48 mmHg (85-104) L* 05/14/17 06:33 ABG HCO3 34 mEq/L (21-27) H 05/14/17 06:33 ABG Total CO2 36 mEq/L (20-26) H 05/14/17 06:33 ABG O2 Saturation 84 % (95-98) L 05/14/17 06:33 ABG Base Excess 9 mEq/L (-2 to 3) H 05/14/17 06:33 Sodium 135 mEq/L (136-145) L 05/14/17 03:35 Carbon Dioxide 31 mEq/L (23-29) H 05/14/17 03:35 Creatinine 0.32 mg/dL (0.60-1.20) L 05/14/17 03:35 Glucose 161 mg/dL (70-105) H 05/14/17 03:35 POC Glucose 134 (58-89) H 05/14/17 00:19 Lactic Acid 0.4 mmol/L (0.5-2.2) L 05/13/17 12:40 Calcium 7.2 mg/dL (8.6-10.3) L 05/14/17 03:35 AST 10 Units/L (13-39) L 05/13/17 12:40 B-Natriuretic Peptide 177 pg/mL (Less than 100) H 05/13/17 12:40 Serum Total Protein 6.1 g/dL (6.4-8.9) L 05/13/17 12:40 Albumin 3.2 g/dL (3.5-5.7) L 05/13/17 12:40 Lipase 4 Units/L (11-82) L 05/13/17 12:40 Urine Ketones Trace mg/dL (Negative) H 05/13/17 12:20 Urine Blood Trace (Negative) H 05/13/17 12:20 Urine Microscopic RBC 3-5 per hpf (0-3) H 05/13/17 12:20 Ur Squamous Epith Cells Many per lpf (None-Few) H 05/13/17 12:20 - Clinical Findings Intake & Output: Intake & Output 05/13/17 05/13/17 05/14/17 15:59 23:59 07:59 Intake Total 327.5 / 327.5 450 / 450 Output Total 800 / 800 575 / 575 Balance -472.5 / -472.5 -125 / -125 Weight 53.6 kg 53.6 kg
[2017-05-14 09:29] LABS: Adenovirus Not Detected (Not Detect); Bordetella Pertussis Not Detected (Not Detect); Chlamydophila pneumoniae Not Detected (Not Detect); Coronavirus 229E Not Detected (Not Detect); Coronavirus HKU1 Not Detected (Not Detect); Coronavirus NL63 Not Detected (Not Detect); Coronavirus OC43 Not Detected (Not Detect); Human Metapneumovirus Not Detected (Not Detect); Human Rhinovirus/Enterovirus Not Detected (Not Detect); Influenza A Subtype 2009 H1 Not Detected (Not Detect); Influenza A Untypeable Not Detected (Not Detect); Influenza B Not Detected (Not Detect); Mycoplasma pneumoniae Not Detected (Not Detect); Parainfluenza Virus 1 Not Detected (Not Detect); Parainfluenza Virus 2 Not Detected (Not Detect); Parainfluenza Virus 3 Not Detected (Not Detect); Parainfluenza Virus 4 Not Detected (Not Detect); Respiratory Syncytial Virus Not Detected (Not Detect)
--- NOTE | 2017-05-14 10:01 | Electrocardiograph Report ---
[place] [id number] Test Date: 2017-05-13 Pat Name: Anju Stark Department: 103 Room: 11 Gender: F Assembler: DARLENE : 1960 Requested By: Aylin Enriquez Order Number: [id number] Reading MD: Monse Rowley Measurements Intervals [place] Rate: 98 P: 5 [place]: 115 QRS: 12 QRSD: 86 T: 22 QT: 327 QTc: 382 Interpretive Statements SINUS RHYTHM WITH SINUS ARRHYTHMIA WITH SHORT [place] INTERVAL MINIMAL VOLTAGE CRITERIA FOR LVH, CONSIDER NORMAL VARIANT [MEETS CRITERIA IN ONE OF: R(aVL), S(V1), R(V5), R(V5/V6)+S(V1)] Electronically Signed On 05-14-2017 10:00:19 EST by Monse Rowley
[2017-05-14] MEDS ORDERED: *HR* OxyCODONE/APAP 5/325 TABLET PO PRN (10:08)
[2017-05-14] MEDS: *HR* OxyCODONE Immed Rel 5 MG TABLET PO PRN ×3 (11:26→20:42)
[2017-05-14] MEDS: *HR* Heparin 5,000 UNIT/ML VIAL SQ SCH ×2 (13:15→18:05)
[2017-05-14] MEDS: Famotidine 20 MG TABLET PO SCH ×2 (13:19→19:54)
[2017-05-14] MEDS: Norepinephrine 4 MG in D5% in Water 250 ML IVC SCH (17:54)
[2017-05-14] MEDS: Azithromycin 500 MG in D5% in Water 250 ML IVPB SCH (19:50)
[2017-05-15] MEDS: *HR* OxyCODONE Immed Rel 5 MG TABLET PO PRN ×5 (01:40→20:09)
[2017-05-15] MEDS: MethylPREDNISolone 40 MG/ML VIAL IVP SCH ×2 (01:41→09:10)
[2017-05-15] MEDS ORDERED: Vancomycin 1,000 MG in D5% in Water 250 ML IVPB SCH (03:00)
[2017-05-15] MEDS: Ipratropium/Albuterol Neb 3 ML IH SCH ×7 (03:39→23:16)
[2017-05-15] MEDS: Piperacillin/Tazobactam 3.375 GM/200 ML BAG IVPB SCH (03:56)
[2017-05-15] MEDS: *HR* Heparin 5,000 UNIT/ML VIAL SQ SCH ×2 (05:57→17:39)
[2017-05-15 07:43] LABS: BUN/Creatinine Ratio 20 (6-26); Blood Urea Nitrogen 7 mg/dL (6-20); Calcium 7.9 mg/dL (8.6-10.3); Carbon Dioxide 31 mEq/L (23-29); Chloride 106 mEq/L (98-107); Glucose 192 mg/dL (70-105); Magnesium 2.3 mg/dL (1.6-2.6); Osmolality,Calculated 295 (280-300); Potassium 3.7 mEq/L (3.5-5.1); Sodium 141 mEq/L (136-145); eGFR For African Americans > 60 (> 60); eGFR For Non-African Americans > 60 (> 60)
[2017-05-15 07:51] LABS: Basophils % 0.1 %; Hemoglobin 8.6 g/dL (11.5-15.4); Immature Granulocytes % 0.7 % (0-4); Lymphocytes # 0.3 K/mcL (0.6-4.6); Mean Corpuscular HGB Conc 29.7 g/dL (31.6-35.5); Mean Corpuscular Hemoglobin 24.7 pg (28.0-33.3); Mean Corpuscular Volume 83.3 fL (83.0-100.0); Monocytes # 0.5 K/mcL (0.0-1.3); Monocytes % 6.3 %; Platelet Count 329 K/mcL (140-400); Red Blood Count 3.48 M/mcL (3.82-4.97); Red Cell Distribution Width 17.7 % (11.5-14.5); Segmented Neutrophils % 89.9 %
[2017-05-15 07:55] LABS: Neutrophils # 7.6 K/mcL (1.6-8.9)
[2017-05-15] MEDS ORDERED: Aminoglycoside Consult 1 EACH MC ONE (08:33)
[2017-05-15] MEDS ORDERED: ALPRAZolam 1 MG TABLET PO SCH (09:00)
[2017-05-15] MEDS: Famotidine 20 MG TABLET PO SCH ×2 (09:10→20:09)
--- NOTE | 2017-05-15 09:19 | Pulmonology Progress Note ---
Date of Encounter: 05/15/17 Time of Encounter: 09:19 Assessment and Plan (1) Acute and chronic respiratory failure ([id number]) Current Visit: No Status: Acute Patient seen and examined at bedside and case management was reviewed during multidisciplinary ICU rounding. Ms. Stark continues to do very well and she has been weaned off BiPAP occasionally she will need this for increased work of breathing but not consistently. She is on a modest amount of supplemental oxygen with excellent oxygenation She is being treated for pneumonia with exposure to hospital associated organisms such as Pseudomonas and MRSA with planned to de-escalate her respiratory infection panel is negative We have also provided bronchodilators and steroids for exacerbation of COPD plan to transition to enteral formulation of prednisone I consulted the palliative care service today and jointly we met with the patient and her family at bedside and explained that her overall prognosis from respiratory standpoint is very poor and we suspect her life expectancy is less than 6 months and that aggressive measures such as endotracheal intubation would not provide clear therapeutic advantage over more conservative measures aimed at mitigation of symptoms this may hasten her demise which she understands. Overall patient states that she wants to pursue more hospice oriented care and would like to return home to live with her brother who is in the room his name is Jonathon and his . Although she was very tearful throughout the conversation she did think me and the palliative care team for this discussion. She also wants to have healthcare social worker consulted to financial we will which we will consult them tomorrow for this purpose. Her CODE STATUS was changed to reflect this conversation and is now DNAR/DNI She is stable for transfer to the general medical/telemetry services for ongoing care Continue BiPAP as needed for work of breathing Qualifiers: Respiratory failure complication: hypoxia and hypercapnia Qualified Code(s) : J96.21 - Acute and chronic respiratory failure with hypoxia; J96.22 - Acute and chronic respiratory failure with hypercapnia; J96.22 - Acute and chronic respiratory failure with hypercapnia; J96.22 - Acute and chronic respiratory failure with hypercapnia (2) Pneumonia Current Visit: Yes Status: Acute Qualifiers: Qualified Code(s): J18.9 - Pneumonia, unspecified organism (3) Acute exacerbation of chronic obstructive airways disease Current Visit: No Status: Acute (4) Chronic pain Current Visit: No Status: Chronic Qualifiers: Chronic pain type: chronic pain syndrome Qualified Code(s): G89.4 - Chronic pain syndrome (5) Goals of care, counseling/discussion Current Visit: Yes Status: Acute Subjective Principal diagnosis: Respiratory failure Interval history: Patient had an uneventful evening she has been off BiPAP and tolerating that reasonably well she does have periods of intense anxiety and emotional lability which respond benzodiazepine Objective PUL Vital signs: Last Vital Signs Temp 98.5 F 05/15/17 03:55 Pulse 111 05/15/17 08:40 Resp 24 05/15/17 08:40 BP 139/92 05/15/17 08:40 Pulse Ox 96 05/15/17 08:40 General appearance: appears uncomfortable Auscultation: bilateral: diminished breath sounds Cardiovascular: regular rate and rhythm Gastrointestinal: normoactive bowel sounds Musculoskeletal: other (Severe kyphoscoliosis) normal mental status, non-focal exam anxious, depressed Results - Laboratory Findings CBC and BMP: 05/15/17 07:00 05/15/17 07:00 ABG ABG pH 7.45 pH Units (7.32-7.45) 05/14/17 06:33 ABG pCO2 49 mmHg (35-45) H 05/14/17 06:33 ABG pO2 48 mmHg (85-104) L* 05/14/17 06:33 ABG O2 Saturation 84 % (95-98) L 05/14/17 06:33 PT/INR, D-dimer PT 13.0 Seconds (9.4-12.1) H 05/13/17 12:40 Abnormal lab findings: Abnormal lab results RBC 3.48 M/mcL (3.82-4.97) L 05/15/17 07:00 Hgb 8.6 g/dL (11.5-15.4) L 05/15/17 07:00 Hct 29.0 % (35.3-44.9) L 05/15/17 07:00 MCH 24.7 pg (28.0-33.3) L 05/15/17 07:00 MCHC 29.7 g/dL (31.6-35.5) L 05/15/17 07:00 RDW 17.7 % (11.5-14.5) H 05/15/17 07:00 MPV 9.0 fL (9.4-12.4) L 05/15/17 07:00 Band Neutrophils % 24.0 % (0-4) H 05/13/17 12:40 Lymphocytes # 0.3 K/mcL (0.6-4.6) L 05/15/17 07:00 Nucleated RBCs/100 WBC 0.1 /100 WBC (0) H 05/13/17 12:40 PT 13.0 Seconds (9.4-12.1) H 05/13/17 12:40 ABG pCO2 49 mmHg (35-45) H 05/14/17 06:33 ABG pO2 48 mmHg (85-104) L* 05/14/17 06:33 ABG HCO3 34 mEq/L (21-27) H 05/14/17 06:33 ABG Total CO2 36 mEq/L (20-26) H 05/14/17 06:33 ABG O2 Saturation 84 % (95-98) L 05/14/17 06:33 ABG Base Excess 9 mEq/L (-2 to 3) H 05/14/17 06:33 Carbon Dioxide 31 mEq/L (23-29) H 05/15/17 07:00 Creatinine 0.35 mg/dL (0.60-1.20) L 05/15/17 07:00 Glucose 192 mg/dL (70-105) H 05/15/17 07:00 POC Glucose 134 (58-89) H 05/14/17 00:19 Lactic Acid 0.4 mmol/L (0.5-2.2) L 05/13/17 12:40 Calcium 7.9 mg/dL (8.6-10.3) L 05/15/17 07:00 AST 10 Units/L (13-39) L 05/13/17 12:40 B-Natriuretic Peptide 177 pg/mL (Less than 100) H 05/13/17 12:40 Serum Total Protein 6.1 g/dL (6.4-8.9) L 05/13/17 12:40 Albumin 3.2 g/dL (3.5-5.7) L 05/13/17 12:40 Lipase 4 Units/L (11-82) L 05/13/17 12:40 Urine Ketones Trace mg/dL (Negative) H 05/13/17 12:20 Urine Blood Trace (Negative) H 05/13/17 12:20 Urine Microscopic RBC 3-5 per hpf (0-3) H 05/13/17 12:20 Ur Squamous Epith Cells Many per lpf (None-Few) H 05/13/17 12:20 Vancomycin Trough 5.6 mcg/mL (10-20) L 05/15/17 01:26 - Microbiology Findings Microbiology Findings: Microbiology, Last 48 Hours 05/14/17 11:30 Legionella Antigen - Final Urine,[place] Streptococcus pneumoniae Antigen (M - Final - Clinical Findings Intake & Output: Intake & Output 05/14/17 05/15/17 05/15/17 23:59 07:59 15:59 Intake Total 450 / 450 450 / 450 Output Total 850 / 850 500 / 500 Balance -400 / -400 -50 / -50 Weight 54.5 kg Consult Discharge Plan - Plan Referrals: NONE,PCP [Primary Care Provider] -
[2017-05-15] MEDS ORDERED: Albuterol 2.5 MG/3 ML NEBULIZER IH PRN (11:34)
[2017-05-15] MEDS ORDERED: Norepinephrine 4 MG in D5% in Water 250 ML IVC SCH (11:34)
[2017-05-15] MEDS ORDERED: Piperacillin/Tazobactam 3.375 GM/200 ML BAG IVPB SCH (12:00)
--- NOTE | 2017-05-15 12:43 | Palliative - Consult Note ---
Date of Encounter: 05/15/17 Time of Encounter: 12:00 - Assessment and Plan (1) Goals of care, counseling/discussion Current Visit: Yes Status: Acute Assessment and plan: Conducted beside meeting with patient. Dr. Bacon, patients brother Jonathon and [id number] Natalie. Dr. Bacon explained patients overall poor condition related to her end-stage- lung function. Discussed that patient would not benefit from mechanical ventilation and that her overall prognosis is poor with less than 6 months to live. The patient was previously enrolled in hospice care through [facility] and understands what hospice care is. The patient verbalized understanding of overall poor prognosis and agrees to enroll in [facility] hospice care. The patient will move to [place], [place] to live with her brother Jonathon. The patient agrees to transition to comfort care. Code status was changed to DNRCC - Comfort Care. Discussed home DME needs. Patient DME needs include: - Hospital bed - Bedside commode - Bedside table - Oxygen patient is 4.5 L at baseline Contact number for DME is brother Jonathon - #[phone]. This is his home number. He reports that cell # is hit and miss at home. (2) Dyspnea Current Visit: Yes Status: Acute Assessment and plan: Supplemental O2, duonebs, proventil, steroids with PRN Bipap. Xanax for anxiety. Position for comfort. Qualifiers: Dyspnea type: unspecified Qualified Code(s): R06.00 - Dyspnea, unspecified (3) Anxiety Current Visit: No Status: Chronic Assessment and plan: Induced by SOB. Xanax as needed. (4) Acute exacerbation of chronic obstructive airways disease Current Visit: No Status: Acute (5) Acute and chronic respiratory failure ([id number]) Current Visit: No Status: Acute Qualifiers: Respiratory failure complication: hypoxia and hypercapnia Qualified Code(s) : J96.21 - Acute and chronic respiratory failure with hypoxia; J96.22 - Acute and chronic respiratory failure with hypercapnia; J96.22 - Acute and chronic respiratory failure with hypercapnia; J96.22 - Acute and chronic respiratory failure with hypercapnia Palliative-CN HPI - Data of Consult Patient: new to practice Consult date: 05/15/17 Requesting Physician: Jose Bacon MD Primary Care Provider: PCP NONE - Consult Narrative Palliative Care/Comfort Measures: Palliative care Reason for consult: Goals of Care discussion History of present illness: Ms. Stark is a 57 year old female admitted with respiratory failure. The patient is currently a resident of [facility]. The patient has end stage lung disease requiring 4.5 L of O2 around the clock. The patient has had multiple admissions for respiratory failure over the past year. This palliative care consult is for goals of care discussion and possible transition to hospice care. CC: Jose Bacon MD Past Med Surg Social Fam HX - Past Medical History Source: patient, old records reviewed, obtained from family, nursing notes reviewed Medical history: non-contributory, COPD, hypertension, RA Psychiatric history: anxiety - Past Surgical History Surgical History: non-contributory - Social History Smoking Status: Former smoker Smokeless Tobacco Status: No Alcohol use: none Drug use: none - Family History Father Living Status: Brother Hx Family Cardiac Disorders: Yes (HTN) Hx Family Respiratory Disorders: Yes (COPD) Hx Family Cancer: No Hx Family GI Disorders: No Hx Family Endocrine Disorder: No Hx Family Neuromuscular Disorders: No Hx Family Neurologic Disorders: No Hx Family HEENT Disorders: No Hx Family Autoimmune Disorders: No Medications and Allergies Metoprolol XL (24 HR) Succ [Toprol Xl] 25 mg PO DAILY 01/30/16 [History] Guaifenesin [Mucinex] 1,200 mg PO BID 04/14/17 [History] Montelukast [Singulair] 10 mg PO DAILY 04/14/17 [History] Tiotropium [Spiriva] 18 mcg IH DAILY 04/14/17 [History] Alendronate Sodium [Fosamax] 70 mg PO QWEEK 04/15/17 [History] Budesonide/Formoterol 160/4.5 [Symbicort 160/4.5] 2 puff IH BIDR 04/15/17 [ History] Buspirone HCl [Buspar] 15 mg PO BID 04/15/17 [History] Cholecalciferol (Vitamin D3) [Vitamin D3] 10,000 unit PO 2XW 04/15/17 [History] Denosumab [Prolia (For Outpatient Infusion)] 80 mg SQ Q6M 04/15/17 [History] Lisinopril [Zestril] 5 mg PO DAILY 12/29/17 [History] Melatonin/Pyridoxine HCl (B6) [Melatonin 5 mg Tablet] 5 mg PO HS 04/15/17 [ History] Polyethylene Glycol 3350 [MiraLAX] 17 gm PO DAILY 04/15/17 [History] Roflumilast [Daliresp] 500 mcg PO DAILY 04/15/17 [History] Esomeprazole Magnesium [Nexium] 40 mg PO DAILY #30 capsule. 04/19/17 [Rx] Ferrous Sulfate 325 mg PO BIDWM #60 tablet 04/19/17 [Rx] Oxycodone HCl [Oxaydo] 5 mg PO Q4HR PRN #12 tablet.orl 04/19/17 [Rx] ALPRAZolam [Xanax 1 MG Tablet] 1 mg PO TID PRN 05/13/17 [History] Albuterol Neb [AccuNeb] 0.63 mg IH ONCE PRN 05/13/17 [History] Oseltamivir [Tamiflu] 75 mg PO DAILY 05/13/17 [History] 3 Allergy/AdvReac Type Severity Reaction Status Date / Time acetaminophen [From Tylenol] Allergy Rash Verified 09/23/15 06:03 chlordiazepoxide Allergy Rash Verified 09/23/15 06:03 [From Librium] All systems: reviewed and no additional remarkable complaints except as stated ( SOB, Cough, and DORIS) - Constitutional Constitutional ROS PAL: fatigue, malaise - Respiratory Respiratory: dyspnea - Musculoskeletal Musculoskeletal ROS IM: muscle weakness - Neurological Neurological ROS: weakness - Psychiatric Psychiatric general PM: anxiety Palliative Care-Exam - Constitutional Vitals: Temp Pulse Resp BP Pulse Ox 98.5 F 105 22 145/99 98 05/15/17 03:55 05/15/17 10:45 05/15/17 11:23 05/15/17 10:45 05/15/17 11:23 General appearance: Present: cooperative - Head Head Exam: Present: atraumatic, normal inspection - Eye Eye exam: Present: PERRL - ENT ENT exam: Present: mucous membranes moist - Expanded ENT Exam Mouth Exam: Present: moist - Neck Neck exam: Present: full ROM - Respiratory Respiratory exam: Present: decreased breath sounds, prolonged expiratory phase - Expanded Respiratory Exam Location: decreased breath sounds: Left, Right, Lower - Cardiovascular Cardiovascular exam: Present: RRR, +S1, +S2 - Expanded Cardiovascular Exam Peripheral pulses: 1+: Femoral (L) PM, Femoral (R) PM, Posterior Tibialis (L), Posterior Tibialis (R), 2+: Carotid (L) PM, Carotid (R) PM, Radial (L), Radial ( R), Dorsalis Pedis (L) PM, Dorsalis Pedis (R) PM - GI/Abdominal Exam GI/Abdominal exam: Present: normal bowel sounds, soft - Extremities Exam Extremities exam: Present: normal capillary refill - Expanded Upper Extremities Exam Upper Arm exam: Present: full ROM Elbow exam: Present: full ROM Forearm wrist exam: Present: full ROM Hand wrist exam: Present: full ROM - Neurological Exam Neurological exam: Present: alert, oriented X3 - Expanded Neurological Exam Patient oriented to: Present: person, place, time Coma Scale Eye Opening: Spontaneous Coma Scale Motor Response: Obeys Commands Coma Scale Verbal Response: Oriented Coma Scale Total: 15 - Psychiatric Psychiatric exam: Present: anxious Internal Medicine - CN: Reslt - Labs CBC & Chem 7: 05/15/17 07:00 05/15/17 07:00 Labs: Short CBC 05/15/17 Range/Units 07:00 WBC 8.4 D (4.3-11.1) K/mcL Hgb 8.6 L (11.5-15.4) g/dL Hct 29.0 L (35.3-44.9) % Plt Count 329 (140-400) K/mcL Neutrophils # 7.6 (1.6-8.9) K/mcL BMP 05/15/17 07:00 Sodium 141 Potassium 3.7 Chloride 106 Carbon Dioxide 31 H BUN 7 Creatinine 0.35 L Glucose 192 H Calcium 7.9 L - ABG Interpretation ABG results: ABG ABG pH 7.45 pH Units (7.32-7.45) 05/14/17 06:33 ABG pCO2 49 mmHg (35-45) H 05/14/17 06:33 ABG pO2 48 mmHg (85-104) L* 05/14/17 06:33 ABG O2 Saturation 84 % (95-98) L 05/14/17 06:33 PT/INR, D-dimer PT 13.0 Seconds (9.4-12.1) H 05/13/17 12:40 Consult Discharge Plan - Plan Referrals: NONE,PCP [Primary Care Provider] - Palliative Quality Palliative Quality: Screen for Code Status: Yes, Screen for Goals of Care: Yes, Screen for Pain: Yes, If Pain Regimen Started, Initiate Bowel Regimen: Yes, Screen for Nausea/Vomitting: Yes Code Status: 05/13/17 22:28 CODE [Resuscitation Status: Active] [RES] Routine Comment: Resuscitation Status: DNR-Comfort Care-Arrest 05/15/17 12:37 DNR [Resuscitation Status: Active] [RES] Routine Resuscitation Status: DNR-Comfort Care Comment:
[2017-05-15] MEDS ORDERED: Atropine Sulfate 1% 40 DROP/2 ML BOTTLE SL PRN (13:26)
[2017-05-15] MEDS: ALPRAZolam 1 MG TABLET PO SCH ×2 (15:49→20:09)
[2017-05-15] MEDS ORDERED: MethylPREDNISolone 40 MG/ML VIAL IVP SCH (16:00)
[2017-05-15] MEDS ORDERED: Azithromycin 500 MG in D5% in Water 250 ML IVPB SCH (20:00)
[2017-05-16] MEDS: *HR* OxyCODONE Immed Rel 5 MG TABLET PO PRN ×2 (00:09→04:08)
[2017-05-16] MEDS: Ipratropium/Albuterol Neb 3 ML IH SCH ×5 (03:50→19:47)
[2017-05-16] MEDS: *HR* Heparin 5,000 UNIT/ML VIAL SQ SCH ×2 (05:01→16:52)
[2017-05-16] MEDS: *HR* LORazepam Oral Conc 2 MG/ML SL PRN (06:22)
[2017-05-16] MEDS: Famotidine 20 MG TABLET PO SCH ×2 (08:51→20:22)
[2017-05-16] MEDS: ALPRAZolam 1 MG TABLET PO SCH ×3 (08:51→20:22)
--- NOTE | 2017-05-16 09:47 | Palliative Progress Note ---
Date of Encounter: 05/16/17 Time of Encounter: 13:25 - Assessment and plan (1) Goals of care, counseling/discussion Current Visit: Yes Status: Acute Assessment and plan: Checking this am to ensure Patient's discharging address is within [facility] catchment area. Will be contacting brother as well for timeline for discharge. Afternoon update - pt address is in [facility] service area. D/W pt brother Jonathon via telephone. Jonathon does desire pt to continue treatment here to see if her breathing is able to improve some, prior to discharging home with hospice care. Called [facility] to get pt medication list. D/W Dr. Clancy/[facility]A pharmacist Cher that her home meds need restarted. She may also need to remain on Prednisone short term, as she was receiving IV Solumedrol every 8 hours in ICU. She will require setup of multiple DME, oxygen/bipap prior to discharge. Will continue to follow. (2) Chronic pain Current Visit: No Status: Chronic Assessment and plan: Patient states she is on Oxycontin 15 as well as Oxycodone at [facility]. Called and asked for records to be faxed to verify dosages. Will check - possibly transition to MS Contin as Hospice will not pay for Oxycontin. Will f/ u later this am Afternoon update: Discussed pain regimen with patient. Will start MS Contin 15mg bid, and allow her prior home dose of Oxycodone 15mg every 4 hours for breakthrough pain. Monitor. Qualifiers: Chronic pain type: chronic pain syndrome Qualified Code(s): G89.4 - Chronic pain syndrome (3) Anxiety Current Visit: No Status: Chronic Assessment and plan: Continue Xanax and monitor (4) Acute exacerbation of chronic obstructive airways disease Current Visit: No Status: Acute (5) Acute and chronic respiratory failure ([id number]) Current Visit: No Status: Acute Qualifiers: Respiratory failure complication: hypoxia and hypercapnia Qualified Code(s) : J96.21 - Acute and chronic respiratory failure with hypoxia; J96.22 - Acute and chronic respiratory failure with hypercapnia; J96.22 - Acute and chronic respiratory failure with hypercapnia; J96.22 - Acute and chronic respiratory failure with hypercapnia - Time Spent With Patient Total time spent is greater than 50% in coordination of care (as documented) at patient's floor/unit and/or counseling patient: 25 - 35 minutes - Subjective Interval history: Patient c/o chronic pain and stating she is not on same medications as prior to admission,, and she feels terrible. Resting quietly with Oxymask on at present. Appears in no acute distress. FAmily not present. - Constitutional Vitals: Abnormal lab results RBC 3.48 M/mcL (3.82-4.97) L 05/15/17 07:00 Hgb 8.6 g/dL (11.5-15.4) L 05/15/17 07:00 Hct 29.0 % (35.3-44.9) L 05/15/17 07:00 MCH 24.7 pg (28.0-33.3) L 05/15/17 07:00 MCHC 29.7 g/dL (31.6-35.5) L 05/15/17 07:00 RDW 17.7 % (11.5-14.5) H 05/15/17 07:00 MPV 9.0 fL (9.4-12.4) L 05/15/17 07:00 Band Neutrophils % 24.0 % (0-4) H 05/13/17 12:40 Lymphocytes # 0.3 K/mcL (0.6-4.6) L 05/15/17 07:00 Nucleated RBCs/100 WBC 0.1 /100 WBC (0) H 05/13/17 12:40 PT 13.0 Seconds (9.4-12.1) H 05/13/17 12:40 ABG pCO2 49 mmHg (35-45) H 05/14/17 06:33 ABG pO2 48 mmHg (85-104) L* 05/14/17 06:33 ABG HCO3 34 mEq/L (21-27) H 05/14/17 06:33 ABG Total CO2 36 mEq/L (20-26) H 05/14/17 06:33 ABG O2 Saturation 84 % (95-98) L 05/14/17 06:33 ABG Base Excess 9 mEq/L (-2 to 3) H 05/14/17 06:33 Carbon Dioxide 31 mEq/L (23-29) H 05/15/17 07:00 Creatinine 0.35 mg/dL (0.60-1.20) L 05/15/17 07:00 Glucose 192 mg/dL (70-105) H 05/15/17 07:00 POC Glucose 134 (58-89) H 05/14/17 00:19 Lactic Acid 0.4 mmol/L (0.5-2.2) L 05/13/17 12:40 Calcium 7.9 mg/dL (8.6-10.3) L 05/15/17 07:00 AST 10 Units/L (13-39) L 05/13/17 12:40 B-Natriuretic Peptide 177 pg/mL (Less than 100) H 05/13/17 12:40 Serum Total Protein 6.1 g/dL (6.4-8.9) L 05/13/17 12:40 Albumin 3.2 g/dL (3.5-5.7) L 05/13/17 12:40 Lipase 4 Units/L (11-82) L 05/13/17 12:40 Urine Ketones Trace mg/dL (Negative) H 05/13/17 12:20 Urine Blood Trace (Negative) H 05/13/17 12:20 Urine Microscopic RBC 3-5 per hpf (0-3) H 05/13/17 12:20 Ur Squamous Epith Cells Many per lpf (None-Few) H 05/13/17 12:20 Vancomycin Trough 5.6 mcg/mL (10-20) L 05/15/17 01:26 General appearance: Present: no acute distress - Respiratory Respiratory exam: Present: decreased breath sounds - GI/Abdominal GI/Abdominal exam: Present: normal bowel sounds, soft - Extremities Exam Extremities exam: Present: normal capillary refill, normal inspection - Neurological Exam Neurological exam: Present: alert, oriented X3, strengths equal and symetr throughout - Skin Skin exam: Present: dry, pallor, warm Palliative Quality Palliative Quality: Screen for Code Status: Yes, Screen for Goals of Care: Yes, Screen for Pain: Yes, If Pain Regimen Started, Initiate Bowel Regimen: Yes, Screen for Nausea/Vomitting: Yes Code Status: 05/13/17 22:28 CODE [Resuscitation Status: Active] [RES] Routine Comment: Resuscitation Status: DNR-Comfort Care-Arrest 05/15/17 12:37 DNR [Resuscitation Status: Active] [RES] Routine Comment: Resuscitation Status: DNR-Comfort Care 05/15/17 12:55 CODE [Resuscitation Status: Active] [RES] Routine Comment: Resuscitation Status: [id number] - Labs CBC & Chem 7: 05/15/17 07:00 05/15/17 07:00 - ABG Interpretation ABG results: ABG ABG pH 7.45 pH Units (7.32-7.45) 05/14/17 06:33 ABG pCO2 49 mmHg (35-45) H 05/14/17 06:33 ABG pO2 48 mmHg (85-104) L* 05/14/17 06:33 ABG O2 Saturation 84 % (95-98) L 05/14/17 06:33 PT/INR, D-dimer PT 13.0 Seconds (9.4-12.1) H 05/13/17 12:40 Consult Discharge Plan - Plan Referrals: NONE,PCP [Primary Care Provider] -
[2017-05-16] MEDS: *HR* OxyCODONE Immed Rel 15 MG TABLET PO PRN ×2 (10:11→16:49)
[2017-05-16] MEDS ORDERED: *HR* Morphine Sulfate SR (12 HR) 15 MG TABLET.ER PO ONE (11:30)
[2017-05-16] MEDS ORDERED: *HR* Morphine Sulfate SR (12 HR) 15 MG TABLET.ER PO SCH (18:00)
[2017-05-16] MEDS: Budesonide/Formoterol 160/4.5 MDI IH SCH (19:47)
[2017-05-16] MEDS: Melatonin 3 MG TABLET PO SCH (20:22)
[2017-05-16] MEDS: *HR* Morphine Sulfate SR (12 HR) 15 MG TABLET.ER PO SCH (22:41)
--- NOTE | 2017-05-16 23:38 | Internal Med Progress Note ---
Date of Encounter: 05/16/16 Time of Encounter: 14:38 - Assessment and plan (1) Acute and chronic respiratory failure ([id number]-[id number]) Current Visit: No Status: Acute Assessment and plan: Continue to taper steroids. Do aerosol therapy as needed. Symbicort. Qualifiers: Respiratory failure complication: hypoxia and hypercapnia Qualified Code(s) : J96.21 - Acute and chronic respiratory failure with hypoxia; J96.22 - Acute and chronic respiratory failure with hypercapnia; J96.22 - Acute and chronic respiratory failure with hypercapnia; J96.22 - Acute and chronic respiratory failure with hypercapnia (2) Chronic anemia Current Visit: Yes Status: Acute (3) Goals of care, counseling/discussion Current Visit: Yes Status: Acute Assessment and plan: Patient requests to be hospice. Patient improving anticipate discharge home in 1-2 days. (4) Pneumonia Current Visit: Yes Status: Acute Qualifiers: Qualified Code(s): J18.9 - Pneumonia, unspecified organism (5) COPD (chronic obstructive pulmonary disease) Current Visit: No Status: Acute Qualifiers: COPD type: unspecified COPD Qualified Code(s): J44.9 - Chronic obstructive pulmonary disease, unspecified (6) Debility Current Visit: No Status: Acute (7) Anxiety Current Visit: No Status: Chronic (8) HTN (hypertension) Current Visit: No Status: Chronic Qualifiers: Hypertension type: other secondary hypertension Qualified Code(s): I15.8 - Other secondary hypertension (9) Rheumatoid arthritis Current Visit: No Status: Chronic Qualifiers: Rheumatoid arthritis location: hand Rheumatoid factor presence: with rheumatoid factor Laterality: bilateral Qualified Code(s): M05.741 - Rheumatoid arthritis with rheumatoid factor of right hand without organ or systems involvement; M05.742 - Rheumatoid arthritis with rheumatoid factor of left hand without organ or systems involvement; M05.742 - Rheumatoid arthritis with rheumatoid factor of left hand without organ or systems involvement; M05.742 - Rheumatoid arthritis with rheumatoid factor of left hand without organ or systems involvement; M05.742 - Rheumatoid arthritis with rheumatoid factor of left hand without organ or systems involvement - Subjective Interval history: Patient complains of chronic pain, breathing she states is good. - Constitutional Vitals: Temp Pulse Resp BP Pulse Ox 97.9 F 92 14 99/67 96 05/16/17 18:59 05/16/17 18:59 05/16/17 18:59 05/16/17 18:59 05/16/17 18:59 Exam: General appearance: appears uncomfortable Auscultation: bilateral: diminished breath sounds Cardiovascular: regular rate and rhythm Gastrointestinal: normoactive bowel sounds Musculoskeletal: other (Severe kyphoscoliosis) normal mental status, non-focal exam anxious, depressed Internal Medicine: Result - Labs CBC & Chem 7: 05/15/17 07:00 05/15/17 07:00 - ABG Interpretation ABG results: ABG ABG pH 7.45 pH Units (7.32-7.45) 05/14/17 06:33 ABG pCO2 49 mmHg (35-45) H 05/14/17 06:33 ABG pO2 48 mmHg (85-104) L* 05/14/17 06:33 ABG O2 Saturation 84 % (95-98) L 05/14/17 06:33 PT/INR, D-dimer PT 13.0 Seconds (9.4-12.1) H 05/13/17 12:40 Consult Discharge Plan - Plan Referrals: NONE,PCP [Primary Care Provider] -
[2017-05-17] MEDS: Ipratropium/Albuterol Neb 3 ML IH SCH ×6 (00:26→20:12)
[2017-05-17] MEDS: *HR* OxyCODONE Immed Rel 15 MG TABLET PO PRN ×3 (03:18→13:01)
[2017-05-17] MEDS: *HR* Heparin 5,000 UNIT/ML VIAL SQ SCH ×2 (06:30→17:17)
[2017-05-17] MEDS: *HR* Morphine Sulfate SR (12 HR) 15 MG TABLET.ER PO SCH ×2 (06:30→17:17)
[2017-05-17] MEDS: Budesonide/Formoterol 160/4.5 MDI IH SCH ×2 (08:04→20:12)
[2017-05-17] MEDS: ALPRAZolam 1 MG TABLET PO SCH ×3 (08:14→21:30)
[2017-05-17] MEDS: Famotidine 20 MG TABLET PO SCH ×2 (08:15→21:30)
[2017-05-17] MEDS: Metoprolol XL (24 HR) Succ 25 MG TAB.ER.24H PO SCH (08:15)
--- NOTE | 2017-05-17 11:26 | Palliative Progress Note ---
Date of Encounter: 05/17/17 Time of Encounter: 11:00 - Assessment and plan (1) Goals of care, counseling/discussion Current Visit: Yes Status: Acute Assessment and plan: When stable for discharge, pt will be going home with [facility] care. Will D/W hospitalist today timeline. She states she does not feel ready to go home. Attempted to touch base with brother, Jonathon, her caregiver, telephone is ringing busy. Will continue to try and contact. (2) Chronic pain Current Visit: No Status: Chronic Assessment and plan: MS Mckoy started yesterday but she was not given PM dose. Did have am dose this am. Has received Oxycodone x4 last 24 hours. This was increased t 15mg yesterday. She continues to c/o back pain and asking for med pain medication. Explained changed made yesterday, and that medications will need titrated slowly , can cause her some respiratory depression if oversedated. She verbalized understanding. Qualifiers: Chronic pain type: chronic pain syndrome Qualified Code(s): G89.4 - Chronic pain syndrome (3) Anxiety Current Visit: No Status: Chronic Assessment and plan: Remains on Xanax scheduled. Has Lorazepam PRN - only utilized x1 last 24 hours (4) Acute exacerbation of chronic obstructive airways disease Current Visit: No Status: Acute (5) Acute and chronic respiratory failure (sfxha-fy-nniuclt) Current Visit: No Status: Acute Qualifiers: Respiratory failure complication: hypoxia and hypercapnia Qualified Code(s) : J96.21 - Acute and chronic respiratory failure with hypoxia; J96.22 - Acute and chronic respiratory failure with hypercapnia; J96.22 - Acute and chronic respiratory failure with hypercapnia; J96.22 - Acute and chronic respiratory failure with hypercapnia - Time Spent With Patient Total time spent is greater than 50% in coordination of care (as documented) at patient's floor/unit and/or counseling patient: 25 - 35 minutes - Subjective Interval history: Patient resting quietly with eyes closed when I arrived into room. Awakens easily. She still c/o back pain and asking for medication. States she doesn't feel ready to go home. States she has been coughing up yellow phlegm. Nursing reports she constantly is asking for pain medication. - Constitutional Vitals: Abnormal lab results RBC 3.48 M/mcL (3.82-4.97) L 05/15/17 07:00 Hgb 8.6 g/dL (11.5-15.4) L 05/15/17 07:00 Hct 29.0 % (35.3-44.9) L 05/15/17 07:00 MCH 24.7 pg (28.0-33.3) L 05/15/17 07:00 MCHC 29.7 g/dL (31.6-35.5) L 05/15/17 07:00 RDW 17.7 % (11.5-14.5) H 05/15/17 07:00 MPV 9.0 fL (9.4-12.4) L 05/15/17 07:00 Band Neutrophils % 24.0 % (0-4) H 05/13/17 12:40 Lymphocytes # 0.3 K/mcL (0.6-4.6) L 05/15/17 07:00 Nucleated RBCs/100 WBC 0.1 /100 WBC (0) H 05/13/17 12:40 PT 13.0 Seconds (9.4-12.1) H 05/13/17 12:40 ABG pCO2 49 mmHg (35-45) H 05/14/17 06:33 ABG pO2 48 mmHg (85-104) L* 05/14/17 06:33 ABG HCO3 34 mEq/L (21-27) H 05/14/17 06:33 ABG Total CO2 36 mEq/L (20-26) H 05/14/17 06:33 ABG O2 Saturation 84 % (95-98) L 05/14/17 06:33 ABG Base Excess 9 mEq/L (-2 to 3) H 05/14/17 06:33 Carbon Dioxide 31 mEq/L (23-29) H 05/15/17 07:00 Creatinine 0.35 mg/dL (0.60-1.20) L 05/15/17 07:00 Glucose 192 mg/dL (70-105) H 05/15/17 07:00 POC Glucose 139 (58-89) H 05/15/17 20:50 Lactic Acid 0.4 mmol/L (0.5-2.2) L 05/13/17 12:40 Calcium 7.9 mg/dL (8.6-10.3) L 05/15/17 07:00 AST 10 Units/L (13-39) L 05/13/17 12:40 B-Natriuretic Peptide 177 pg/mL (Less than 100) H 05/13/17 12:40 Serum Total Protein 6.1 g/dL (6.4-8.9) L 05/13/17 12:40 Albumin 3.2 g/dL (3.5-5.7) L 05/13/17 12:40 Lipase 4 Units/L (11-82) L 05/13/17 12:40 Urine Ketones Trace mg/dL (Negative) H 05/13/17 12:20 Urine Blood Trace (Negative) H 05/13/17 12:20 Urine Microscopic RBC 3-5 per hpf (0-3) H 05/13/17 12:20 Ur Squamous Epith Cells Many per lpf (None-Few) H 05/13/17 12:20 Vancomycin Trough 5.6 mcg/mL (10-20) L 05/15/17 01:26 General appearance: Present: no acute distress - Respiratory Respiratory exam: Present: decreased breath sounds, CTAB - Cardiovascular Cardiovascular exam: Present: +S1, +S2 - GI/Abdominal GI/Abdominal exam: Present: normal bowel sounds, soft - Extremities Exam Extremities exam: Present: normal capillary refill, normal inspection - Neurological Exam Neurological exam: Present: alert, oriented X3, strengths equal and symetr throughout - Psychiatric Psychiatric exam: Present: anxious - Skin Skin exam: Present: dry, warm Palliative Quality Palliative Quality: Screen for Code Status: Yes, Screen for Goals of Care: Yes, Screen for Pain: Yes, If Pain Regimen Started, Initiate Bowel Regimen: Yes, Screen for Nausea/Vomitting: Yes Code Status: 05/13/17 22:28 CODE [Resuscitation Status: Active] [RES] Routine Comment: Resuscitation Status: DNR-Comfort Care-Arrest 05/15/17 12:37 DNR [Resuscitation Status: Active] [RES] Routine Comment: Resuscitation Status: DNR-Comfort Care 05/15/17 12:55 CODE [Resuscitation Status: Active] [RES] Routine Comment: Resuscitation Status: [id number] - Labs CBC & Chem 7: 05/15/17 07:00 05/15/17 07:00 Labs: Laboratory Results - last 24 hr 05/15/17 20:50 POC Glucose 139 H - ABG Interpretation ABG results: ABG ABG pH 7.45 pH Units (7.32-7.45) 05/14/17 06:33 ABG pCO2 49 mmHg (35-45) H 05/14/17 06:33 ABG pO2 48 mmHg (85-104) L* 05/14/17 06:33 ABG O2 Saturation 84 % (95-98) L 05/14/17 06:33 PT/INR, D-dimer PT 13.0 Seconds (9.4-12.1) H 05/13/17 12:40 Consult Discharge Plan - Plan Referrals: NONE,PCP [Primary Care Provider] -
[2017-05-17] MEDS: predniSONE 20 MG TABLET PO SCH (13:41)
[2017-05-17] MEDS: *HR* LORazepam Oral Conc 2 MG/ML SL PRN (18:59)
[2017-05-17] MEDS: Melatonin 3 MG TABLET PO SCH (21:30)
--- NOTE | 2017-05-17 23:29 | Internal Med Progress Note ---
Date of Encounter: 05/17/17 Time of Encounter: 15:39 - Assessment and plan (1) Acute and chronic respiratory failure ([id number]) Current Visit: No Status: Acute Assessment and plan: Continue to taper steroids. Do aerosol therapy as needed. Symbicort. Anticipate discharge home tomorrow if patient does not acutely decline Plan is for home with hospice Qualifiers: Respiratory failure complication: hypoxia and hypercapnia Qualified Code(s) : J96.21 - Acute and chronic respiratory failure with hypoxia; J96.22 - Acute and chronic respiratory failure with hypercapnia; J96.22 - Acute and chronic respiratory failure with hypercapnia; J96.22 - Acute and chronic respiratory failure with hypercapnia (2) Chronic anemia Current Visit: Yes Status: Acute (3) Goals of care, counseling/discussion Current Visit: Yes Status: Acute Assessment and plan: Patient requests to be hospice. Patient improving anticipate discharge home in 1-2 days. (4) Pneumonia Current Visit: Yes Status: Acute Qualifiers: Pneumonia type: due to unspecified organism Laterality: unspecified laterality Lung location: unspecified part of lung Qualified Code(s): J18.9 - Pneumonia, unspecified organism (5) COPD (chronic obstructive pulmonary disease) Current Visit: No Status: Acute Qualifiers: COPD type: unspecified COPD Qualified Code(s): J44.9 - Chronic obstructive pulmonary disease, unspecified (6) Debility Current Visit: No Status: Acute (7) Anxiety Current Visit: No Status: Chronic (8) HTN (hypertension) Current Visit: No Status: Chronic Qualifiers: Hypertension type: other secondary hypertension Qualified Code(s): I15.8 - Other secondary hypertension (9) Rheumatoid arthritis Current Visit: No Status: Chronic Qualifiers: Rheumatoid arthritis location: hand Rheumatoid factor presence: with rheumatoid factor Laterality: bilateral Qualified Code(s): M05.741 - Rheumatoid arthritis with rheumatoid factor of right hand without organ or systems involvement; M05.742 - Rheumatoid arthritis with rheumatoid factor of left hand without organ or systems involvement; M05.742 - Rheumatoid arthritis with rheumatoid factor of left hand without organ or systems involvement; M05.742 - Rheumatoid arthritis with rheumatoid factor of left hand without organ or systems involvement; M05.742 - Rheumatoid arthritis with rheumatoid factor of left hand without organ or systems involvement - Subjective Interval history: Patient complains of chronic pain, breathing she states is good. 05/17: no complaints of dyspnea. Is continuously asking nursing and Palliative service for increase in pain medications. - Constitutional Vitals: Temp Pulse Resp BP Pulse Ox 98.2 F 98 18 118/79 94 05/17/17 18:49 05/17/17 18:49 05/17/17 20:12 05/17/17 18:49 05/17/17 20:12 Exam: General appearance: appears uncomfortable Auscultation: bilateral: diminished breath sounds Cardiovascular: regular rate and rhythm Gastrointestinal: normoactive bowel sounds Musculoskeletal: other (Severe kyphoscoliosis) normal mental status, non-focal exam anxious Internal Medicine: Result - Labs CBC & Chem 7: 05/15/17 07:00 05/15/17 07:00 - ABG Interpretation ABG results: ABG ABG pH 7.45 pH Units (7.32-7.45) 05/14/17 06:33 ABG pCO2 49 mmHg (35-45) H 05/14/17 06:33 ABG pO2 48 mmHg (85-104) L* 05/14/17 06:33 ABG O2 Saturation 84 % (95-98) L 05/14/17 06:33 PT/INR, D-dimer PT 13.0 Seconds (9.4-12.1) H 05/13/17 12:40 Consult Discharge Plan - Plan Referrals: NONE,PCP [Primary Care Provider] -
[2017-05-18] MEDS: Ipratropium/Albuterol Neb 3 ML IH SCH ×4 (00:03→11:07)
[2017-05-18] MEDS: *HR* OxyCODONE Immed Rel 15 MG TABLET PO PRN ×3 (03:45→11:37)
[2017-05-18] MEDS: *HR* Morphine Sulfate SR (12 HR) 15 MG TABLET.ER PO SCH (05:58)
[2017-05-18] MEDS: *HR* Heparin 5,000 UNIT/ML VIAL SQ SCH (05:58)
[2017-05-18] MEDS: predniSONE 20 MG TABLET PO SCH (07:40)
[2017-05-18] MEDS: Famotidine 20 MG TABLET PO SCH (07:40)
[2017-05-18] MEDS: Metoprolol XL (24 HR) Succ 25 MG TAB.ER.24H PO SCH (07:40)
[2017-05-18] MEDS: ALPRAZolam 1 MG TABLET PO SCH ×2 (07:41→13:59)
[2017-05-18] MEDS: Budesonide/Formoterol 160/4.5 MDI IH SCH (07:54)
--- NOTE | 2017-05-18 09:09 | Discharge Summary ---
Date of Encounter: 05/18/17 Time of Encounter: 10:57 - Discharge Diagnosis (1) Acute and chronic respiratory failure ([id number]) Priority: Primary Status: Acute Qualifiers: Respiratory failure complication: hypoxia and hypercapnia Qualified Code(s) : J96.21 - Acute and chronic respiratory failure with hypoxia; J96.22 - Acute and chronic respiratory failure with hypercapnia; J96.22 - Acute and chronic respiratory failure with hypercapnia; J96.22 - Acute and chronic respiratory failure with hypercapnia (2) Chronic anemia Priority: Secondary Status: Acute (3) Goals of care, counseling/discussion Priority: Secondary Status: Acute (4) Pneumonia Priority: Secondary Status: Acute Qualifiers: Pneumonia type: due to unspecified organism Laterality: unspecified laterality Lung location: unspecified part of lung Qualified Code(s): J18.9 - Pneumonia, unspecified organism (5) COPD (chronic obstructive pulmonary disease) Priority: Secondary Status: Acute Qualifiers: COPD type: unspecified COPD Qualified Code(s): J44.9 - Chronic obstructive pulmonary disease, unspecified (6) Debility Priority: Secondary Status: Acute (7) Anxiety Priority: Secondary Status: Chronic (8) HTN (hypertension) Priority: Secondary Status: Chronic Qualifiers: Hypertension type: other secondary hypertension Qualified Code(s): I15.8 - Other secondary hypertension (9) Rheumatoid arthritis Priority: Secondary Status: Chronic Qualifiers: Rheumatoid arthritis location: hand Rheumatoid factor presence: with rheumatoid factor Laterality: bilateral Qualified Code(s): M05.741 - Rheumatoid arthritis with rheumatoid factor of right hand without organ or systems involvement; M05.742 - Rheumatoid arthritis with rheumatoid factor of left hand without organ or systems involvement; M05.742 - Rheumatoid arthritis with rheumatoid factor of left hand without organ or systems involvement; M05.742 - Rheumatoid arthritis with rheumatoid factor of left hand without organ or systems involvement; M05.742 - Rheumatoid arthritis with rheumatoid factor of left hand without organ or systems involvement - Discharge Medications Prescriptions: Ipratropium/Albuterol Neb [Duoneb] 3 ml IH Q4HR PRN 4 Days #24 vial.neb PRN Reason: Shortness Of Breath/Wheezing OxyCODONE Immed Rel [Roxicodone 15 MG] 15 mg PO Q6HR PRN 4 Days #24 tablet PRN Reason: breakthough pain Morphine Sulfate SR (12 HR) [MS Contin] 1 tab PO Q12HR 4 Days #8 tab Alendronate Sodium [Fosamax] 70 mg PO QWEEK #4 tablet ALPRAZolam [Xanax 1 MG Tablet] 1 mg PO TID 4 Days #12 tablet Budesonide/Formoterol 160/4.5 [Symbicort 160/4.5] 2 puff IH BIDR #1 inhaler Buspirone HCl [Buspar] 15 mg PO BID #60 tablet Cholecalciferol (Vitamin D3) [Vitamin D3] 10,000 unit PO 2XW #30 tablet Denosumab [Prolia (For Outpatient Infusion)] 80 mg SQ Q6M #1 syringe Esomeprazole Magnesium [Nexium] 40 mg PO DAILY #30 capsule. Ferrous Sulfate 325 mg PO BIDWM #60 tablet Guaifenesin [Mucinex] 1,200 mg PO BID #10 tab.er.12h Lisinopril [Zestril] 5 mg PO DAILY #30 tablet Melatonin/Pyridoxine HCl (B6) [Melatonin 5 mg Tablet] 5 mg PO HS #30 tablet Metoprolol XL (24 HR) Succ [Toprol Xl] 25 mg PO DAILY #30 tab.er.24h Montelukast [Singulair] 10 mg PO DAILY #30 tablet Polyethylene Glycol 3350 [MiraLAX] 17 gm PO DAILY #30 powd.pack PredniSONE [Cassandra] 5 mg PO DAILY #20 tablet. Roflumilast [Daliresp] 500 mcg PO DAILY #30 tablet Sennosides/Docusate Sodium [Senna Plus] 1 each PO BID #8 tablet Sennosides/Docusate Sodium [Senna Plus] 1 each PO DAILY #8 tablet Tiotropium [Spiriva] 18 mcg IH DAILY #1 inh Home Medications: ALPRAZolam [Xanax 1 MG Tablet] 1 mg PO TID PRN 05/13/17 [History] ALPRAZolam [Xanax 1 MG Tablet] 1 mg PO TID 4 Days #12 tablet 05/18/17 [Rx] Alendronate Sodium [Fosamax] 70 mg PO QWEEK #4 tablet 05/18/17 [Rx] Budesonide/Formoterol 160/4.5 [Symbicort 160/4.5] 2 puff IH BIDR #1 inhaler [Rx] Buspirone HCl [Buspar] 15 mg PO BID #60 tablet 05/18/17 [Rx] Cholecalciferol (Vitamin D3) [Vitamin D3] 10,000 unit PO 2XW #30 tablet [Rx] Denosumab [Prolia (For Outpatient Infusion)] 80 mg SQ Q6M #1 syringe 05/18/17 [ Rx] Esomeprazole Magnesium [Nexium] 40 mg PO DAILY #30 capsule. 05/18/17 [Rx] Ferrous Sulfate 325 mg PO BIDWM #60 tablet 05/18/17 [Rx] Guaifenesin [Mucinex] 1,200 mg PO BID #10 tab.er.12h 05/18/17 [Rx] Ipratropium/Albuterol Neb [Duoneb] 3 ml IH Q4HR PRN 4 Days #24 vial.neb [Rx] Lisinopril [Zestril] 5 mg PO DAILY #30 tablet 05/18/17 [Rx] Melatonin/Pyridoxine HCl (B6) [Melatonin 5 mg Tablet] 5 mg PO HS #30 tablet [Rx] Metoprolol XL (24 HR) Succ [Toprol Xl] 25 mg PO DAILY #30 tab.er.24h 05/18/17 [ Rx] Montelukast [Singulair] 10 mg PO DAILY #30 tablet 05/18/17 [Rx] Morphine Sulfate SR (12 HR) [MS Contin] 1 tab PO Q12HR 4 Days #8 tab 05/18/17 [ Rx] OxyCODONE Immed Rel [Roxicodone 15 MG] 15 mg PO Q6HR PRN 4 Days #24 tablet 05/18 [Rx] Polyethylene Glycol 3350 [MiraLAX] 17 gm PO DAILY #30 powd.pack 05/18/17 [Rx] PredniSONE [Cassandra] 5 mg PO DAILY #20 tablet. 05/18/17 [Rx] Roflumilast [Daliresp] 500 mcg PO DAILY #30 tablet 05/18/17 [Rx] Sennosides/Docusate Sodium [Senna Plus] 1 each PO BID #8 tablet 05/18/17 [Rx] Sennosides/Docusate Sodium [Senna Plus] 1 each PO DAILY #8 tablet 05/18/17 [Rx] Tiotropium [Spiriva] 18 mcg IH DAILY #1 inh 05/18/17 [Rx] Allergies/Adverse Reactions: 3 Allergy/AdvReac Type Severity Reaction Status Date / Time acetaminophen [From Tylenol] Allergy Rash Verified 09/23/15 06:03 chlordiazepoxide Allergy Rash Verified 09/23/15 06:03 [From Librium] Date of admission: 05/13/17 16:47 Primary care physician: PCP NONE Consults: 05/15/17 10:48 Consult to Palliative Care [CONS] Routine Comment: Consulting Provider: Palliative Care [facility] Reason for Consult: future goals and planning, severe COPD Call Completed: No Discharging clinician: Pilo Clancy - Patient Status Disposition: Hospice - Home Condition: Critical Functional capacity at discharge: uses cane/walker Overall status at discharge: patient is back to baseline - Discharge Instructions Follow Up With: NONE,PCP [Primary Care Provider] - (Hospice no appt. necessary. Thank you) - Diet and Activity Activity: increase activity as tolerated Diet: low fat, low cholesterol, low salt diet Hospital course: Ms. Stark is a 57 year old female with PMH of end-stage COPD, HTN, and RA [facility]. The patient has had several hospitalizations and was just discharged on 04/29/17 for respiratory failure and COPD exacerbation. Per [facility] [place] SBP in 50's and O2 sat at 81 on 4L O2 nasal cannula, and also had a temp of 104 prior to admission. Pt was somnolent but awake in ED and O2 sat was 88 on presentation. BP was 80-90's/50-70's. The patient was placed on BiPAP and given 3L of fluid and epinephrine and vitals improved.The patient wasstarted on on norepinephrine. CXR and CTA shows worsening bilateral airspace disease with apical and right lower lobe atelectasis suspicious for aspiration pneumonitis. Blood cultures obtained and she was started on emperic antibiotic therapy. Palliative service was consulted because of patient's poor prognosis.She requested to pursue more hospice oriented care. She requested to return home to live with her brother. Blood cultures and urine antigens from 05/13/26 were negative growth. She was medically stable to transfer to medical floor. Patient was able to transition to oral Prednisone without issue. She remained afebrile and leukocytosis resolved. She was stable for discharge with home hospice arrangements made and steroid taper. - Time Spent with Patient Total time spent providing and/or coordinating discharge services: - Constitutional Vitals: Temp Pulse Resp BP Pulse Ox 98.2 F 88 18 120/71 93 05/18/17 07:23 05/18/17 07:23 05/18/17 07:23 05/18/17 07:23 05/18/17 07:23 Exam: General appearance: comfortable, eating breakfast without issue. Auscultation: bilateral: diminished breath sounds Cardiovascular: regular rate and rhythm Gastrointestinal: normoactive bowel sounds Musculoskeletal: other (Severe kyphoscoliosis) normal mental status, non-focal exam anxious
--- NOTE | 2017-05-18 11:23 | Physician Discharge Referral ---
Home Health/Hosp Referral Info Transfer to: Hospice Provider in Charge Post Discharge: PCP - Diagnosis (1) Acute and chronic respiratory failure ([id number]) Priority: Primary Status: Acute (2) Chronic anemia Priority: Secondary Status: Acute (3) Goals of care, counseling/discussion Priority: Secondary Status: Acute (4) Pneumonia Priority: Secondary Status: Acute (5) COPD (chronic obstructive pulmonary disease) Priority: Secondary Status: Acute (6) Debility Priority: Secondary Status: Acute (7) Anxiety Priority: Secondary Status: Chronic (8) HTN (hypertension) Priority: Secondary Status: Chronic (9) Rheumatoid arthritis Priority: Secondary Status: Chronic - Respiratory Orders Oxygen / L per min (titrate as needed for clinical improvement.) Smoking Cessation: Smoking cessation has been advised. For more information, call the [facility] Tobacco Quit Line at 4-850-HLGX-NOW. - Diet/Nutrition Diet/Nutrition Orders: Cardiac - Activity Activity Orders: Up ad raul, Walker - Services Needed Following services are medically necessary services: Nursing, Home Health Aide, Physical Therapy, Occupational Therapy - Transfer Medications Prescriptions: Ipratropium/Albuterol Neb [Duoneb] 3 ml IH Q4HR PRN 4 Days #24 vial.neb PRN Reason: Shortness Of Breath/Wheezing OxyCODONE Immed Rel [Roxicodone 15 MG] 15 mg PO Q6HR PRN 4 Days #24 tablet PRN Reason: breakthough pain Morphine Sulfate SR (12 HR) [MS Contin] 1 tab PO Q12HR 4 Days #8 tab Alendronate Sodium [Fosamax] 70 mg PO QWEEK #4 tablet ALPRAZolam [Xanax 1 MG Tablet] 1 mg PO TID 4 Days #12 tablet Budesonide/Formoterol 160/4.5 [Symbicort 160/4.5] 2 puff IH BIDR #1 inhaler Buspirone HCl [Buspar] 15 mg PO BID #60 tablet Cholecalciferol (Vitamin D3) [Vitamin D3] 10,000 unit PO 2XW #30 tablet Denosumab [Prolia (For Outpatient Infusion)] 80 mg SQ Q6M #1 syringe Esomeprazole Magnesium [Nexium] 40 mg PO DAILY #30 capsule.dr Ferrous Sulfate 325 mg PO BIDWM #60 tablet Guaifenesin [Mucinex] 1,200 mg PO BID #10 tab.er.12h Lisinopril [Zestril] 5 mg PO DAILY #30 tablet Melatonin/Pyridoxine HCl (B6) [Melatonin 5 mg Tablet] 5 mg PO HS #30 tablet Metoprolol XL (24 HR) Succ [Toprol Xl] 25 mg PO DAILY #30 tab.er.24h Montelukast [Singulair] 10 mg PO DAILY #30 tablet Polyethylene Glycol 3350 [MiraLAX] 17 gm PO DAILY #30 powd.pack PredniSONE [Cassandra] 5 mg PO DAILY #20 tablet. Roflumilast [Daliresp] 500 mcg PO DAILY #30 tablet Sennosides/Docusate Sodium [Senna Plus] 1 each PO BID #8 tablet Sennosides/Docusate Sodium [Senna Plus] 1 each PO DAILY #8 tablet Tiotropium [Spiriva] 18 mcg IH DAILY #1 inh Home Medications: ALPRAZolam [Xanax 1 MG Tablet] 1 mg PO TID PRN 05/13/17 [History] ALPRAZolam [Xanax 1 MG Tablet] 1 mg PO TID 4 Days #12 tablet 05/18/17 [Rx] Alendronate Sodium [Fosamax] 70 mg PO QWEEK #4 tablet 05/18/17 [Rx] Budesonide/Formoterol 160/4.5 [Symbicort 160/4.5] 2 puff IH BIDR #1 inhaler [Rx] Buspirone HCl [Buspar] 15 mg PO BID #60 tablet 05/18/17 [Rx] Cholecalciferol (Vitamin D3) [Vitamin D3] 10,000 unit PO 2XW #30 tablet [Rx] Denosumab [Prolia (For Outpatient Infusion)] 80 mg SQ Q6M #1 syringe 05/18/17 [ Rx] Esomeprazole Magnesium [Nexium] 40 mg PO DAILY #30 capsule. 05/18/17 [Rx] Ferrous Sulfate 325 mg PO BIDWM #60 tablet 05/18/17 [Rx] Guaifenesin [Mucinex] 1,200 mg PO BID #10 tab.er.12h 05/18/17 [Rx] Ipratropium/Albuterol Neb [Duoneb] 3 ml IH Q4HR PRN 4 Days #24 vial.neb [Rx] Lisinopril [Zestril] 5 mg PO DAILY #30 tablet 05/18/17 [Rx] Melatonin/Pyridoxine HCl (B6) [Melatonin 5 mg Tablet] 5 mg PO HS #30 tablet [Rx] Metoprolol XL (24 HR) Succ [Toprol Xl] 25 mg PO DAILY #30 tab.er.24h 05/18/17 [ Rx] Montelukast [Singulair] 10 mg PO DAILY #30 tablet 05/18/17 [Rx] Morphine Sulfate SR (12 HR) [MS Contin] 1 tab PO Q12HR 4 Days #8 tab 05/18/17 [ Rx] OxyCODONE Immed Rel [Roxicodone 15 MG] 15 mg PO Q6HR PRN 4 Days #24 tablet 05/18 [Rx] Polyethylene Glycol 3350 [MiraLAX] 17 gm PO DAILY #30 powd.pack 05/18/17 [Rx] PredniSONE [Cassandra] 5 mg PO DAILY #20 tablet. 05/18/17 [Rx] Roflumilast [Daliresp] 500 mcg PO DAILY #30 tablet 05/18/17 [Rx] Sennosides/Docusate Sodium [Senna Plus] 1 each PO BID #8 tablet 05/18/17 [Rx] Sennosides/Docusate Sodium [Senna Plus] 1 each PO DAILY #8 tablet 05/18/17 [Rx] Tiotropium [Spiriva] 18 mcg IH DAILY #1 inh 05/18/17 [Rx] Allergies/Adverse Reactions: 3 Allergy/AdvReac Type Severity Reaction Status Date / Time acetaminophen [From Tylenol] Allergy Rash Verified 09/23/15 06:03 chlordiazepoxide Allergy Rash Verified 09/23/15 06:03 [From Librium] Certification: Further, I certify that my clinical findings support that this patient is homebound (i.e. absences from home require considerable and taxing effort and are for medical reasons or tenriism services or infrequently or short duration when for other reasons) because: Homebound Reason: Severity of cardiac or pulmonary status limits activity tolerance Attestation: My signature below is to certify that this patient is under my care and that I, or nurse practitioner, or a physician's refinery operator assistant working with me, has a face-to -face encounter with this patient.
--- NOTE | 2017-05-18 12:43 | Palliative Progress Note ---
Date of Encounter: 05/18/17 Time of Encounter: 10:15 - Assessment and plan (1) Chronic pain Current Visit: No Status: Chronic Assessment and plan: Continue current meds. States she is tolerating MS Contin well. Utilized breakthrough Oxycodone x4 last 24 hours. Qualifiers: Chronic pain type: chronic pain syndrome Qualified Code(s): G89.4 - Chronic pain syndrome (2) Anxiety Current Visit: No Status: Chronic Assessment and plan: Continue Xanax as scheduled. (3) Acute exacerbation of chronic obstructive airways disease Current Visit: No Status: Acute (4) Acute and chronic respiratory failure ([id number]) Current Visit: No Status: Acute Qualifiers: Respiratory failure complication: hypoxia and hypercapnia Qualified Code(s) : J96.21 - Acute and chronic respiratory failure with hypoxia; J96.22 - Acute and chronic respiratory failure with hypercapnia; J96.22 - Acute and chronic respiratory failure with hypercapnia; J96.22 - Acute and chronic respiratory failure with hypercapnia (5) Goals of care, counseling/discussion Current Visit: Yes Status: Acute Assessment and plan: D/W Dr. Clancy, she will be discharged today with [facility] care. Spoke with brother Jonathon via phone - he will be here to meet [facility] at 1300 - pt can be discharged after that via ambulance. - Time Spent With Patient Total time spent is greater than 50% in coordination of care (as documented) at patient's floor/unit and/or counseling patient: 25 - 35 minutes - Subjective Interval history: Patient awake - appears in no distress. No family present. States she had decent night. - Constitutional Vitals: Abnormal lab results RBC 3.48 M/mcL (3.82-4.97) L 05/15/17 07:00 Hgb 8.6 g/dL (11.5-15.4) L 05/15/17 07:00 Hct 29.0 % (35.3-44.9) L 05/15/17 07:00 MCH 24.7 pg (28.0-33.3) L 05/15/17 07:00 MCHC 29.7 g/dL (31.6-35.5) L 05/15/17 07:00 RDW 17.7 % (11.5-14.5) H 05/15/17 07:00 MPV 9.0 fL (9.4-12.4) L 05/15/17 07:00 Band Neutrophils % 24.0 % (0-4) H 05/13/17 12:40 Lymphocytes # 0.3 K/mcL (0.6-4.6) L 05/15/17 07:00 Nucleated RBCs/100 WBC 0.1 /100 WBC (0) H 05/13/17 12:40 PT 13.0 Seconds (9.4-12.1) H 05/13/17 12:40 ABG pCO2 49 mmHg (35-45) H 05/14/17 06:33 ABG pO2 48 mmHg (85-104) L* 05/14/17 06:33 ABG HCO3 34 mEq/L (21-27) H 05/14/17 06:33 ABG Total CO2 36 mEq/L (20-26) H 05/14/17 06:33 ABG O2 Saturation 84 % (95-98) L 05/14/17 06:33 ABG Base Excess 9 mEq/L (-2 to 3) H 05/14/17 06:33 Carbon Dioxide 31 mEq/L (23-29) H 05/15/17 07:00 Creatinine 0.35 mg/dL (0.60-1.20) L 05/15/17 07:00 Glucose 192 mg/dL (70-105) H 05/15/17 07:00 POC Glucose 96 (58-89) H 05/18/17 07:26 Lactic Acid 0.4 mmol/L (0.5-2.2) L 05/13/17 12:40 Calcium 7.9 mg/dL (8.6-10.3) L 05/15/17 07:00 AST 10 Units/L (13-39) L 05/13/17 12:40 B-Natriuretic Peptide 177 pg/mL (Less than 100) H 05/13/17 12:40 Serum Total Protein 6.1 g/dL (6.4-8.9) L 05/13/17 12:40 Albumin 3.2 g/dL (3.5-5.7) L 05/13/17 12:40 Lipase 4 Units/L (11-82) L 05/13/17 12:40 Urine Ketones Trace mg/dL (Negative) H 05/13/17 12:20 Urine Blood Trace (Negative) H 05/13/17 12:20 Urine Microscopic RBC 3-5 per hpf (0-3) H 05/13/17 12:20 Ur Squamous Epith Cells Many per lpf (None-Few) H 05/13/17 12:20 Vancomycin Trough 5.6 mcg/mL (10-20) L 05/15/17 01:26 General appearance: Present: no acute distress - Respiratory Respiratory exam: Present: decreased breath sounds, CTAB - Cardiovascular Cardiovascular exam: Present: +S1, +S2 - GI/Abdominal GI/Abdominal exam: Present: normal bowel sounds, soft - Extremities Exam Extremities exam: Present: normal capillary refill, normal inspection Palliative Quality Palliative Quality: Screen for Code Status: Yes, Screen for Goals of Care: Yes, Screen for Pain: Yes, If Pain Regimen Started, Initiate Bowel Regimen: Yes, Screen for Nausea/Vomitting: Yes Code Status: 05/13/17 22:28 CODE [Resuscitation Status: Active] [RES] Routine Comment: Resuscitation Status: DNR-Comfort Care-Arrest 05/15/17 12:37 DNR [Resuscitation Status: Active] [RES] Routine Comment: Resuscitation Status: DNR-Comfort Care 05/15/17 12:55 CODE [Resuscitation Status: Active] [RES] Routine Comment: Resuscitation Status: [id number] - Labs CBC & Chem 7: 05/15/17 07:00 05/15/17 07:00 Labs: Laboratory Results - last 24 hr 05/18/17 07:26 POC Glucose 96 H - ABG Interpretation ABG results: ABG ABG pH 7.45 pH Units (7.32-7.45) 05/14/17 06:33 ABG pCO2 49 mmHg (35-45) H 05/14/17 06:33 ABG pO2 48 mmHg (85-104) L* 05/14/17 06:33 ABG O2 Saturation 84 % (95-98) L 05/14/17 06:33 PT/INR, D-dimer PT 13.0 Seconds (9.4-12.1) H 05/13/17 12:40 Consult Discharge Plan - Plan Referrals: NONE,PCP [Primary Care Provider] - (Hospice no appt. necessary. Thank you) Prescriptions: Ipratropium/Albuterol Neb [Duoneb] 3 ml IH Q4HR PRN 4 Days #24 vial.neb PRN Reason: Shortness Of Breath/Wheezing OxyCODONE Immed Rel [Roxicodone 15 MG] 15 mg PO Q6HR PRN 4 Days #24 tablet PRN Reason: breakthough pain Morphine Sulfate SR (12 HR) [MS Contin] 1 tab PO Q12HR 4 Days #8 tab Alendronate Sodium [Fosamax] 70 mg PO QWEEK #4 tablet ALPRAZolam [Xanax 1 MG Tablet] 1 mg PO TID 4 Days #12 tablet Budesonide/Formoterol 160/4.5 [Symbicort 160/4.5] 2 puff IH BIDR #1 inhaler Buspirone HCl [Buspar] 15 mg PO BID #60 tablet Cholecalciferol (Vitamin D3) [Vitamin D3] 10,000 unit PO 2XW #30 tablet Denosumab [Prolia (For Outpatient Infusion)] 80 mg SQ Q6M #1 syringe Esomeprazole Magnesium [Nexium] 40 mg PO DAILY #30 capsule. Ferrous Sulfate 325 mg PO BIDWM #60 tablet Guaifenesin [Mucinex] 1,200 mg PO BID #10 tab.er.12h Lisinopril [Zestril] 5 mg PO DAILY #30 tablet Melatonin/Pyridoxine HCl (B6) [Melatonin 5 mg Tablet] 5 mg PO HS #30 tablet Metoprolol XL (24 HR) Succ [Toprol Xl] 25 mg PO DAILY #30 tab.er.24h Montelukast [Singulair] 10 mg PO DAILY #30 tablet Polyethylene Glycol 3350 [MiraLAX] 17 gm PO DAILY #30 powd.pack PredniSONE [Cassandra] 5 mg PO DAILY #20 tablet. predniSONE [PredniSONE] 10 mg PO DAILY #9 tablet Roflumilast [Daliresp] 500 mcg PO DAILY #30 tablet Sennosides/Docusate Sodium [Senna Plus] 1 each PO BID #8 tablet Sennosides/Docusate Sodium [Senna Plus] 1 each PO DAILY #8 tablet Tiotropium [Spiriva] 18 mcg IH DAILY #1 inh
--- NOTE | 2017-05-18 12:47 | Event Note ---
Date of Encounter: 05/18/17 Time of Encounter: 12:44 Hospice medical laboratory technicians certification of terminal illness: Hospice benefit. Start: 05/18/2017 Hospice benefit. In: +90 days Palliative performance scale: 40% History: End-stage lung disease. Hypoxia on BiPAP, with hypercapnia of 65 or greater. The patient has had multiple hospitalizations for end-stage lung disease . Patient wishes to forego any further aggressive care. With the multiple hospitalizations and no further aggressive care combined with hypercapnia and hypoxemia I believe that These findings support a life expectancy of 6 months or less. I attest that I have compose the above narrative based on my review of the patient's medical records, and or on my examination of the patient. Devin Ureña M.D. Associate medical reviewer. [facility]
[2017-05-18 15:04] VITALS: BP 111/75
[2017-05-18] MEDS ORDERED: Albuterol 2.5 MG/3 ML NEBULIZER IH SCH (16:00)
== END 2017-05-18 15:25 | disposition hospice, home (50) | DRG 137 ==
LOC: EMEROO 12:13 → ICNU 16:47 → 3ANU 05-15 14:59
PROVIDERS: ADMIT Internal Medicine Hospice and Palliative Medicine; ATTEND Internal Medicine